=== PATIENT | female | born 1990 | race Caucasian/White ===

== ENCOUNTER 2020-03-03 14:21 | Outpatient (REF) | payer MEDICAID, SELFPAY ==
--- NOTE | 2020-03-03 | US_ITS ---
EXAMINATION: US SACROCOCCYGEAL REGION, LIMITED CLINICAL INFORMATION: Sacrococcygeal pain. COMPARISON: Lumbosacral spine radiographs dated 02/04/2017. TECHNIQUE: Using a linear array transducer, real-time ultrasound examination performed of the sacrococcygeal region. FINDINGS: The cutaneous, subcutaneous, muscular and fascial planes are unremarkable. No mass or fluid collection is seen. US/US pelvic limited IMPRESSION: Unremarkable examination.
== END 2020-03-03 14:22 | disposition home or self-care (01) ==
LOC: HO.US 14:21
PROVIDERS: PCP Internal Medicine; Visit Provider Emergency Medicine
DX: M53.3 Sacrococcygeal disorders, not elsewhere classified (principal)
CPT/HCPCS: 76857

== ENCOUNTER 2020-09-05 10:05 | Outpatient (REF) | payer MEDICAID, SELFPAY ==
--- NOTE | ~2020-09-05 | US_ITS ---
EXAMINATION: US THYROID CLINICAL INFORMATION: Goiter COMPARISON: None TECHNIQUE: Linear transducer hu-scale and color Doppler examination with attention to the region of the thyroid. FINDINGS: SIZE: Measurements of the thyroid lobes and nodules are given in sagittal, anteroposterior and transverse dimensions respectively. Right Thyroid Lobe: 4.89 x 1.66 x 1.78 cm, volume 7.57 mL. Parenchyma: The gland echotexture is heterogeneous. Thyroid vascularity is normal. Left Thyroid Lobe: 4.36 x 1.60 x 2.11 cm, volume 7.72 mL. Parenchyma: The gland echotexture is heterogeneous. Thyroid vascularity is normal. Isthmus: 0.61 cm in maximum AP dimension. There is a 0.8 x 0.8 x 0.8 cm solid lesion exophytic to the lateral lower pole of the left lobe. This is slightly hypoechoic with respect to the thyroid gland and demonstrates mild central vascularity. It is uncertain whether this represents a exophytic nodule or parathyroid adenoma or possibly an abnormal appearing lymph node. NODES: There is bilateral cervical lymphadenopathy with 2 right cervical lymph nodes and for left cervical lymph nodes seen... Largest lymph nodes are level 3 lymph nodes on the right measuring 1.8 x 0.8 x 1 cm and 2 x 0.7 x 0.8 cm. Lymph nodes demonstrate normal ultrasound morphology and flow. US/US thyroid IMPRESSION: Heterogeneous thyroid gland. The thyroid gland is normal in size. There is question of an 8 mm exophytic nodule adjacent to the lateral inferior left lobe, parathyroid adenoma or abnormal-appearing lymph node. There is bilateral cervical lymphadenopathy, left greater than right. Correlation with clinical findings and ultrasound follow-up recommended. ACR TI-RADS RECOMMENDATION REFERENCE: Ultrasound-guided fine-needle aspiration, followup ultrasound, no further follow up. * TR1 (0 point) and TR 2 (2 points): No FNA or follow up * TR3 (3 points): FNA if more than or equal to 2.5 cm in maximum dimension, followup ultrasound in 1, 3 and 5 years if 1.5 to 2.4 cm in maximum dimension. * TR4 (4-6 points): FNA if more than or equal to 1.5 cm in maximum dimension, followup ultrasound in 1, 2, 3 and 5 years if 1 to 1.4 cm in maximum dimension. * TR5 (more than or equal to 7 points): FNA if more than or equal to 1 cm in maximum dimension, followup ultrasound every year for 5 years if 0.5 to 0.9 cm in maximum dimension. * TR3, TR4 or TR5 nodules that are below the size threshold for follow up receive no follow up.
== END 2020-09-05 10:06 | disposition home or self-care (01) ==
LOC: HO.HMGCX 10:05
PROVIDERS: PCP Internal Medicine; Visit Provider Internal Medicine
DX: E01.0 Iodine-deficiency related diffuse (endemic) goiter (principal)
CPT/HCPCS: 76536

== ENCOUNTER → 2022-09-18 10:24 | Outpatient (BNVA) | payer MEDICAID, SELFPAY | PROVIDERS: PCP Internal Medicine; Visit Provider Surgery Vascular Surgery | DX: I83.11 Varicose veins of right lower extremity with inflammation (principal) | CPT/HCPCS: 99202 ==

== ENCOUNTER 2022-10-03 10:22 | Outpatient (REF) | payer MEDICAID, SELFPAY ==
--- NOTE | ~2022-10-03 | US_ITS ---
EXAMINATION: US LOWER EXTREMITY VENOUS (REFLUX EXAM), BILATERAL CLINICAL INDICATION: Varicose veins COMPARISON: None. TECHNIQUE: Color flow triplex imaging and compression Doppler was performed to evaluate both the deep and the superficial systems bilaterally. To evaluate the superficial system, the examination was performed in the upright position. Color-flow Doppler ultrasound and compression ultrasound were utilized. In addition, maneuvers were utilized to demonstrate reflux. FINDINGS: 1. DEEP VENOUS ULTRASOUND OF THE RIGHT LOWER EXTREMITY: Common Femoral Vein: Compressible, normal respiratory variation and augmented flow. Femoral Vein: Compressible, normal color flow and augmentation. Popliteal Vein: Compressible, normal augmentation. Deep Reflux: There is a 932ms venous reflux in the mid femoral vein. There is no evidence of a Corey's cyst. 2. SUPERFICIAL ULTRASOUND WITH DOPPLER OF RIGHT LOWER EXTREMITY: GREAT SAPHENOUS VEIN: Saphenofemoral Junction: 0.7 cm; Reflux: 0 ms Proximal Thigh: 0.5 cm; Reflux: 0 ms Mid Thigh: 0.4 cm; Reflux: 0 ms Above Knee: 0.5 cm; Reflux: 0 ms At Knee: 0.5 cm; Reflux: 0 ms Below Knee: 0.4 cm; Reflux: 0 ms Mid Calf: 0.4 cm; Reflux: 0 ms Ankle: 0.4 cm; Reflux: 0 ms DUPLICATED MEDIAL GREAT SAPHENOUS VEIN: Diameter: None imaged DUPLICATED LATERAL GREAT SAPHENOUS VEIN: Proximal: 0.2 cm; Reflux: 0 ms Distal: 0.2 cm; Reflux: 0 ms SMALL SAPHENOUS VEIN: Proximal: 0.2 cm; Reflux: 0 ms Distal: 0.2 cm; Reflux: 0 ms VEIN OF GIACOMINI: Size: NA Reflux: NA PERFORATORS: Location: GSV calf mid Size: 0.2cm Reflux: NA VARICOSITIES: Location: Mid calf Size: 0.2 Reflux: 3548ms 3. DEEP VENOUS ULTRASOUND OF THE LEFT LOWER EXTREMITY: Common Femoral Vein: Compressible, normal respiratory variation and augmented flow. Femoral Vein: Compressible, normal color flow and augmentation. Popliteal Vein: Compressible, normal augmentation. Deep Reflux: There is no evidence of reflux in the deep system in either the common femoral vein or the popliteal vein. There is no evidence of a Corey's cyst. 4. SUPERFICIAL ULTRASOUND WITH DOPPLER OF LEFT LOWER EXTREMITY: GREAT SAPHENOUS VEIN: Saphenofemoral Junction: 0.8 cm; Reflux: 0 ms Proximal Thigh: 0.6 cm; Reflux: 0 ms Mid Thigh: 0.4 cm; Reflux: 1880 ms Above Knee: 0.5 cm; Reflux: 0 ms At Knee: 0.3 cm; Reflux: 0 ms Below Knee: 0.3 cm; Reflux: 0 ms Mid Calf: 0.3 cm; Reflux: 0 ms Ankle: 0.3 cm; Reflux: 0 ms DUPLICATED MEDIAL GREAT SAPHENOUS VEIN: Diameter: None imaged Reflux: NA DUPLICATED LATERAL GREAT SAPHENOUS VEIN: Proximal: 0.4 cm; Reflux: 0 ms SMALL SAPHENOUS VEIN: Proximal: 0.3 cm; Reflux: 0 ms Distal: 0.2 cm; Reflux: 0 ms VEIN OF GIACOMINI: Size: NA Reflux: NA PERFORATORS: Location: Distal calf Size: 0.2cm Reflux: NA VARICOSITIES: Location: Thigh distal Size: 0.3 Reflux: 3364ms Location: Knee Size: 0.3 Reflux: 2744ms US/US venous duplex LE BI IMPRESSION: 1. Right: No evidence of deep venous thrombosis. 2. No reflux in the bilateral great saphenous veins or small saphenous veins. 3. Reflux in the right mid femoral vein. 4. Multiple refluxing varicosities in the left lower extremity.
== END 2022-10-03 10:23 | disposition home or self-care (01) ==
LOC: HO.US 10:22
PROVIDERS: PCP Internal Medicine; Visit Provider Surgery Vascular Surgery
DX: I83.11 Varicose veins of right lower extremity with inflammation (principal)
CPT/HCPCS: 93970

== ENCOUNTER 2022-11-08 10:04 | Outpatient (REF) | payer MEDICAID, SELFPAY ==
--- NOTE | ~2022-11-08 | XR_ITS ---
EXAMINATION: XR KNEE, RIGHT CLINICAL INFORMATION: Pain. COMPARISON: None available. TECHNIQUE: Two views of the right knee. FINDINGS: Somewhat limited by overpenetration. No fracture or joint effusion appreciated. Alignment is anatomic. Joint spaces are maintained. No abnormal soft tissue calcification. XR/XR knee RT 2V IMPRESSION: Essentially unremarkable plain film examination of the right knee.
== END 2022-11-08 10:05 | disposition home or self-care (01) ==
LOC: HO.HHCX 10:04
PROVIDERS: Visit Provider Internal Medicine
DX: M25.561 Pain in right knee (principal)
CPT/HCPCS: 73560

== ENCOUNTER 2022-11-15 13:58 | Outpatient (AMB) | payer MEDICAID, SELFPAY ==
[2022-11-15 13:59] VITALS: BMI 30.7
--- NOTE | 2022-11-15 13:59 | MHC.OFFVIS ---
Intake Vital Signs 11/15/22 13:59 Height 5 ft 4 in Weight 179 lb BMI 30.7 Intake Visit Reasons: f/u s/p 10/03/22 Intake Note: follow up 10/03/22 for bilateral swelling and cramping, pt states Right LE is worse than the Left LE Accompanied by: Self / Same As Patient Allergies No Known Allergies Allergy (Verified 11/15/22 14:02) HPI f/u s/p 10/03/22 HPI Details Very pleasant 32-year-old female presents for follow-up regarding venous disease. Her biggest complaint is her right knee. She notes some discomfort in particular the posterior aspect of her knee. Coincidentally she does have some spider telangiectasias in that area. In general no specific changes since her last visit. She now presents for follow-up with venous insufficiency testing. FOR[facility]LY [facility] Surgical History H/O tubal ligation (~2019) Review of Systems Const All systems reviewed & are unremarkable except as noted in HPI and below Reports no additional complaints ENT Reports Normal hearing present Card Denies chest pain, Denies chest pain at rest, Denies chest pain with activity and Denies pedal edema Resp Denies cough GI Denies abdominal pain Musc Denies abnormal gait, Denies muscle cramps and Denies radiating pain into limb Skin/Breast Denies skin ulcer and Denies wounds Neuro Reports Normal hearing present and Denies abnormal gait Psych Reports no additional complaints Physical Exam Vital Signs: BMI result Body Mass Index 30.7 Const General: cooperative, healthy appearing and comfortable Orientation/consciousness: oriented to person, oriented to place and oriented to time HEENT Head: Yes normal to inspection Neck Neck: Yes normal visual inspection Carotids: no bruits Chest Chest palpation & inspection: normal inspection of the chest Resp Effort & Inspection: normal respiratory effort and able to speak in complete sentences Auscultation: clear to auscultation bilaterally, no crackles, no rales, no rhonchi and no wheezes Cardio Rate: regular rate Rhythm: regular rhythm Heart sounds: S1 normal heart sound present and S2 normal heart sound present Bruits: no carotid bruits Peripheral pulses: Peripheral pulses 2+ throughout GI Inspection: Yes normal to inspection Skin Other: Right knee spider telangiectasias Wounds: no wounds Hair: normal Neuro General: oriented to person, oriented to place and oriented to time Cranial nerves: Yes CN's II-XII intact bilaterally and Yes Normal hearing present Cognition (Neuro): normal cognition Motor exam (neuro): 5/5 motor strength present throughout Extrem Other: venous exam: +1 edema General: No clubbing, No cyanosis and Yes edema Psych Appearance: grossly normal Mental Status: mental status grossly normal Speech and movement: Normal speech and movement present Results Reviewed Results Reviewed: Brief summary of venous insufficiency testing is as follows: right great saphenous vein: negative right small saphenous vein: negative right accessory vein: none present left great saphenous vein: negative left small saphenous vein: negative left accessory vein: none present Please note there is no evidence of any venous aneurysms or significant tortuosity Assessment & Plan Assessment & Plan (1) Varicose veins of right lower extremity with inflammation: Code(s): I83.11 - Varicose veins of right lower extremity with inflammation Plan: In short patient is negative for any significant venous insufficiency. She does have some spider telangiectasias. I do believe it is more musculoskeletal in nature as her knees the source of discomfort. We did discuss routine conservative measures including compression elevation and exercise. The patient will follow up with us on an as-needed basis. Thank you for allowing us to assist in her care. If there are any questions or concerns please do not hesitate to contact us. Coding Level of Care Code Est Pt Level 4 (29892) Diagnoses Varicose veins of right lower extremity with inflammation I83.11
== END 2022-11-15 15:07 | disposition home or self-care (01) ==
PROVIDERS: PCP Internal Medicine; Visit Provider Surgery Vascular Surgery
DX: I83.11 Varicose veins of right lower extremity with inflammation (principal)
CPT/HCPCS: 99213

== ENCOUNTER → 2022-11-15 13:58 | Outpatient (BNVA) | payer MEDICAID, SELFPAY | PROVIDERS: PCP Internal Medicine; Visit Provider Surgery Vascular Surgery ==

== ENCOUNTER 2024-01-22 09:12 | Outpatient (REF) | payer MEDICAID, SELFPAY ==
[2024-01-22 14:57] LABS: Basophils Percent Auto 0.7 % (0-2); Eosinophils Absolute Auto 0.1 X10*3/uL (0.0-0.4); Eosinophils Percent Auto 1.5 % (0-4); Hematocrit 43.1 % (37.0-47.0); Hemoglobin 13.7 g/dl (12.0-16.0); Lymphocytes Absolute Auto 1.9 X10*3/uL (1.2-4.9); MANUAL DIFF FLAG SCAN; Mean Corpuscular HGB Conc 31.8 g/dl (31.0-35.0); Mean Corpuscular Hemoglobin 28.2 pg (27.0-33.0); Mean Corpuscular Volume 88.7 fL (80.0-98.0); Monocytes Absolute Auto 0.3 X10*3/uL (0.1-1.2); Monocytes Percent Auto 6.8 % (2-11); Neutrophils Absolute Auto 1.8 x10*3/uL (2.0-8.3); PLT CLUMP 1; Red Blood Count 4.86 X10*6/uL (4.20-5.50); Red Cell Distribution Width 15.1 % (11.0-16.0); SCAN SMEAR FLAG 1; White Blood Count 4.1 X10*3/uL (4.8-10.8)
[2024-01-22 15:19] LABS: Alanine Aminotransferase 14 U/L (0-31); Albumin Level 4.1 g/dL (3.5-5.0); Alkaline Phosphatase 77 U/L (39-117); Anion Gap 11 (12-20); Aspartate Amino Transferase 16 U/L (5-31); Bilirubin Total 1.8 mg/dL (0.0-1.0); Blood Urea Nitrogen 8 mg/dL (9-16); Calcium 9.2 mg/dL (8.4-10.2); Carbon Dioxide 25 mmol/L (22-29); Chloride 108 mmol/L (96-108); Cholesterol 132 mg/dL (<200); Estimated Glomerular Filt Rate > 60; Glucose Random 91 mg/dL (60-115); HDL Cholesterol 36 mg/dL (>40); LDL Cholesterol Calculated 79 mg/dL (<100); Sodium 140 mmol/L (135-145); Total Protein 7.4 g/dL (6.5-8.0); Triglycerides 89 mg/dL (<150)
[2024-01-22 15:27] LABS: TSH reflex Free T4 1.26 uIU/mL (0.32-4.0)
[2024-01-22 18:27] LABS: Mean Platelet Volume 13.9 fL (9.4-12.3); Platelet Count 165 X10*3/uL (160-400)
[2024-01-22 18:28] LABS: SLIDE REVIEW VERIFIED
[2024-01-23 08:46] LABS: HIV AB/AG Nonreactive (Nonreactive); HIV Num 1 0.06 S/CO (0.00-0.99); ~HepC Num1 0.15 S/CO (0.00-0.79); ~Hepatitis C Antibody Nonreactive (Nonreactive)
== END 2024-01-22 09:13 | disposition home or self-care (01) ==
LOC: HO.CHCLDS 09:12
PROVIDERS: Visit Provider Internal Medicine
DX: E03.8 Other specified hypothyroidism (principal)
CPT/HCPCS: 36415; 80053; 80061; 84443; 85025; 86803; 87389

== ENCOUNTER 2024-04-06 18:22 | Emergency (ER) | payer MEDICAID, SELFPAY ==
--- NOTE | ~2024-04-06 | US_ITS ---
EXAMINATION: US ABDOMEN LIMITED CLINICAL INFORMATION: Right upper quadrant pain. COMPARISON: None available. TECHNIQUE: Real-time imaging of the right upper quadrant abdominal viscera. FINDINGS: PANCREAS: Visualized portions are unremarkable. LIVER: The liver is normal in size. The liver contour is normal. Parenchymal echogenicity is normal. No focal hepatic lesion. There is no intrahepatic biliary duct dilatation seen. GALLBLADDER: Multiple gallstones, which are impacted.. Marked posterior acoustic shadowing.. This limits evaluation of the gallbladder wall and pericholecystic soft tissue.. Manager News reports tenderness in the area of the gallbladder. COMMON BILE DUCT: Normal in caliber measuring 0.2 cm in diameter. RIGHT KIDNEY: No hydronephrosis. No renal calculi or focal parenchymal lesions. The kidney measures 10.4 cm in maximum dimension. FREE FLUID: None. US/US abdomen limited IMPRESSION: Multiple impacted gallstones. Marked posterior acoustic shadowing, limits evaluation of the gallbladder in the surrounding structures.. Manager News reports tenderness in the area of the gallbladder. Findings raise concern for acute cholecystitis. Recommend clinical correlation and management. HIDA scan or short-term follow-up ultrasound for further evaluation as clinically indicated. If clinically warranted, CT scan could be obtained for further evaluation as well. Electronically signed by: Shaquille Majano MD 04/06/2024 10:03 PM [facility]UNN
[2024-04-06 18:25] VITALS: BP 122/86; PULSE 68; RESP 16; TEMP 37; O2SAT 100; BMI 24.0
--- NOTE | 2024-04-06 18:29 | ED_ITS ---
HPI - General Adult General Chief complaint: Abdominal Pain Stated complaint: abdominal pain Time Seen by Provider: 04/06/24 20:53 History of Present Illness ED Provider: Arabella AGUILLON narrative: The patient is a 33-year-old female who says that she has been having problems with the right upper quadrant abdominal pain for a few months. It has been much worse over the last 2 days. Today she had worsening pain after eating lunch and ultimately came to the emergency room this evening. She says that she was told that she had gallstones 11 years ago when she was . The patient says that she feels the pain in her right upper quadrant. She also says that she feels it in her shoulder area. She has had no fever. She has had nausea but no vomiting. No diarrhea. No urinary symptoms. The patient has a history of a tubal ligation and a ?tummy tuck.? Related Data Home Medications ?Medication ?Instructions ?Recorded ?Confirmed levothyroxine 13 mcg capsule 13 mcg PO DAILY 11/15/22 Allergies Allergy/AdvReac Type Severity Reaction Status Date / Time Penicillins AdvReac Swelling Verified 04/06/24 18:27 Review of Systems 2 Review of Systems: Yes all other systems are reviewed and are negative PMFSH Past Medical History Surgical History H/O tubal ligation (~2019) Social History Social History Smoked in Last 30 Days: No Use of substances other than those prescribed or required for medical reasons: No Advance Directives: No Advance Directives Information Provided: No Do you have a plan to hurt others: No Plan Physical Exam ED Vital Signs: Vital Signs - 24 hr 04/06/24 18:25 04/06/24 20:47 04/06/24 23:10 Temperature 98.6 F 97.7 F 98.0 F Pulse Rate 68 58 67 Respiratory Rate 16 16 16 Blood Pressure 122/86 116/78 120/83 Pulse Oximetry 100 97 99 Oxygen Delivery Method Room Air Room Air Room Air 04/06/24 23:13 Temperature 98.0 F Pulse Rate 67 Respiratory Rate 16 Blood Pressure 120/83 Pulse Oximetry 99 Oxygen Delivery Method Room Air BMI result Body Mass Index 24.0 Const Other: The patient is a 33-year-old woman who looks as if she is ordinarily in good health. She is awake and alert. She does not appear obviously acutely ill, however she occasionally seemed in discomfort. HENMT Head: Yes normal to inspection Face and sinus: Yes normal facial exam Mouth: Normal oral and palatal mucosa present and moist mucous membranes Eyes General: appearance normal, both eyes and all related structures Neck Neck: Yes full ROM Resp Effort & Inspection: normal respiratory effort Auscultation: clear to auscultation bilaterally Cardio Rate: regular rate Rhythm: regular rhythm Heart sounds: S1 normal heart sound present and S2 normal heart sound present GI Other: The abdomen is flat and soft. She is quite tender in the right upper quadrant. Skin Other: Skin is dry and unremarkable Neuro Other: The patient is awake and alert with a normal mental status. Cranial nerves are intact. She moves her extremities normally and appropriately. Extrem Other: No calf swelling or tenderness. No peripheral edema. No asymmetry. Course Course Course Narrative: This is an RME done by [facility] Ascencio: Additional HPI, ROS, PE not included below will be deferred to primary provider. 33-year-old female presents with right upper quadrant abdominal pain for a few weeks worsening acutely. Reports pain is worse with movement, breathing, she reports it is severe. Stabbing pain. Associated nausea no vomiting. No chances of . On exam discomfort to right upper quadrant. Plan labs, urine, imaging Medications Administered Discontinued Medications Generic Name Dose Route Start Last Admin Trade Name Freq PRN Reason Stop Dose Admin Sodium Chloride 1,000 mls @ 999 mls/hr 04/06/24 21:15 04/06/24 23:07 Ns IV 04/06/24 22:15 Infused .Q1H1M WILLOW Infusion Ketorolac Tromethamine 10 mg 04/06/24 21:15 04/06/24 21:28 Ketorolac Tromethamine 15 Mg/Ml Vial IVPUSH 04/06/24 21:16 10 mg ONCE ONE Administration Medical Decision Making Medical Decision Making [facility] Narrative: The patient is a 33-year-old woman who presents with 2 days of right upper quadrant pain. She says she has had mild pains for several months but they are much worse over the last 2 days. Pains are worse after eating greasy foods. She says that she was told 11 years ago when she was that she had gallstones. The patient's workup today shows a gallbladder ultrasound that shows multiple gallstones impacted in the gallbladder. The shadowing artifact created by these gallstones limits the description of the gallbladder wall. There was a reported sonographic Espinoza's sign. The patient's labs are unremarkable. She has a white count of 5.5 with a normal differential. LFTs and lipase are unremarkable. C-reactive protein minimally elevated at 0.98. My overall impression is that the patient is having symptomatic cholelithiasis. I doubt that she has cholecystitis. The patient was treated with ketorolac for her pain. I contacted the on-call surgeon, Dr. Rose, and explained that the patient was having a great deal of symptoms related to gallstones last 2 days. His recommendation is for discharge with prompt outpatient follow up. The patient will be instructed to avoid fatty or greasy foods. She should contact the General surgery office in the morning for a prompt follow up appointment. The patient seems comfortable with this plan. She knows that if she develops a fever or vomiting she should return immediately to the emergency room. Lab Data 04/06/24 18:45 04/06/24 18:45 Labs: Lab Results 04/06/24 Range/Units 18:45 WBC 5.5 (4.8-10.8) X10*3/uL RBC 4.49 (4.20-5.50) X10*6/uL Hgb 13.1 (12.0-16.0) g/dl Hct 38.9 (37.0-47.0) % MCV 86.6 (80.0-98.0) fL MCH 29.2 (27.0-33.0) pg MCHC 33.7 (31.0-35.0) g/dl RDW 14.7 (11.0-16.0) % Plt Count 175 (160-400) X10*3/uL MPV 12.7 H (9.4-12.3) fL Immature Gran % (Auto) 0.2 (0.0-0.4) % Neut % (Auto) 48.1 (45-73) % Lymph % (Auto) 42.7 H (20-40) % Steele % (Auto) 7.0 (2-11) % Eos % (Auto) 1.5 (0-4) % Baso % (Auto) 0.5 (0-2) % Lymph # (Auto) 2.3 (1.2-4.9) X10*3/uL Steele # (Auto) 0.4 (0.1-1.2) X10*3/uL Eos # (Auto) 0.1 (0.0-0.4) X10*3/uL Baso # (Auto) 0.0 (0.0-0.2) X10*3/uL Abs Immat Gran (auto) 0.01 (0.00-0.03) X10*3/uL Absolute Neuts (auto) 2.6 (2.0-8.3) x10*3/uL Absolute Nucleated RBC 0.000 (0.0-0.012) X10*3/uL Nucleated RBC % (auto) 0.0 (0.0-0.2) /100WBC Sodium 140 (135-145) mmol/L Potassium 3.8 (3.3-5.1) mmol/L Chloride 108 (96-108) mmol/L Carbon Dioxide 25 (22-29) mmol/L Anion Gap 11 L (12-20) BUN 12 (9-16) mg/dL Creatinine 0.93 (0.5-1.4) mg/dL Estim Creat Clear Calc 75.0 Estimated GFR > 60 Random Glucose 117 H (60-115) mg/dL Calcium 8.9 (8.4-10.2) mg/dL Magnesium 2.2 (1.6-2.6) mg/dL Total Bilirubin 1.7 H (0.0-1.0) mg/dL Direct Bilirubin 0.4 (0.0-0.5) mg/dL AST 23 (5-31) U/L ALT 22 (0-31) U/L Alkaline Phosphatase 73 (39-117) U/L C-Reactive Protein 0.98 H (< or = 0.50) mg/dL Total Protein 7.3 (6.5-8.0) g/dL Albumin 4.0 (3.5-5.0) g/dL Lipase 27 (8-78) U/L Beta HCG, Quant < 2 mIU/mL Discharge Plan Discharge Clinical Impression: Symptomatic cholelithiasis Patient Disposition: Home, Self-Care Instructions: Biliary Colic (ED), Gallstones (ED) Additional Instructions: Please plan on calling the General surgery office 1st thing in the morning. Call [phone]. Explained that you were in the emergency room and that the emergency room doctor communicated with Dr. Rose about your gallbladder and your gallstones and that you were to be seen soon. Between now and the time you see Dr. Rose I would recommend eating very little. What you do each should be planned and should also be very low in fat. No greasy food, no butter, no spicy food. If at any point you develop a fever or vomiting or feel significantly worse return to the emergency department. Prescriptions: No Action levothyroxine 13 mcg capsule 13 mcg PO DAILY Referrals: Vitor Rose MD [Physician] - (Symptomatic cholelithiasis, impacted gallstones) Interventions: ED Discharge Assessment Last Done: 04/06/24 23:13 Discharge Date/Time: 04/06/24 23:13 Print Language: Citizen Of [place]
[2024-04-06 18:50] LABS: MANUAL DIFF FLAG NO
[2024-04-06 18:52] LABS: Basophils Percent Auto 0.5 % (0-2); Eosinophils Absolute Auto 0.1 X10*3/uL (0.0-0.4); Eosinophils Percent Auto 1.5 % (0-4); Hematocrit 38.9 % (37.0-47.0); Hemoglobin 13.1 g/dl (12.0-16.0); Imm Gran Abs Auto 0.01 X10*3/uL (0.00-0.03); Imm Gran Pct Auto 0.2 % (0.0-0.4); Lymphocytes Absolute Auto 2.3 X10*3/uL (1.2-4.9); Lymphocytes Percent Auto 42.7 % (20-40); Mean Corpuscular HGB Conc 33.7 g/dl (31.0-35.0); Mean Corpuscular Hemoglobin 29.2 pg (27.0-33.0); Mean Corpuscular Volume 86.6 fL (80.0-98.0); Mean Platelet Volume 12.7 fL (9.4-12.3); Monocytes Absolute Auto 0.4 X10*3/uL (0.1-1.2); Neutrophils Absolute Auto 2.6 x10*3/uL (2.0-8.3); Neutrophils Percent Auto 48.1 % (45-73); Platelet Count 175 X10*3/uL (160-400); Red Blood Count 4.49 X10*6/uL (4.20-5.50); Red Cell Distribution Width 14.7 % (11.0-16.0); White Blood Count 5.5 X10*3/uL (4.8-10.8)
[2024-04-06 19:26] LABS: Alanine Aminotransferase 22 U/L (0-31); Alkaline Phosphatase 73 U/L (39-117); Anion Gap 11 (12-20); Aspartate Amino Transferase 23 U/L (5-31); Bilirubin Total 1.7 mg/dL (0.0-1.0); Blood Urea Nitrogen 12 mg/dL (9-16); Calcium 8.9 mg/dL (8.4-10.2); Carbon Dioxide 25 mmol/L (22-29); Chloride 108 mmol/L (96-108); Estimated Glomerular Filt Rate > 60; Glucose Random 117 mg/dL (60-115); Lipase 27 U/L (8-78); Magnesium 2.2 mg/dL (1.6-2.6); Potassium 3.8 mmol/L (3.3-5.1); Sodium 140 mmol/L (135-145); Total Protein 7.3 g/dL (6.5-8.0)
[2024-04-06 19:28] LABS: HCG Quantitative < 2 mIU/mL
[2024-04-06 20:47] VITALS: BP 116/78; PULSE 58; RESP 16; TEMP 36.5; O2SAT 97
[2024-04-06 21:24] LABS: C Reactive Protein 0.98 mg/dL (< or = 0.50)
[2024-04-06] MEDS: 0.9 % Sodium Chloride 1,000 ML 999 ML IV (21:27)
[2024-04-06] MEDS: Ketorolac Tromethamine 15 MG/ML VIAL 10 MG IVPUSH (21:28)
[2024-04-06 22:05] LABS: Bilirubin Direct 0.4 mg/dL (0.0-0.5)
[2024-04-06 23:10] VITALS: BP 120/83; PULSE 67; RESP 16; TEMP 36.7; O2SAT 99
[2024-04-06 23:13] VITALS: BP 120/83; PULSE 67; RESP 16; TEMP 36.7; O2SAT 99
== END 2024-04-06 23:13 | disposition home or self-care (01) ==
PROVIDERS: Physician Assistant; Emergency Provider Emergency Medicine
DX: K80.20 Calculus of gallbladder without cholecystitis without obstruction (principal); R10.11 Right upper quadrant pain; Z98.51 Tubal ligation status
CPT/HCPCS: 36415; 76705; 80053; 82248; 83690; 83735; 84702; 85025; 86140; 96361; 96374; 99284; J1885

== ENCOUNTER 2024-04-13 13:31 | Outpatient (AMB) | payer MEDICAID, SELFPAY ==
[2024-04-13 13:52] VITALS: BP 121/84; PULSE 69; BMI 26.1
--- NOTE | 2024-04-13 13:52 | MHC.OFFVIS ---
Vital Signs 04/13/24 13:52 Height 5 ft 4 in Weight 152 lb BMI 26.1 BP 121/84 Blood Pressure Location Lt brachial Position Sitting Pulse 69 Intake Visit Reasons: ER Gallstones [id number] Intake Note: Patient referred after ER visit. Patient c/o: abdominal pain due her gall bladder Abd US: 04-06-2024 Public Health Policy Analyst Required: Yes Public Health Policy Analyst Name: alen [id number] Accompanied by: Self / Same As Patient Allergies Penicillins Adverse Reaction (Verified 04/13/24 13:52) Swelling HPI Comments Details: Patient presents status post recent ER visit for symptomatic gallstones/recurrent biliary colic. Workup which included sonogram demonstrated significant cholelithiasis. Patient presents here for follow-up. She is otherwise tolerating a diet. Having regular bowel habits. Her symptoms have included postprandial pain rated upper quadrant/epigastrium radiating around to her back. She has never been jaundiced before. Chart was reviewed and patient evaluated. Patient was status post abdominal plasty. FORMERLY [facility] Surgical History H/O tubal ligation (~2019) Physical Exam Vital Signs: Last Vital Signs Pulse 69 04/13/24 13:52 BP 121/84 04/13/24 13:52 BMI result Body Mass Index 26.1 Eyes Other: Anicteric Chest Other: Chest breath sounds bilaterally, HS 1 in 2 GI Other: Abdomen is soft, benign. Assessment & Plan Assessment & Plan (1) Recurrent biliary colic: Code(s): K80.50 - Calculus of bile duct without cholangitis or cholecystitis without obstruction Category: Surgical Plan Risks, benefits, and alternatives laparoscopic possible open cholecystectomy reviewed with the patient and included but not limited to bleeding, infection, recurrence of symptoms, numbness, pain, scarring, bowel or bile duct injury or leak and the patient wished to proceed. All questions answered. Arrangements were made for a date that is convenient for her Coding Level of Care Code New Pt Level 5 (65299) Diagnoses Recurrent biliary colic K80.50
== END 2024-04-13 14:18 | disposition home or self-care (01) ==
PROVIDERS: Visit Provider Surgery
DX: K80.50 Calculus of bile duct without cholangitis or cholecystitis without obstruction (principal)
CPT/HCPCS: 99205

== ENCOUNTER → 2024-04-13 13:31 | Outpatient (BNVA) | payer MEDICAID, SELFPAY | PROVIDERS: Visit Provider Surgery | DX: K80.50 Calculus of bile duct without cholangitis or cholecystitis without obstruction (principal) | CPT/HCPCS: 99202 ==

== ENCOUNTER 2024-05-28 08:12 | Day surgery (SDC) | payer MEDICAID, SELFPAY ==
[2024-05-26 14:49] VITALS: BMI 26.1
--- NOTE | 2024-05-27 09:28 | MHC.SHP ---
Pre-Procedural Eval Section A - 24 Hr Update-Section A only Date of Service: 05/28/24 The patient is an INPATIENT: No Changes since office visit: No Cold of Flu in the past 2 weeks, No New Medical Problems, No Changes in Medication and No Patient answered all questions Section B - Complete if H&P > 30 days Chief Complaint: Calculus of bile duct without cholangitis or zay Allergies: Allergies Allergy/AdvReac Type Severity Reaction Status Date / Time Penicillins AdvReac Swelling Verified 04/13/24 13:52 Review of Systems Sugical H&P ROS: Negative: Constitution, Cardiovascular, Respiratory, Neurological, Psychiatric, Hem-Onc, Allergic/Immunologic, Gastrointestinal, Genitourinary, Musculoskeletal, Integumentary, Endocrine and Eyes/Ears/Nose/Throat Exam Surgical H&P Exam: Normal: HEENT, Normal: Heart, Normal: Lungs, Normal: Extremities, Normal: Abdomen, Normal: Skin and Normal: Neurological Plan I have reviewed the history and physical and performed a pertinent physical examination on my patient. No changes have occurred unless specified. Time Spent With Patient Time: Total time managing care of this patient today ____ minutes.
[2024-05-28] VITALS (12 sets, daily range): BP systolic 114–152; BP diastolic 77–103; PULSE 59–90; RESP 14–16; TEMP 35.9–37.1; O2SAT 94–100; BMI 27.1
--- OUTSIDE RECORDS SUMMARY | 2024-05-28 08:15 | XMS_ITS | Encounter Summary ---
Author Organization [employer] Address [address] [facility] 7 [place] [address] Care Team Providers Care Station Engineer Main Line Name Role Phone Trina Fang MD Primary Care Provider [phone] Reason for Visit * Reason Onset Date Comments FYI 01/22/2024 Encounter Details Date Type Department Care Team (Late st Contact Info) Description 01/22/2024 Telephone [facility] [address] [place] [address] Trina Fang MD [address] [place] [place], [place] [id number] FYI Social History Tobacco Use Types Packs/Day Years Used Date Smoking Tobacco: Never Passive Smoke Exposure: Never Smokeless Tobacco: Never Alcohol Use Standard Drinks/Week Comments Yes 0 (1 standard drink = 0.6 oz pur e alcohol) Depression Answer Date Recorded Patient Health Questionnaire-9 Score 4 01/21/2024 Patient Health Questionnaire-9 Score 4 01/21/2024 Last PHQ-9: Questionnaire Data Not on file 1 Housing Stability Answer Date Recorded What is your housing situation today? I have kimberly lopez 01/14/[address] you li ve. Do you have problems with any of the following? None of the above 01/14/2024 Food Insecurity Answer Date Recorded Within the past 12 months, y ou worried that your food would run out before you got money to buy more: Never True 01/14/2024 Within the past 12 months,th e food you bought just didn't last and you didn't have enough money to get more: Never True Transportation Answer Date Recorded In the past 12 months, has l ack of transportation kept you from medical appts, meetings, work or from getting things needed for daily living? No 01/14/2024 Utilities Answer Date Recorded In the past 12 months, has t he electric, gas, oil or water company threatened to shut off services in your home? No 01/14/2024 Depression Answer Date Recorded Patient Health Questionnaire-2 Score 0 01/21/2024 Internet Access Answer Date Recorded Internet Access Q1 Yes 01/14/2024 Internet Access Q2 Not on file 01/14/2024 Comments No Sex and Gender Information Value Date Recorded Sex Assigned at Female 02/19/2022 10:28 AM EDT Legal Sex Female 10:28 AM EDT Gender Identity Female 02/19/2022 10:28 AM EDT Sexual Orientation Straight 02/19/2022 10 :28 AM EDT documented as of this encounter Miscellaneous Notes * Telephone Encounter - Ni Interiano - 01/22/2024 9:48 AM EDT Tc from pt calling in regards to address change pt correct address is updated on file - [address] [place] [address], pt stated address [facility] [address] [facility] was incorrect and is unsure who added address on file. Advised will leave message as FYI. documented in this encounter Plan of Treatment Not on file documented as of this encounter Visit Diagnoses Not on filedocumented in this encounter Additional Health Concerns Assessment Noted Time PHQ-9 Depression Total Score: 4 01/21/20 24 1:31 PM EDT documented as of this encounter Care Teams Station Engineer Main Line Relationship Specialty Start Date End Date Trina Fang MD [address] [facility] [place] [address] PCP - General Internal Medicine 04/18/17 documented as of this encounter
--- OUTSIDE RECORDS SUMMARY | 2024-05-28 08:15 | XMS_ITS | Clinical Summary ---
Author Organization [address] Address [address] [place] [address], [place] [address] Care Team Providers Care Mosaic Tile Maker Name Role Phone Ruddy Logan MD Primary Care Prov ider Allergies Active Allergy Reactions Criticality Noted Date Comments Aspirin Swelling,Other (See Comments) High 10/06/2013 Gastric bleeding Latex, Natural Rubber 01/26/2014 Penicillins Hives High 10/06/2013 Shellfish Containing Products Swelling Medium 08/31/2014 Medications dextromethorphan -guaifenesin 15-400 mg Tab Take 1 tablet by mouth 2 (two) times daily as needed. 15 each 0 04/26/2014 Active norelgestromin-e thinyl estradiol (ORTHO EVRA) 150-35 mcg/[address] 1 patch onto the skin once a week. Apply to clean, dry intact skin on the buttock, abdomen, upper outer arm or upper torso 4 patch 6 09/09/2014 Active Active Problems Patient Care Coordination No te Formatting of this note migh t be different from the original. Health Literacy Screening= 3 Problem Noted Date Diagnosed Date Need for Tdap vaccination 12/13/2014 Overview (12/13/2014): No record of recent tetanus or Tdap in outside records received from [employer] [facility] Thyromegaly 08/19/2014 Overview (09/16/2014): Normal TSH and thyroid ultrasound in August 2014. Back pain, chronic 08/19/2014 Resolved Problems Problem Noted Date Diagnosed Date Resolved Date Backache 08/19/2014 Overview (10/02/2016): Updated during IMO/Dx update September 2016 Immunizations Name Administration Dates Next Due HPV, quadrivalent 11/12/2013,10/09/2013,03/04/20 13 Family History Medical History Relation Name Comments Thyroid disease Brother Diabetes Father Hypertension Father Osteoporosis Maternal Grandmother Arthritis Mother Breast cancer Neg Hx Cancer Neg Hx Colon cancer Neg Hx Heart attack Neg Hx High cholesterol Neg Hx Stroke Neg Hx Relation Name Status Comments Brother Alive Father Alive Maternal Grandmother Alive Mother Alive Sister Alive Social History Tobacco Use Types Packs/Day Years Used Date Smoking Tobacco: Never Alcohol Use Standard Drinks/Week Comments No 0 (1 standard drink = 0.6 oz pur e alcohol) Comments No Sex and Gender Information Value Date Recorded Sex Assigned at Not on file Legal Sex Female 9:45 AM EST Gender Identity Not on file Sexual Orientation Not on file Last Filed Vital Signs Vital Sign Reading Time Taken Comments Blood Pressure 108/62 09/14/2014 10:55 AM EDT Pulse 82 09/14/2014 10:55 AM EDT Temperature 36.8 ??C (98.3 ??F) 09/14/2014 10:55 AM E DT Respiratory Rate 17 09/14/2014 10:55 AM EDT Oxygen Saturation 98% 09/14/2014 10:55 AM EDT Inhaled Oxygen Concentration - - Weight 70.4 kg (155 lb 3.2 oz) 09/14/2014 10:55 AM EDT Height 164.5 cm (5' 4.76 ) 09/14/2014 10:55 AM E DT Body Mass Index 26.02 09/14/2014 10:55 AM EDT Plan of Treatment Health Maintenance Due Date Last Done Comments Tetanus adult (Td q 10,TDAP once) 2011 Cervical cancer screening 09/10/2019 09/09/2014 Influenza vaccine 11/21/2023 Covid-19 vaccine series (2023- season) 2023 RSV Discussion (1 - 1-dose 7 5+ series) 07/22/2066 HIV screening Completed 09/14/2014, 08/19/2014 Hepatitis C screening Completed 09/14/2014 Meningococcal Vaccine Aged Out No bambi michelle eligible based on patient's age to complete this topic Pneumococcal Vaccine Aged Out No long er eligible based on patient's age to complete this topic Procedures Procedure Name Priority Date/Time Associated Diagnosis Comments HIV 1/2 ANTIGEN/ANTIBODY, 4TH GENERATION W/REFL (Q) Routine 09/14/2014 11:34 AM EDT HEPATITIS C AB WITH REFLEX TO HCV PCR Routine 09/14/2014 11:34 AM EDT Routine screening for STI (sexually transmitted infection) THINPREP TIS PAP (Q) Routine 09/09/2014 4:23 PM EDT Pap smear for cervical cancer screening from Last 3 Months or Most Recently Relevant to Health Maintenance Results * HIV 1/2 antigen/antibody, 4th generation w/refl (Q) (09/14/2014 11:34 AM EDT) HIV Ag/Ab, 4th Generation NON-REACT SOREN NON-REACT SOREN [facility] Comment: A Nonreactive HIV Ag/Ab result does not exclude HIV infection since the time frame for seroconversion is variable. If acute HIV infection is suspected, a HIV-1 RNA Qualitative TMA test is recommended. PLEASE NOTE: This information has been disclosed to you from records whose confidentiality may be protected by state law. ??If your state requires such protection, then the state law prohibits you from making any further disclosure of the information without the specific written consent of the person to whom it pertains, or as otherwise permitted by law. ??A general authorization for the release of medical or other information is NOT sufficient for this purpose. The performance of this assay has not been clinically validated in patients less than 2 years old. For additional information please refer to http://education.needmade.Contently/faq/GSG780 (This link is being provided for informational/ educational purposes only.) 09/14/2014 11:3 4 AM EDT 09/14/2014 11:34 AM EDT Narrative Resulting Agency Comment Performing Organization Information: ?Site ID: [id number] ?Name: [employer] ?Address: [address] [place] [address], [facility] [place] [address] ?Director: Laura Puga MD Edel Gooden [facility] LAB BLOOD ORDERABLES Final Re sult Performing Organization Address [facility] Co de Phone Number [facility] [address] [place], [place] [id number] [place] [address] * Hepatitis C antibody (09/14/2014 11:34 AM EDT) Hepatitis C Ab NON-REACTI VE NON-REACTI VE [facility] Signal To Cut-Off 0.02 <1.00 [facility] Blood specimen (specimen) 09/14/2014 11:34 AM EDT 09/14/2014 11:34 AM EDT Narrative Resulting Agency Comment Performing Organization Information: ?Site ID: [id number] ?Name: [facility] ?Address: [address] [place] [address], [facility] [place] [address] ?Director: Laura Puga MD Edel Hymanel [facility] LAB BLOOD ORDERABLES Final Re sult Performing Organization Address [facility] de Phone Number [facility] [address] [place] [id number] [place] [address] * Thinprep TIS PAP (Q) (09/09/2014 4:23 PM EDT) Pathologist [facility] Clinical Information NONE GIVEN [facility] Lmp: 08/24/2014 [facility] Prev. Pap: NONE GIVEN [facility] Prev. Bx: NONE GIVEN [facility] Source: Cervix [facility] Statement Of Adequacy: [facility] Comment: Satisfactory for evaluation. Endocervical/transformation zone component present. Interpretation/Resu lt: [facility] Comment:Negative for intraep ithelial lesion or malignancy. Comment: [facility] Comment: This Pap test has been evaluated with computer assisted technology. Assembler Type Bar And Segment: [facility] Comment:MXD, CT (ASCP) Specimen of unknown material (specimen) 09/09/2014 4:23 PM EDT 09/10/2014 8:59 AM EDT Narrative Resulting Agency Comment Performing Organization Information: ?Site ID: [id number] ?Name: [facility] ?Address: [address] [place] [address], [place] [address] ?Director: Laura Puga MD Edel Gooden [facility] BODY FLUIDS AND STOOLS ORDERA BLES Final Result [facility] [address] [place] [address] from Last 3 Months or Most Recently Relevant to Health Maintenance Insurance [place] Care Teams Mosaic Tile Maker Relationship Specialty Start Date End Date Ruddy Logan MD [address] [place] [address] PCP - General 03/03/20
--- OUTSIDE RECORDS SUMMARY | 2024-05-28 08:15 | XMS_ITS | Clinical Summary ---
Author Organization [facility] [employer] Address [address] [place] [address] Care Team Providers Care Seismograph Shooter Name Role Phone Trina Fang MD Primary Care Provider [phone] Allergies Active Allergy Reactions Criticality Noted Date Comments Aspirin Swelling 09/03/2022 Penicillins Swelling,Unknown 01/06/2016 Shellfish Allergy Hives 09/03/2022 Other reaction(s): dyspnea Medications * This document contains information received from the source organization and may not represent a complete record from that organization. Calcium Carb-Cholecalc iferol 500-10 MG-MCG tablet Take 1 tablet by mouth at bed time. 0 Active famotidine (Pepcid) 20 MG tablet Take 1 tablet by mouth. 2 Active FLUoxetine (PROzac) 10 MG tablet Take 1 tablet by mouth at bed time. 2 Active hydrOXYzine HCl (Atarax) 25 MG tablet take 1 tablet to 2 tab by oral route at bedtime 2 Active medroxyPROGEST ERone (Depo-Provera) 400 MG/ML suspension inject 1 milliliter by intramuscular route every month Active multivitamin (Theragran) tablet Take 1 tablet by mouth. 9 Active Neomycin-Polym yxin-HC 1 % solutionIndica tions:Ear ache Administer 4 drops into affected ear(s) 4 times daily. 10 mL 3 Active Diclofenac Sodium 1 % gelIndications :Acute pain of right knee APPLY 2 GRAM'S TO AFFECTED AREA(s) TWICE DAILY NEEDED FOR SEVERE PAIN 100 g 3 Active levothyroxine (Synthroid, Levoxyl) 50 MCG tablet Take 50 mcg by mouth. 3 Active acyclovir (Zovirax) 5 % cream TO THE AFFECTED AREA(s) FIVE TIMES DAILY DIRECTED 5 g 4 Active tacrolimus (Protopic) 0.1 % ointment Apply topically 2 times daily. 60 g 1 4 11/27/19 25 Active triamcinolone (Kenalog) 0.1 % creamIndicatio ns:Psoriasis APPLY TO THE AFFECTED AREA(S) TWICE DAILY IN THE MORNING AND AT BEDTIME FOR PAIN AND FOR SWELLING 30 g 2 4 Active betamethasone valerate (Valisone) 0.1 % ointmentIndica tions:Psoriasi s Apply topically if needed in the morning and at bedtime (dryness). 45 g 2 4 Active Active Problems Problem Noted Date Diagnosed Date Acute pain of right knee 11/08/2022 Assessment & Plan (11/08/2022 10:01 AM EDT): Apply ice elevate knee and rest Hypothyroid 08/07/2022 Encounters Date Type Department Care Team Description 05/26/2024 Refill [facility] [address] [place] [address] Jasper Alvarez MD 04/07/2024 10:30 AM EST Office Visit [facility] [address] [place] [address] Trina Fang MD Psoriasis (Primary Dx) 04/07/2024 Travel 03/26/2024 Refill [facility] [address] [place] [address] Trina Fang MD Psoriasis 03/06/2024 8:00 AM EST Office Visit [facility] [address] [place] [address] Julito Ortiz from Last 3 Months Social History Tobacco Use Types Packs/Day Years Used Date Smoking Tobacco: Never Passive Smoke Exposure: Never Smokeless Tobacco: Never Tobacco Cessation:Counseling Given: Not Answered Alcohol Use Standard Drinks/Week Comments Yes 0 [...] Orientation Straight 02/19/2022 10 :28 AM EDT Last Filed Vital Signs Vital Sign Reading Time Taken Comments Blood Pressure 122/77 04/07/2024 10:34 AM EST Pulse 61 04/07/2024 10:34 AM EST Temperature 36.7 ??C (98 ??F) 04/07/2024 10:34 AM EST Respiratory Rate 20 04/07/2024 10:34 AM EST Oxygen Saturation 99% 04/07/2024 10:34 AM EST Inhaled Oxygen Concentration - - Weight 72.6 kg (160 lb) 04/07/2024 10:34 AM EST Height 162.6 cm (5' 4 ) 04/07/2024 10:34 AM EST Body Mass Index 27.46 04/07/2024 10:34 AM EST Plan of Treatment Health Maintenance Due Date Last Done Comments Alcohol/Substance Use Screening 2003 Family Planning (PISQ) 07/22/2006 Hepatitis A Vaccines (1 of 2 - Risk 2-dose series) 07/22/2010 HPV Vaccines (3 - 3-dose series) 02/04/2014 11/12/2013, 10/09/2013, 03/04/2013 COVID-19 Vaccine (3 - 2023-2 5 season) 2023 11/08/2020, 10/18/2020 Influenza Vaccine (#1) 2023 02/10/2015 Dental Oral Exam 06/25/2024 12/26/2023, 05/21/2022 Dental Prophylaxis 06/25/2024 12/26/2023, 11/21/2022, 05/21/2022 Dental X-Ray: Bitewings 12/26/2024 12/26/19 24, 05/21/2022, 05/21/2022 SDOH Screening 01/13/2025 01/14/2024 Depression Screening 01/20/2025 01/21/2024, 01/21/2024 Tobacco Screening 04/07/2025 04/07/2024 Dental X-Ray: Full Mouth 05/22/2025 023, 05/21/2022 Cervical Cancer Screening 09/22/2027 HPV/Cotest 09/22/2027 09/21/2022 Pap Smear 09/22/2027 09/21/2022 DTaP/Tdap/Td Vaccines (4 - T d or Tdap) 06/10/2028 06/10/2018, 10/04/2015, 02/15/2015 Zoster Vaccines (1 of 2) 07/22/2041 RSV Patients and Patients Aged 60 years or older (1 - 1-dose 75+ series) 07/22/2066 Hepatitis B Vaccines Completed 10/18/2016, 03/24/2015, 02/15/2015 HIV Screening Completed 01/22/2024 Hepatitis C Screening Completed 01/22/2024 , 08/09/2022 HIB Vaccines Aged Out No longer eligi ble based on patient's age to complete this topic IPV Vaccines Aged Out No longer eligi ble based on patient's age to complete this topic Meningococcal Vaccine Aged Out No bambi michelle eligible based on patient's age to complete this topic Pneumococcal Vaccine: Pediatrics (0 to 5 Years) and At-Risk Patients (6 to 49) Years) Aged Out No longer eligible b ased on patient's age to complete this topic RSV under 20 months Aged Out No longe r eligible based on patient's age to complete this topic Rotavirus Vaccines Aged Out No longer eligible based on patient's age to complete this topic Procedures Procedure Name Priority Date/Time Associated Diagnosis Comments 18 MO RESTORATIVE - RESIN-BASED COMPOSITE RESTORATIONS - DIRECT - RESIN-BASED COMPOSITE - TWO SURFACES, POSTERIOR Routine 03/06/2024 8:00 AM EST HEPATITIS C AB W/REFL TO HCV RNA, QN, PCR Routine 01/22/2024 9:13 AM EDT Other specified hypothyroidism HIV 1/2 ANTIGEN/ANTIBODY, FOURTH GENERATION W/RFL Routine 01/22/2024 9:13 AM EDT Other specified hypothyroidism Full PROPHYLAXIS - ADULT Routine 12/26/2023 10:00 AM EDT BITEWINGS - 4 RADIOGRAPHIC IMAGES Routine 12/26/2023 10:00 AM EDT PERIODIC ORAL EVALUATION - ESTABLISHED PATIENT Routine 12/26/2023 10:00 AM EDT HM PAP/HPV Routine 09/21/2022 DIAGNOSTIC - DIAGNOSTIC IMAGING - INTRAORAL - COMPREHENSIVE SERIES OF RADIOGRAPHIC IMAGES Routine 05/21/2022 10:00 AM EST from Last 3 Months or Most Recently Relevant to Health Maintenance Results * Hepatitis C Antibody with Reflex to HCV, RNA, Quantitative, Real-Time PCR (01/22/2024 9:13 AM EDT) Hepatitis C Antibody Nonreactive Nonreactive [facility] Comment:Antibodies to HCV no t detected; does not exclude early acuteHCV infection. Blood Venous blood specimen / Unknown 01/22/2024 9:13 AM EDT 01/22/2024 2:37 PM EDT us Trina Fang MD LAB BLOOD ORDERABLES Final Result [facility] [address] [place] [address] [phone] * HIV-1/2 Antigen and Antibodies, Fourth Generation, with Reflexes (01/22/2024 9:13 AM EDT) HIV AB/AG Nonreactive Nonreactive [facility] Comment:HIV-1 p24 Ag and/or HIV-1/HIV-2 Ab not detected.A test result that is nonreactive does not exclude thepossibility of exposure to or infection with HIV-1 and/orHIV-2. Nonreactive results in this assay for individualswith prior exposure to HIV-1 and/or HIV-2 may be due toantigen and antibody levels that are below the limit ofdetection of this assay.The [employer] HIV Ag/Ab Combo assay result andsupplemental assay results should be interpreted inconjunction with the patient's clinical presentation,history and other laboratory results. If the results areinconsistent with clinical evidence, additional testing issuggested to confirm the result. Blood Venous blood specimen / Unknown 01/22/2024 9:13 AM EDT 01/22/2024 2:37 PM EDT Trina Fang MD LAB BLOOD ORDERABLES Final Result [facility] [address] [place] [address] [phone] * Hm Pap Smear (09/21/2022) Pap Negative for intraephithelial lesion or malignancy Negative for intraephithelial lesion or malignancy, Other HPV Undetected Undetected, Indeterminate, Quantitative, Not Detected Rosalia Provider HEALTH MAINTENANCE Final Result from Last 3 Months or Most Recently Relevant to Health Maintenance Insurance [facility] C3 Care Teams Seismograph Shooter Relationship Specialty Start Date End Date Trina Fang MD [address] [place] [address] FE [id number] PCP - General Internal Medicine 04/18/17
--- OUTSIDE RECORDS SUMMARY | 2024-05-28 08:16 | XMS_ITS | Encounter Summary ---
Author Organization [employer] Address [address] [place] [address] 7 [place] [address] Care Team Providers Care Metalworker Name Role Phone Trina Fang MD Primary Care Provider [phone] Reason for Visit * Reason Onset Date Comments reschedule appt 01/30/2024 Encounter Details Date Type Department Care Team ([facility] st Contact Info) Description 01/30/2024 Telephone [facility] [address] [place] [address] Julito Ortiz [address] [place] [address] reschedule appt Social History Tobacco Use Types Packs/Day Years [...] encounter Miscellaneous Notes * Telephone Encounter - Yenni Oscar - 01/30/2024 8:03 AM EDT Patient called in stating that daughter has a fever and is on the way to the clinic to have billy seen. She would like to reschedule appt. Please reach out to patient for rescheduling DR documented in this encounter Plan of Treatment Not on file documented as of this encounter Visit Diagnoses Not on filedocumented in this encounter Additional Health Concerns Assessment Noted Time PHQ-9 Depression Total Score: 4 01/21/20 24 1:31 PM EDT documented as of this encounter Care Teams Metalworker Relationship Specialty Start Date End Date Trina Fang MD [address] [place] [id number] PCP - General Internal Medicine 04/18/17 documented as of this encounter
--- OUTSIDE RECORDS SUMMARY | 2024-05-28 08:16 | XMS_ITS | Encounter Summary ---
Author Organization [employer] Address [address] [facility] 7 [place] [address] Care Team Providers Care Analytical Lead Name Role Phone Trina Fang MD Primary Care Provider [phone] Reason for Visit * Reason Onset Date Comments Results 01/29/2024 Encounter Details Date Type Department Care Team (Late st Contact Info) Description 01/29/2024 Telephone [facility] [address] [place] [address] Trina Fang MD [address] [place], [place] [phone] Results Social History Tobacco Use Types Packs/Day Years [...] * Telephone Encounter - Ni Interiano - 01/29/2024 8:27 AM EDT Tc from pt requesting lab results. Please contact at [phone] Azeri documented in this encounter Plan of Treatment Not on file documented as of this encounter Visit Diagnoses Not on filedocumented in this encounter Additional Health Concerns Assessment Noted Time PHQ-9 Depression Total Score: 4 01/21/20 24 1:31 PM EDT documented as of this encounter Care Teams Analytical Lead Relationship Specialty Start Date End Date Trina Fang MD [address] [place] [id number] PCP - General Internal Medicine 04/18/17 documented as of this encounter
--- OUTSIDE RECORDS SUMMARY | 2024-05-28 08:17 | XMS_ITS | Encounter Summary ---
Author Organization [employer] Address [address] [facility] [address] [place] [address] Care Team Providers Care Supplier Manager Name Role Phone Trina Fang MD Primary Care Provider [phone] Reason for Visit * Reason Comments Med Refill Encounter Details Date Type Department Care Team ([facility] Contact Info) Description 05/26/2024 Refill [facility] [address] [place] [address] BarneyJasper Condon MD [address] [place] [address] Social History Tobacco Use Types Packs/Day Years [...] AM EDT documented as of this encounter Plan of Treatment Not on file documented as of this encounter Visit Diagnoses Not on filedocumented in this encounter Additional Health Concerns Assessment Noted Time PHQ-9 Depression Total Score: 4 01/21/20 24 1:31 PM EDT documented as of this encounter Care Teams Supplier Manager Relationship Specialty Start Date End Date Trina Fang MD [address] [place] [id number] PCP - General Internal Medicine 04/18/17 documented as of this encounter
--- OUTSIDE RECORDS SUMMARY | 2024-05-28 08:17 | XMS_ITS | Encounter Summary ---
Author Organization [facility] and [facility] Address [address] [place] [address] Care Team Providers Care Cloud Administrator Name Role Phone Ruddy Logan MD Primary Care Prov ider Reason for Referral * Physical Medicine (Routine) - Closed Specialty Diagnoses / Procedures Referred By Contac t Referred To Contact Rehabilitation Diagnoses Backache, unspecified Jade Aguillon MD Phone: tel: - [phone] fax: [facility] [address] Phone: tel: fax: Referral ID Status Reason Start Date Expiration Date V isits Requested Visits Authorized [id number] Closed Specialty Services Required 01/05/2014 01/05/2015 1 1 Encounter Details Date Type Department Care Team (Latest Contact Info) Description 01/05/2014 Transcribed Orders [address] [address] Jade Aguillon MD [address] [place] [phone] (Work) Backache, unspecified (Primary Dx) Social History Tobacco Use Types Packs/Day Years Used Date Smoking Tobacco: Never Alcohol Use Standard Drinks/Week Comments No 0 (1 standard drink = 0.6 oz pur e alcohol) Comments Unknown Sex and Gender Information Value Date Recorded Sex Assigned at Not on file Legal Sex Female 9:45 AM EST Gender Identity Not on file Sexual Orientation Not on file documented as of this encounter Plan of Treatment Scheduled Referrals Name Type Priority Associated Diagnoses Orde r Schedule Ambulatory referral to Rehab Services (PT/OT) Outpatient Referral Routine Backache, unspecified Ordered: 01/05/2014 documented as of this encounter Visit Diagnoses Diagnosis Backache, unspecified- Primary documented in this encounter Care Teams Cloud Administrator Relationship Specialty Start Date End Date Ruddy Logan MD [address] [place] [address] PCP - General 03/03/20 documented as of this encounter
--- OUTSIDE RECORDS SUMMARY | 2024-05-28 08:17 | XMS_ITS | Encounter Summary ---
Author Organization [employer] Address [address] [place] [address] [address] [place] [address] Care Team Providers Care Roll Icer Machine Name Role Phone Trina Fagn MD Primary Care Provider [phone] Encounter Details Date Type Department Care Team (Latest Contact Info) Description 09/08/2018 Abstract [facility] CONVERSIONS Dental, Provider, DDS Social History Tobacco Use Types Packs/Day Years Used Date Smoking Tobacco: Never Assessed Comments Unknown Sex and Gender Information Value Date Recorded Sex Assigned at Female 02/19/2022 10:28 AM EDT Legal Sex Female 10:28 AM EDT Gender Identity Female 02/19/2022 10:28 AM EDT Sexual Orientation Straight 02/19/2022 10 :28 AM EDT documented as of this encounter Plan of Treatment Not on file documented as of this encounter Visit Diagnoses Not on filedocumented in this encounter Care Teams Roll Icer Machine Relationship Specialty Start Date End Date Trina Fang MD [address] [place] [address] PCP - General Internal Medicine 04/18/17 documented as of this encounter
[2024-05-28] MEDS: Lactated Ringers 1,000 ML 100 ML IVCONT (09:23)
--- NOTE | 2024-05-28 09:40 | HO.ANESPROP2 ---
Documented by User: Rhoda Miranda NP 05/27/24 09:20 HPI - Anesthesia Eval Consult details Narrative: 33yo F for Cholecystectomy Laparoscopic, possible open PMFSH Active Problems Active Problems: All Active Problems Recurrent biliary colic (Acute) Varicose veins of right lower extremity with inflammation (Acute) Past Medical History Medical History (Updated 05/28/24 @ 08:59 by Airam Langley RN) Psoriasis Hypothyroid Surgical History Surgical History (Updated 05/28/24 @ 08:58 by Airam Langley RN) H/O abdominoplasty H/O tubal ligation (~2019) Social History Social History Patient Tobacco Use Status: Never used Tobacco Use of substances other than those prescribed or required for medical reasons: No Are you DNR?: No Advance Directives: No Advance Directives Information Provided: Yes Recently lost weight without trying: No Nutrition Risks: No Nutritional Risk Patient : No Meds Allergies Allergy/AdvReac Type Severity Reaction Status Date / Time Penicillins AdvReac Swelling Verified 04/13/24 13:52 Home Medications ?Medication ?Instructions ?Recorded ?Confirmed ?Last Taken ?Type levothyroxine 13 mcg capsule 13 mcg PO DAILY 11/15/22 04/13/24 Unknown History Exam Height,Weight and Vital Signs: Height 5 ft 4 in Weight 68.946 kg Pertinent Lab Results Pertinent Lab Results: Laboratory Tests 04/06/24 18:45 WBC 5.5 Hgb 13.1 Hct 38.9 Plt Count 175 Sodium 140 Potassium 3.8 Chloride 108 Carbon Dioxide 25 BUN 12 Creatinine 0.93 Assessment and Plan Assessment Anesthesia Assessment: Chart Reviewed Documented by User: Ciera Salguero DO 05/28/24 09:45 PMFSH Past Medical History Medical History (Updated 05/28/24 @ 08:59 by Airam Langley RN) Psoriasis Hypothyroid Family History Family history of problems with anesthesia: No Surgical History Surgical History (Updated 05/28/24 @ 08:58 by Airam Langley RN) H/O abdominoplasty H/O tubal ligation (~2019) History of Problems with Anesthesia: No Social History Social History Patient Tobacco Use Status: Never used Tobacco Use of substances other than those prescribed or required for medical reasons: No Are you DNR?: No Advance Directives: No Advance Directives Information Provided: Yes Recently lost weight without trying: No Nutrition Risks: No Nutritional Risk Patient : No Meds Allergies Allergy/AdvReac Type Severity Reaction Status Date / Time Penicillins AdvReac Swelling Verified 04/13/24 13:52 Home Medications ?Medication ?Instructions ?Recorded ?Confirmed ?Last Taken ?Type levothyroxine 13 mcg capsule 13 mcg PO DAILY 11/15/22 04/13/24 Unknown History Exam Exam Date and Time: 05/28/24 0940 Height,Weight and Vital Signs: Height 5 ft 4 in Weight 68.946 kg Vital Signs Temperature 97.8 F 05/28/24 09:10 Pulse Rate 62 05/28/24 09:10 Respiratory Rate 16 05/28/24 09:10 Blood Pressure 117/85 05/28/24 09:10 Pulse Oximetry 99 05/28/24 09:10 Oxygen Delivery Method Room Air 05/28/24 09:10 Temperature 97.8 F 05/28/24 09:10 Pulse Rate 62 05/28/24 09:10 Respiratory Rate 16 05/28/24 09:10 Blood Pressure 117/85 05/28/24 09:10 Pulse Oximetry 99 05/28/24 09:10 Oxygen Delivery Method Room Air 05/28/24 09:10 Airway Mallampati Class: I TM Dist: >3cm Neck ROM: Full Loose/Missing/Broken Teeth: No (patient denies any loose or broken teeth) Heart: S1S2 Lungs: CTAB Assessment and Plan Assessment Anesthesia Assessment: Anesthesia Plan Discussed and Chart Reviewed Final Anesthetic Review Family History of Problems with Anesthesia: No History of Problems with Anesthesia: No NPO: Yes ASA Class: II Final Preanesthetic Review: No Changes in Pt Med Stat, Meds/Allgs Chart Reviewed, Consent Obtained/Reviewed and Anes Risks/Benef Reviewed Patient Risk: Low Procedure Risk: Intermediate Anesthetic Plan Anesthetic Plan: GA and Agree w/ Assess. and Plan Disposition: Standard PACU
[2024-05-28] MEDS: Clindamycin Phosphate/D5W 900 MG/50 ML PIGGYBACK 50 MG IV (11:05)
--- NOTE | 2024-05-28 12:49 | W.PM.OPN ---
Operative Note Operative Note Date of Service: 05/28/24 Narrative: Preoperative diagnosis: [] Symptomatic gallbladder Postop diagnosis: [] The same Procedure [] laparoscopic cholecystectomy Surgeon: [] Milton Job Putter Up And Ticket Preparer: [] Nisha Type of Anesthesia: [] General Indication for surgery: [] Patient was status post prior abdomino plasty. Very large Gallbladder with dense omental adhesions to it. Moderately intrahepatic gallbladder. Gallbladder with multiple multiple gallstones . Findings: [] Patient brought to the operating room, placed on operative table supine position, after an adequate level of general anesthesia was induced, the patient's abdomen was prepped and draped in usual sterile fashion. Using a supraumbilical curvilinear incision, along the prior abdominal plasty umbilical scar, Moreno technique was used to insufflate abdominal cavity to 15 mm of CO2. Upper midline and right subcostal ports were placed under direct laparoscopic view, and the patient placed in reverse Trendelenburg position, and tilted to the left. Findings were as noted above. Gallbladder was grasped using laparoscopic graspers and retracted superiorly and laterally. Dense omental adhesions were swept off the gallbladder and the hilum was approached. Common bile duct was identified and preserved throughout the procedure. Cystic artery and cystic duct were each identified, circumferentially skeletonized, traced directly into the gallbladder, and critical view obtained. Each was clipped proximally x2, distally x1, and transected . The gallbladder which was moderately intrahepatic was then cauterized from the gallbladder fossa using Bovie. Specimen was placed in an Endo-Catch bag, and retrieved through the umbilical port. Abdominal cavity was copiously irrigated and secured hemostasis. All ports removed under direct laparoscopic view. Wounds were closed in the following manner; umbilical wound is fascia reapproximated using interrupted 0 Vicryl sutures. Skin wounds were closed using subcuticular 4-0 Vicryl sutures followed by Steri-Strips and sterile dressings. Wounds were infiltrated 0.5% Marcaine at completion. Sponge, needle, and instrument counts reported correct. Patient tolerated the procedure well and emerged from anesthesia stable condition. EBL minimal
[2024-05-28] MEDS: fentaNYL citrate/PF 100 MCG/2 ML VIAL 50 MCG IVPUSH (13:39)
== END 2024-05-28 14:55 | disposition home or self-care (01) ==
PROVIDERS: PCP Internal Medicine; Visit Provider Surgery
PROC: 0FT44ZZ Resection of Gallbladder, Percutaneous Endoscopic Approach (ICD-10-PCS; CPT 47562; principal; 2024-05-28 11:00)
DX: K80.10 Calculus of gallbladder with chronic cholecystitis without obstruction (principal); K82.8 Other specified diseases of gallbladder; Q44.1 Other congenital malformations of gallbladder; E03.9 Hypothyroidism, unspecified; Z79.899 Other long term (current) drug therapy; Z88.0 Allergy status to penicillin; Z98.51 Tubal ligation status
CPT/HCPCS: 47562; 88304; J0736; J1100; J2003; J2250; J2405; J2704; J2795; J3010

== ENCOUNTER → 2024-05-28 08:12 | Outpatient (BNV) | payer MEDICAID, SELFPAY | PROVIDERS: PCP Internal Medicine; Visit Provider Surgery | DX: K80.50 Calculus of bile duct without cholangitis or cholecystitis without obstruction (principal) | CPT/HCPCS: 47562 ==

== ENCOUNTER 2024-06-09 09:58 | Outpatient (AMB) | payer MEDICAID, SELFPAY ==
--- NOTE | 2024-06-09 10:04 | MHC.OFFVIS ---
Intake Visit Reasons: S/P lap zay Intake Note: Patient here s/plaparoscopic cholecystectomy. Reports incision healing well. Patient c/o: no longer taking rx pain meds. Surgery: 05-28-2024 Information Systems Supervisor Required: No Accompanied by: Self / Same As Patient Allergies Penicillins Adverse Reaction (Verified 06/09/24 10:04) Swelling HPI Comments Details: Patient presents for follow-up. Status post laparoscopic cholecystectomy. She presents here with her significant other. She is doing well. She is tolerating a diet. Having regular bowel habits. He has increased her activity level. She has minimal incisional discomfort. She is occasionally constipated but is managing this. PFSH Medical History (Updated 05/28/24 @ 08:59 by Airam Langley RN) Psoriasis Hypothyroid Surgical History (Updated 06/09/24 @ 10:37 by Vitor Rose MD) Hx laparoscopic cholecystectomy (05/28/24) H/O abdominoplasty H/O tubal ligation (~2019) Social History Patient Tobacco Use Status: Never used Tobacco Physical Exam Eyes Other: Anicteric GI Other: Abdomen is soft. All wounds clean dry and intact healing well Assessment & Plan Assessment & Plan (1) Status post laparoscopic cholecystectomy: Code(s): Z90.49 - Acquired absence of other specified parts of digestive tract Category: Medical Plan Patient was been given local instructions and will otherwise follow-up p.r.n.. All questions answered. Coding Level of Care Code Global (99235) Diagnoses Status post laparoscopic cholecystectomy Z90.49
--- OUTSIDE RECORDS SUMMARY | 2024-06-09 10:47 | XMS_ITS | Encounter Summary ---
Author Organization [employer] Address [address] [place] [address] [address] [place] [address] Care Team Providers Care Real Estate Firm Manager Name Role Phone Trina Fang MD Primary Care Provider [phone] Encounter Details Date Type Department Care Team (Latest Contact Info) Description 09/08/2018 Abstract [facility] CONVERSIONS Dental, Provider, DDS Social History Tobacco [...] on filedocumented in this encounter Care Teams Real Estate Firm Manager Relationship Specialty Start Date End Date Trina Fang MD [address] [place] [address] PCP - General Internal Medicine 04/18/17 documented as of this encounter
--- OUTSIDE RECORDS SUMMARY | 2024-06-09 10:47 | XMS_ITS | Encounter Summary ---
Author Organization [facility] and [facility] Address [address] [place] [address] Care Team Providers Care Business Continuity Manager Name Role Phone Ruddy Logan MD Primary Care Prov ider Reason for Referral * Physical Medicine (Routine) - Closed Specialty Diagnoses / Procedures Referred By Contac t Referred To Contact Rehabilitation Diagnoses Backache, unspecified Jade Aguillon MD Phone: tel: [phone] fax: [facility] [address] Phone: tel: fax: Referral ID Status Reason Start Date Expiration Date V isits Requested Visits Authorized [id number] Closed Specialty Services Required 01/05/2014 01/05/2015 1 1 Encounter Details Date Type Department Care Team (Latest Contact Info) Description 01/05/2014 Transcribed Orders [address] [address] Jade Aguillon MD [address] [place] [phone] (Work) Backache, unspecified (Primary [...] Primary documented in this encounter Care Teams Business Continuity Manager Relationship Specialty Start Date End Date Ruddy Logan MD [address] [place] [address] PCP - General 03/03/20 documented as of this encounter
--- OUTSIDE RECORDS SUMMARY | 2024-06-09 10:47 | XMS_ITS | Clinical Summary ---
Author Organization [employer] Address [address] [place] [address] Care Team Providers Care Video Systems Engineer Name Role Phone Trina Fang MD Primary Care Provider [phone] Allergies Active Allergy Reactions Criticality Noted Date [...] 2 times daily. 60 g 1 4 025 Active triamcinolone (Kenalog) 0.1 % creamIndicatio ns:Psoriasis APPLY TO THE AFFECTED AREA(S) TWICE DAILY IN THE MORNING AND AT BEDTIME FOR PAIN AND FOR SWELLING 30 g 2 4 Active betamethasone valerate (Valisone) 0.1 % ointmentIndica tions:Psoriasi s Apply topically if needed in the morning and at bedtime (dryness). 45 g 2 4 Active HYDROcodone-ac etaminophen ([place]) 5-325 MG tablet Take 1 tablet by mouth Every 4-6 hours as needed for severe pain. 5 025 Active Problems Problem Noted Date Diagnosed Date Acute pain of right knee 11/08/2022 Assessment & Plan (11/08/2022 10:01 AM EDT): Apply ice elevate knee and rest Hypothyroid 08/07/2022 Encounters Date Type Department Care Team Description 06/04/2024 Telephone [facility] MEDICINE [address] [place] [address] Trina Fang MD Follow-up 05/26/2024 Refill [facility]EDS [address] [place] [address] Jasper Alvarez MD 04/07/2024 10:30 AM EST Office Visit [facility] MED & PEDS [address] [place] [address] Trina Fang MD Psoriasis (Primary Dx) 04/07/2024 Travel 03/26/2024 Refill [facility] [address] [place] [address] Trina Fang MD Psoriasis from Last 3 Months Immunizations Name Administration Dates Next Due HPV, Quadrivalent 11/12/2013,10/09/2013,03/04/20 13 Hep B, adult 10/18/2016,03/24/2015,02/15/2015 Influenza injectable quadriv alent preservative free 02/10/2015 Tdap 06/10/2018,10/04/2015,02/15/2015 Varicella 03/24/2015,02/15/2015 Social History Tobacco Use Types Packs/Day Years [...] is your housing situation today? I have kimberlygloria lopez 01/14/[address] you [...] Procedure Name Priority Date/Time Associated Diagnosis Comments GROSS AND MICROSCOPIC LEVEL 3 Routine 05/28/2024 12:02 PM EST HEPATITIS C AB W/REFL TO HCV [...] 10:00 AM EDT HM PAP/HPV Routine 09/21/2022 INTRAORAL - COMPLETE SERIES OF RADIOGRAPHIC IMAGES Routine 05/21/2022 10:00 AM EST from Last 3 Months or Most Recently Relevant to Health Maintenance Results * Gross and Microscopic Level 3 (05/28/2024 12:02 PM EST) 05/28/2024 12:0 2 PM EST 05/28/2024 1:01 PM EST [facility] - 05/29/2024 12:17 PM EST ----- ------- Name: Dominique Burger ? Age/Sex: 33/F ? : 1990 Unit#: [id number] ?? Attend Dr: Vitor Rose MD ?Re05/28/24 ?Status: DEP SDC ? Location: HO.SSS ?Disch: ? ----- ------- SPEC : [id number] ?RECD: 05/28/24-1 ? STATUS: ??SOUT ? REQ NUM: [id number] ? DONNELL: 05/28/24-1202 ? SUBM DR: Vitor Rose MD ? ENTERED: ??05/28/24-1188 ?SP TYPE: Surgical ? OTHR DR: Trina Fang MD ? ORDERED: ??Gross Micro L3 ? Diagnosis ?? Gallbladder, cholecystectomy: ??Chronic cholecystitis; cholelithiasis; one reactive lymph ?? node. ?Clinical History Calculus of bile duct ?Microscopic Description Microscopic sections reviewed. ? Material Received ?? Gallbladder ? Gross Description Received in formalin labeled ?gallbladder? is a 10.0 x 3.0 x 3.0 cm intact, smooth and shaggy, montanez-pink and purple-maroon gallbladder resected in continuity with 0.4 cm of cauterized montanez-brown cystic duct. ??Upon opening the gallbladder contains copious green-brown bile and multiple multifaceted hard black choleliths ranging from 0.4-1.0 cm in greatest dimension which extend into the neck of the gallbladder and cystic duct. ??The mucosa is finely reticulated, velvety, edematous, congested and hemorrhagic montanez-pink and red-maroon. On sectioning the wall is edematous, focally congested and hemorrhagic, montanez-pink and red- maroon measuring 0.2 cm in thickness. ??A 0.8 cm pink-red cystic duct lymph node is identified. ??Press Offbearer sections are submitted in cassettes A1 and A2 to include the margin of resection submitted in cassette A1 and the lymph node bisected and entirely submitted in cassette A2. CEDS Copies To: ?? Trina Fang MD ?? [facility] ?? [address] ?? [place] [address] ?? [phone] ?? Vitor Rose MD ?? [facility] ?? [address] ?? [place] [address] ? CONTINUED ON NEXT PAGE ----- ------- Name: Dominique Burger ? Age/Sex: 33/F ? : 1990 Unit#: [id number] ?? Attend Dr: Vitor Rose MD ?Re05/28/24 ?Status: DEP SDC ? Location: HO.SSS ?Disch: ? ----- ------- SPEC : [id number] ?RECD: 05/28/24-1 ? STATUS: ??SOUT ? REQ NUM: [id number] ? DONNELL: 05/28/24-1202 ? SUBM DR: Vitor Rose MD ? ENTERED: ??05/28/24-0801 ?SP TYPE: Surgical ? OTHR : Trina Fang MD ? ORDERED: ??Gross Micro L3 ? Copies To: ??(Continued) ?? [phone] ?? [email or web address] ----- ------- Signed (signature on file) Abel Ruiz MD 05/29/241216 ? ----- ------- ? END OF REPORT ? us Generic External Data Provider LAB CYTOLOGY ORDE RABLES Final Result [facility] [address] [place] [address] [phone] * Hepatitis C Antibody with Reflex to HCV, RNA, Quantitative, Real-Time PCR (01/22/2024 9:13 AM EDT) Hepatitis C Antibody Nonreactive Nonreactive [facility] Comment:Antibodies to HCV no t detected; does not exclude early acuteHCV infection. Blood Venous blood specimen / Unknown 01/22/2024 9:13 AM EDT 01/22/2024 2:37 PM EDT us Trina Fang MD LAB BLOOD ORDERABLES Final Result Performing Organization Address [facility]/ZIP Co de Phone Number [facility] [address] [place] [address] [phone] * HIV-1/2 Antigen and Antibodies, Fourth Generation, with Reflexes (01/22/2024 9:13 AM EDT) HIV AB/AG Nonreactive Nonreactive [facility] Comment:HIV-1 p24 Ag and/or HIV-1/HIV-2 Ab not detected.A test result that is nonreactive does not exclude thepossibility of exposure to or infection with HIV-1 and/orHIV-2. Nonreactive results in this assay for individualswith prior exposure to HIV-1 and/or HIV-2 may be due toantigen and antibody levels that are below the limit ofdetection of this assay.The [employer] HIV Ag/Ab Combo assay result andsupplemental assay results should be interpreted inconjunction with the patient's clinical presentation,history and other laboratory results. If the results areinconsistent with clinical evidence, additional testing issuggested to confirm the result. Blood Venous blood specimen / Unknown 01/22/2024 9:13 AM EDT 01/22/2024 2:37 PM EDT us Trina Fang MD LAB BLOOD ORDERABLES Final Result Performing Organization Address [facility]/ZIP Co de Phone Number [facility] [address] [place] [address] [phone] * Hm Pap Smear (09/21/2022) Pap Negative for intraephithelial lesion or malignancy Negative for intraephithelial lesion or malignancy, Other HPV Undetected Undetected, Indeterminate, Quantitative, Not Detected us Historical Provider HEALTH MAINTENANCE Final Result from Last 3 Months or Most Recently Relevant to Health Maintenance Insurance [employer] Care Teams Video Systems Engineer Relationship Specialty Start Date End Date Trina Fang MD [address] [place] [address] PCP - General Internal Medicine 04/18/17
--- OUTSIDE RECORDS SUMMARY | 2024-06-09 10:47 | XMS_ITS | Encounter Summary ---
Author Organization [employer] Address [address] [facility] 7 [place] [address] Care Team Providers Care Entry Clerk Name Role Phone Trina Fang MD Primary Care Provider [phone] Reason for Visit * Reason Comments Med Refill Encounter Details Date Type Department Care Team ([facility] Contact Info) Description 05/26/2024 Refill [facility] [address] [place] [address] BarneyJasper Condon MD [address] [place] [address] Social History Tobacco Use Types Packs/Day Years [...] documented as of this encounter Care Teams Entry Clerk Relationship Specialty Start Date End Date Trina Fang MD [address] [place] [address] PCP - General Internal Medicine 04/18/17 documented as of this encounter
--- OUTSIDE RECORDS SUMMARY | 2024-06-09 10:47 | XMS_ITS | Clinical Summary ---
Author Organization [address] Address [address] [place] [address], [place] [address] Care Team Providers Care Real Estate Services Coordinator Name Role Phone Ruddy Logan MD Primary [...] or Tdap in outside records received from [employer] Thyromegaly 08/19/2014 Overview (09/16/2014): Normal TSH and [...] age to complete this topic Pneumococcal Vaccine (2 - 49 years) Aged Out No longer eligible b ased [...] old. For additional information please refer to http://education.[employer]/faq/JUU622 (This link is being provided for informational/ educational purposes only.) 09/14/2014 11:3 4 AM EDT 09/14/2014 11:34 AM EDT Narrative Resulting Agency Comment Performing Organization Information: ?Site ID: [id number] ?Name: [facility] ?Address: [address] [place] [address], [facility] [place] [address] ?Director: Laura Puga MD Edel Hymanel [facility] LAB BLOOD ORDERABLES Final Re sult Performing Organization Address [facility] Co de Phone Number [facility] [address] [place] [address] * Hepatitis C antibody (09/14/2014 11:34 AM EDT) Hepatitis C Ab NON-REACTI VE NON-REACTI VE [facility] Signal To Cut-Off 0.02 <1.00 [facility] Blood specimen (specimen) 09/14/2014 11:34 AM EDT 09/14/2014 11:34 AM EDT Narrative Resulting Agency Comment Performing Organization Information: ?Site ID: [id number] ?Name: [facility] ?Address: [address] [place] [address], [place] [address] ?Director: Laura Puga MD Edel Hymanel [facility] LAB BLOOD ORDERABLES Final Re sult Performing Organization Address [facility] de Phone Number [facility] [address] [place] [address] * Thinprep TIS PAP (Q) (09/09/2014 4:23 PM EDT) Pathologist [facility] Clinical Information NONE GIVEN [facility] Lmp: [...] has been evaluated with computer assisted technology. Spud Sorter: [facility] Comment:MXD, CT (ASCP) Specimen of unknown material (specimen) 09/09/2014 4:23 PM EDT 09/10/2014 8:59 AM EDT Narrative Resulting Agency Comment Performing Organization Information: ?Site ID: [id number] ?Name: [employer] ?Address: [address] [place] [address], [place] [address] ?Director: Laura Puga MD Edel Gooden CNM BODY FLUIDS AND STOOLS ORDERA BLES Final Result Performing Organization Address City/State/[facility] Co de Phone Number [facility] [address] [place] [address] from Last 3 Months or Most Recently Relevant to Health Maintenance Insurance [place] Care Teams Real Estate Services Coordinator Relationship Specialty Start Date End Date Ruddy Logan MD [address] [place] [address] PCP - General 03/03/20
--- OUTSIDE RECORDS SUMMARY | 2024-06-09 10:47 | XMS_ITS | Encounter Summary ---
Author Organization [employer] Address [address] [facility] 7 [place] [address] Care Team Providers Care Public Speaking Teacher Name Role Phone Trina Fang MD Primary Care Provider [phone] Reason for Visit * Reason Onset Date Comments Follow-up 06/04/2024 Encounter Details Date Type Department Care Team ([facility] st Contact Info) Description 06/04/2024 Telephone [facility] [address] [place] [address] Trina Fang MD [address] [place], [place] [id number] Follow-up Social History Tobacco Use Types Packs/Day Years [...] encounter Miscellaneous Notes * Telephone Encounter - Brenda Last RN - 06/04/2024 10:48 AM EST TC to pt to status check after pt no show to [facility] appt for status post choly. No answer, LVM to return call to office and ask for [facility] nurses. * Telephone Encounter - Brenda Last RN - 06/04/2024 10:48 AM EST ----- Message from Trina Fang MD sent at 06/03/2024 8:54 PM EST ----- ----- Message ----- From: Roselyn Griffin PharmD Sent: 06/01/2024 11:33 AM EST To: Trina Fang MD Please see Pharmacy Pre-Visit [facility] for provider appointment on 06/02/24 documented in this encounter Plan of Treatment Not on file documented as of this encounter Visit Diagnoses Not on filedocumented in this encounter Additional Health Concerns Assessment Noted Time PHQ-9 Depression Total Score: 4 01/21/20 24 1:31 PM EDT documented as of this encounter Care Teams Public Speaking Teacher Relationship Specialty Start Date End Date Trina Fang MD [address] [place] [id number] PCP - General Internal Medicine 04/18/17 documented as of this encounter
--- OUTSIDE RECORDS SUMMARY | 2024-06-09 10:47 | XMS_ITS | Encounter Summary ---
Author Organization [employer] Address [address] [place] [address] 7 [place] [address] Care Team Providers Care Ward Aide Name Role Phone Trina Fang MD Primary Care Provider [phone] Reason for Visit * Reason Onset Date Comments reschedule appt 01/30/2024 Encounter Details Date Type Department Care Team ([facility] st Contact Info) Description 01/30/2024 Telephone [facility] [address] [place] [address] Julito Ortiz [address] [place] [address] reschedule appt Social History Tobacco Use Types [...] documented as of this encounter Care Teams Ward Aide Relationship Specialty Start Date End Date Trina Fang MD [address] [place] [id number] PCP - General Internal Medicine 04/18/17 documented as of this encounter
== END 2024-06-09 10:38 | disposition home or self-care (01) ==
PROVIDERS: PCP Internal Medicine; Visit Provider Surgery
DX: Z90.49 Acquired absence of other specified parts of digestive tract (principal)
CPT/HCPCS: 99024

== ENCOUNTER → 2024-06-09 09:58 | Outpatient (BNVA) | payer MEDICAID, SELFPAY | PROVIDERS: PCP Internal Medicine; Visit Provider Surgery | DX: Z09 Encounter for follow-up examination after completed treatment for conditions other than malignant neoplasm (principal); Z90.49 Acquired absence of other specified parts of digestive tract | CPT/HCPCS: 99212 ==

== ENCOUNTER 2024-09-24 10:52 | Outpatient (AMB) | payer MEDICAID, SELFPAY ==
--- NOTE | 2024-09-24 11:00 | A.OFFVIS_ITS ---
Vital Signs 09/24/24 11:19 Height 5 ft 3 in Weight 156 lb 8 oz BMI 27.7 BP 121/79 Blood Pressure Location Lt brachial Position Sitting Pulse 65 Intake Visit Reasons: pain in surgery site/zay Intake Note: Patient is seen in office for pain in surgical site, post lap zay by Dr Rose on 05/28/24. Pt c/o: admits to RUQ pain for the past month, constipation Underwriting Manager Required: Yes Underwriting Manager Language: Switchboard Operator Supervisor Services: Underwriting Manager Present Underwriting Manager Name: Alexandra RANDALL Information Interpreted: non-clinical & clinical Mail Agent: Mail Agent Present Accompanied by: Self / Same As Patient Allergies Penicillins Adverse Reaction (Verified 06/09/24 10:04) Swelling HPI HPI pain in surgery site/zay: Details: Mental Health Aide used for evaluation. Patient reports that for the last month she has been experiencing intermittent stabbing right upper quadrant pain that comes on suddenly and lasts for a few hours. She also complains of constipation stating that she often goes a few days without a bowel movement, for which she uses a proven supplement to help facilitate bowel movements along with about 2 L of water per day. She denies any fever or chills, nausea vomiting, changes to color of skin. She is also concern for the incision sites which have raised red skin on it. PFSH Medical History Psoriasis Hypothyroid Surgical History Hx laparoscopic cholecystectomy (05/28/24) H/O abdominoplasty H/O tubal ligation (~2019) Social History Patient Tobacco Use Status: Never used Tobacco Review of Systems Const All systems reviewed & are unremarkable except as noted in HPI and below Physical Exam Const General: healthy appearing, comfortable and no acute distress Orientation/consciousness: patient oriented x3 Resp Effort & Inspection: normal respiratory effort and able to speak in complete sentences GI Other: Incision sites are intact, healing well right upper quadrant port sites have small keloid formation. No surrounding erythema. No palpable fluid collection Inspection: No distended Palpation (GI): Soft to palpation, not firm, Tenderness to palpation present (GI) in the RUQ (Mild tenderness to deep palpation), no guarding and not rigid Skin General skin exam: no jaundice Neuro General: patient oriented x3 Assessment & Plan Assessment & Plan (1) Status post laparoscopic cholecystectomy: Code(s): Z90.49 - Acquired absence of other specified parts of digestive tract Category: Surgical (2) Abdominal pain: Code(s): R10.9 - Unspecified abdominal pain Category: Medical Qualifiers: Abdominal location: right upper quadrant Qualified Code(s): R10.11 - Right upper quadrant pain (3) Constipation: Code(s): K59.00 - Constipation, unspecified Category: Medical Qualifiers: Constipation type: unspecified constipation type Qualified Code(s): K59.00 - Constipation, unspecified Plan 34-year-old female status post cholecystectomy on 05/28/2024 returning to the office for recurrent pain in the right upper quadrant for the past month. Patient describes the pain as intermittent, sharp stabbing pain that happens nearly every day. She is also experiencing constipation, reports infrequent bowel movements with dietary changes and adequate hydration. On exam her abdomen is soft and benign, there is tenderness to deep palpation in the right upper quadrant. I reassured her that this is a common postoperative symptom that will likely resolve on its own. We discussed a plan for returning in 1 month for follow-up, if pain is not improving will likely order imaging for other possible etiologies. I will send a prescription for MiraLax for the patient's constipation. Recommended that the patient use this daily until she is having regular bowel movements, then switching to every other day for maintenance. Recommended increasing dietary fiber and hydration as well. Incision sites appear to be healing well, with small keloid formation, reassured that this is normal and may resolve on its own, however there was no indication for intervention at this time. The patient will be scheduled for 1 month to follow up in the office. We discussed return precautions were would like to see her sooner including, fever, chills, nausea, vomiting, more frequent or increasing pain. Patient agreeable to plan Medications: New polyethylene glycol 3350 (Miralax) 17 grams PO DAILY 510 grams 0RF Coding Level of Care Code Est Pt Level 3 (99806) Diagnoses Status post laparoscopic cholecystectomy Z90.49 Right upper quadrant abdominal pain R10.11 Abdominal location: right upper quadrant Constipation, unspecified constipation type K59.00 Constipation type: unspecified constipation type
[2024-09-24 11:19] VITALS: BP 121/79; PULSE 65; BMI 27.7
--- OUTSIDE RECORDS SUMMARY | 2024-09-24 12:48 | XMS_ITS | Encounter Summary ---
Author Organization [employer] Address [address] [place] [address] 7 [place] [address] Care Team Providers Care Cash Management Clerk Name Role Phone Trina Fang MD Primary Care Provider [phone] Reason for Visit * Reason Comments Med Refill Encounter Details Date Type Department Care Team ([facility] st Contact Info) Description 07/28/2024 Refill [facility] MED [facility] PEDS [address] [place] [address] Trina Fang MD [address] [place] [address] Social History Tobacco Use Types Packs/Day Years [...] as of this encounter Plan of Treatment Upcoming Encounters Date Type Department Care Team ([facility] st Contact Info) Description 01/25/2025 11:00 AM EDT Office Visit [facility]ULT [facility] [address] [place] [address] Thi Cosby documented as of this encounter Visit Diagnoses Not on filedocumented in this encounter Additional Health Concerns Assessment Noted Time PHQ-9 Depression Total Score: 4 01/21/20 24 1:31 PM EDT documented as of this encounter Care Teams Cash Management Clerk Relationship Specialty Start Date End Date Trina Fang MD [address] [place] [address] PCP - General Internal Medicine 04/18/17 documented as of this encounter
== END 2024-09-24 11:22 | disposition home or self-care (01) ==
LOC: HO.HGS 10:53
PROVIDERS: PCP Internal Medicine
DX: Z90.49 Acquired absence of other specified parts of digestive tract (principal); R10.11 Right upper quadrant pain; K59.00 Constipation, unspecified
CPT/HCPCS: 99213

== ENCOUNTER → 2024-09-24 10:52 | Outpatient (BNVA) | payer MEDICAID, SELFPAY | PROVIDERS: PCP Internal Medicine | DX: R10.11 Right upper quadrant pain (principal); K59.00 Constipation, unspecified; Z90.49 Acquired absence of other specified parts of digestive tract | CPT/HCPCS: 99212 ==

== ENCOUNTER 2024-10-28 09:52 | Outpatient (AMB) | payer MEDICAID, SELFPAY ==
--- NOTE | 2024-10-28 09:55 | MHC.OFFVIS ---
Vital Signs 10/28/24 10:01 Height 5 ft 3 in Weight 157 lb BMI 27.8 BP 133/81 Blood Pressure Location Rt brachial Position Sitting Pulse 77 Intake Visit Reasons: one month f/up pain in surgery site/zay Intake Note: Patient is seen in office for one month follow up visit, post lap zay/pain in surgery site. Pt c/o: pain right under rib on Rt side. Scars feel lumpy that are tender at times. ([place]) Electric Furnace Operator Required: Yes Accompanied by: Self / Same As Patient Allergies Penicillins Adverse Reaction (Verified 10/28/24 10:01) Swelling HPI HPI one month f/up pain in surgery site/zay: Details: spanish medical interpreter used for this evaluation. Patient states she has overall doing well, continues to have intermittent right upper quadrant abdominal pain most days. She states she did use a laxative that we prescribe last month which helped to produce bowel movements but did give her headaches. She denies fever or chills, nausea, vomiting. Patient complaining of her incision site scars, they are raised and firm, she is wondering about options for getting rid of them for cosmetic reasons. PFSH Medical History Psoriasis Hypothyroid Surgical History Hx laparoscopic cholecystectomy (05/28/24) H/O abdominoplasty H/O tubal ligation (~2019) Social History Patient Tobacco Use Status: Never used Tobacco Review of Systems Const All systems reviewed & are unremarkable except as noted in HPI and below Physical Exam Vital Signs: Last Vital Signs Pulse 77 10/28/24 10:01 BP 133/81 10/28/24 10:01 BMI result Body Mass Index 27.8 Const General: healthy appearing, comfortable and no acute distress Orientation/consciousness: patient oriented x3 Resp Effort & Inspection: normal respiratory effort and able to speak in complete sentences GI Other: Small 1 cm keloid on the right upper quadrant and epigastric incision sites no palpable fluid collection, no surrounding erythema Inspection: No distended Palpation (GI): Soft to palpation, not firm, Tenderness to palpation present (GI) (mild RUQ), no guarding and not rigid Neuro General: patient oriented x3 Assessment & Plan Assessment & Plan (1) Abdominal pain: Comment: RUQ Code(s): R10.9 - Unspecified abdominal pain Category: Medical Qualifiers: Abdominal location: right upper quadrant Qualified Code(s): R10.11 - Right upper quadrant pain (2) Status post laparoscopic cholecystectomy: Code(s): Z90.49 - Acquired absence of other specified parts of digestive tract Category: Medical (3) Constipation: Code(s): K59.00 - Constipation, unspecified Category: Medical Qualifiers: Constipation type: unspecified constipation type Qualified Code(s): K59.00 - Constipation, unspecified Plan 34-year-old female status post laparoscopic cholecystectomy on 05/28/2024 returning to the office for continued right upper quadrant pain. Patient is still experiencing pain most days it is not related to anything that she can determine. Her appetite and bowel function are at baseline, use MiraLax which helped produce bowel movements, she has been more regular since. The MiraLax gave her headaches, I recommended increasing water intake when she requires taking laxative to produce a bowel movement. Patient understands. On exam the abdomen is relatively benign, it is soft there was mild tenderness in the right upper quadrant. And there is evidence of keloid formation at the epigastric and lateral a right upper quadrant port sites. Otherwise the incision sites appear to be healing well, no signs of infection. I recommended that she use warm compress and gentle massage of the area which may help soften the keloid and help it resolve. I will order a repeat CT with IV contrast of the patient's abdomen and pelvis to rule out a possible etiology for this continued pain patient will follow up in the office to review the results after the scan has been completed. Orders: Orders CT abdomen pelvis w IV con Today R10.11 - Right upper quadrant pain, Z90.49 - Acquired absence of other specified parts of digestive tract Coding Level of Care Code Est Pt Level 4 (57247) Diagnoses Right upper quadrant abdominal pain R10.11 Abdominal location: right upper quadrant Status post laparoscopic cholecystectomy Z90.49 Constipation, unspecified constipation type K59.00 Constipation type: unspecified constipation type Time Spent (min) 33
[2024-10-28 10:01] VITALS: BP 133/81; PULSE 77; BMI 27.8
--- OUTSIDE RECORDS SUMMARY | 2024-10-28 10:27 | XMS_ITS | Encounter Summary ---
Author Organization [employer] Address [address] [place] [address] 7 [place] [address] Care Team Providers Care Meat Team Member Name Role Phone Trina Fang MD Primary Care Provider [phone] Reason for Visit * Reason Comments Med Refill Encounter Details Date Type Department Care Team ([facility] st Contact Info) Description 07/28/2024 Refill [facility] CHC MED & PEDS [address] [place] [address] Trina Fang MD [address] [place] [address] Social History Tobacco Use Types Packs/Day Years [...] Upcoming Encounters Date Type Department Care Team ([facility] st Contact Info) Description 01/25/2025 11:00 AM EDT Office Visit [facility] ADULT D[facility] [address] [place] [address] Thi Cosby documented as of this encounter Visit Diagnoses Not on filedocumented in this encounter Additional Health Concerns Assessment Noted Time PHQ-9 Depression Total Score: 4 01/21/20 24 1:31 PM EDT documented as of this encounter Care Teams Meat Team Member Relationship Specialty Start Date End Date Trina Fang MD [address] [place] [address] PCP - General Internal Medicine 04/18/17 documented as of this encounter
== END 2024-10-28 10:16 | disposition home or self-care (01) ==
LOC: HO.HGS 09:53
PROVIDERS: PCP Internal Medicine
DX: R10.11 Right upper quadrant pain (principal); Z90.49 Acquired absence of other specified parts of digestive tract; K59.00 Constipation, unspecified
CPT/HCPCS: 99214

== ENCOUNTER → 2024-10-28 09:52 | Outpatient (BNVA) | payer MEDICAID, SELFPAY | PROVIDERS: PCP Internal Medicine | DX: R10.11 Right upper quadrant pain (principal); K59.00 Constipation, unspecified; Z90.49 Acquired absence of other specified parts of digestive tract; R51.9 Headache, unspecified | CPT/HCPCS: 99212 ==

== ENCOUNTER 2024-12-31 10:39 | Outpatient (REF) | payer MEDICAID, SELFPAY ==
--- NOTE | ~2024-12-31 | CT_ITS ---
EXAMINATION: CT ABDOMEN AND PELVIS WITH CONTRAST CLINICAL INFORMATION: Right upper quadrant pain COMPARISON: 04/06/2024 abdomen ultrasound TECHNIQUE: Multidetector volumetric images were obtained from the superior aspect of the liver through the pubic symphysis following administration 85 mL of Omnipaque 350 intravenous contrast. Sagittal and coronal reformatted images were obtained on the technologist's workstation. Oral contrast: Yes This CT examination was performed using dose optimization techniques as appropriate, variously including the following: *Automated exposure control *Adjustment of mA and/or kV according to patient size (this includes techniques or standardized protocols for targeted exams where dose is matched to indication/reason for exam; i.e. extremities or head) *Use of iterative reconstruction technique FINDINGS: LUNG BASES: The visualized lung bases are unremarkable. LIVER, GALLBLADDER, AND BILIARY TREE: The liver is normal in size, shape, and attenuation. No focal hepatic lesion or biliary ductal dilatation is present. The gallbladder is surgically absent. There are clips in the gallbladder fossa. There is no biliary duct dilation. PANCREAS: Unremarkable. SPLEEN: Unremarkable. ADRENAL GLANDS: Unremarkable. KIDNEYS AND URETERS: The kidneys are normal in size, shape, and attenuation. No hydronephrosis, hydroureter, or calculi seen. No perinephric stranding. BLADDER: Unremarkable. GASTROINTESTINAL TRACT: Moderate stool is present throughout the colon. Appendix. ABDOMINAL WALL: No significant hernia is appreciated. LYMPH NODES: Normal. VASCULAR: Unremarkable. PELVIC VISCERA: Uterus and ovaries are unremarkable. There is a hyperenhancing crenulated right ovarian cyst/follicle. OSSEOUS STRUCTURES: Degenerative endplate changes are noted in the inferior L4 and superior S1 There are also mild degenerative changes in the SI joints with subchondral cysts and sclerosis. CT/CT abdomen pelvis w IV con IMPRESSION: Unremarkable examination. Rupturing mature right ovarian follicle. Cholecystectomy. Mild degenerative changes involving bilateral SI joints and lower lumbar spine. Fleischner guidelines were followed. Electronically signed by: Tyrone Vargas MD 12/31/2024 01:43 PM EDT
[2024-12-31] MEDS: iohexoL 350 MG/ML 100 ML INFUS..BTL IV (13:31)
[2024-12-31] MEDS: Barium Sulfate Oral (Berry) 450 ML ORAL.SUSP 900 ML PO (13:32)
== END 2024-12-31 10:40 | disposition home or self-care (01) ==
LOC: HO.CT 10:39
PROVIDERS: PCP Internal Medicine
DX: R10.11 Right upper quadrant pain (principal); Z90.49 Acquired absence of other specified parts of digestive tract
CPT/HCPCS: 74177; Q9967

== ENCOUNTER → 2024-12-31 10:41 | Outpatient (BNV) | payer MEDICAID, SELFPAY | PROVIDERS: PCP Internal Medicine; Visit Provider Radiology Diagnostic Radiology | DX: R10.11 Right upper quadrant pain (principal) | CPT/HCPCS: 74177 ==

== ENCOUNTER 2025-01-12 10:50 | Outpatient (AMB) | payer MEDICAID, SELFPAY ==
--- NOTE | 2025-01-12 10:51 | MHC.OFFVIS ---
Vital Signs 01/12/25 10:55 Height 5 ft 3 in Weight 160 lb BMI 28.3 BP 119/58 L Blood Pressure Location Lt brachial Position Sitting Pulse 67 Intake Visit Reasons: s/p ct from 12/31/24 Intake Note: Patient here to discuss abdomen pelvis CT from 12-31-2024. Patient c/o:on and off abdominal pain. Hx: Lap zay w/Dr. Rose 05-28-2024 Cyber Security Instructor Required: Yes Information Interpreted: clinical only (Marielle RANDALL) Accompanied by: Self / Same As Patient Allergies Penicillins Adverse Reaction (Verified 01/12/25 10:55) Swelling HPI HPI s/p ct from 12/31/24: Details: In-house stationary engineer refrigeration [employer] used for this evaluation. Patient states that she does occasionally get some right upper quadrant pain but over the past few weeks has been noticing this less than less. She states her constipation has improved however she is not taking the medications that we prescribed because it gave her nausea. She has been making changes to her diet including the addition of papaya which has been helping her to have more regular bowel movements. She does not have any concerns, she is just here for her results of the CAT scan. PFSH Medical History Psoriasis Hypothyroid Surgical History Hx laparoscopic cholecystectomy (05/28/24) H/O abdominoplasty H/O tubal ligation (~2019) Social History Patient Tobacco Use Status: Never used Tobacco Review of Systems Const All systems reviewed & are unremarkable except as noted in HPI and below Physical Exam Vital Signs: Last Vital Signs Pulse 67 01/12/25 10:55 BP 119/58 L 01/12/25 10:55 BMI result Body Mass Index 28.3 Const General: comfortable and no acute distress Orientation/consciousness: patient oriented x3 Resp Effort & Inspection: normal respiratory effort and able to speak in complete sentences GI Inspection: Yes normal to inspection and Yes scar (Lap zay) Neuro General: patient oriented x3 Assessment & Plan Assessment & Plan (1) Status post laparoscopic cholecystectomy: Code(s): Z90.49 - Acquired absence of other specified parts of digestive tract Category: Surgical (2) Constipation: Code(s): K59.00 - Constipation, unspecified Category: Medical Qualifiers: Constipation type: unspecified constipation type Qualified Code(s): K59.00 - Constipation, unspecified (3) Abdominal pain: Comment: RUQ Code(s): R10.9 - Unspecified abdominal pain Category: Medical Qualifiers: Abdominal location: right upper quadrant Qualified Code(s): R10.11 - Right upper quadrant pain Plan 34-year-old female s/p laparoscopic cholecystectomy drain in the office for results a CAT scan due to recurrent right upper quadrant pain after cholecystectomy. Patient actually improving now still experiences occasional pain in the area but lays less than severity and now less frequent. Over the last few weeks she states it has gotten a lot better. I reviewed the results of the CAT scan in the images themselves which revealed no obvious etiology for her right upper quadrant pain, and given that this is improving now I do not think there was any further intervention that we need to do. In regards to her constipation it seems like her dietary changes have been helping her, I recommended she continue with this, recommendations include increasing hydration increasing fiber. We discussed her incision sites, had previously been concern for some raised areas, likely a keloid formation. At this point I recommended that she can do warm compresses and vitamin-E cream if these are cosmetically bothersome. She does not need any follow up at this point, she can return as needed with any questions or concerns Coding Level of Care Code Est Pt Level 3 (78455) Diagnoses Status post laparoscopic cholecystectomy Z90.49 Constipation, unspecified constipation type K59.00 Constipation type: unspecified constipation type Right upper quadrant abdominal pain R10.11 Abdominal location: right upper quadrant
[2025-01-12 10:55] VITALS: BP 119/58; PULSE 67; BMI 28.3
--- OUTSIDE RECORDS SUMMARY | 2025-01-12 13:20 | XMS_ITS | Clinical Summary ---
Author Organization [employer] Address [address] [facility] 7t [place] [address] Care Team Providers Care Cake Icer Name Role Phone Trina Fang MD Primary Care Provider [phone] Allergies Active Allergy Reactions Criticality Noted Date [...] by mouth at bed time. 2 Active medroxyPROGEST ERone (Depo-Provera) 400 MG/ML [...] Take 50 mcg by mouth. 3 Active triamcinolone (Kenalog) 0.1 % creamIndicatio ns:Psoriasis APPLY TO THE AFFECTED AREA(S) TWICE DAILY IN THE MORNING AND AT BEDTIME FOR PAIN AND FOR SWELLING 30 g 2 5 Active Sodium Fluoride 1.1 % cream [place] teeth for 2 minutes, morning and night. Spit, do not rinse. Do not eat or drink anything for 30 minutes following use. 112 g 3 5 Active acyclovir (Zovirax) 5 % creamIndicatio ns:Viral syndrome TO THE AFFECTED AREA(s) FIVE TIMES DAILY DIRECTED 5 g 3 5 Active betamethasone valerate (Valisone) 0.1 % ointmentIndica tions:Psoriasi s APPLY TO THE AFFECTED AREA(S) TWICE DAILY IN THE MORNING AND AT BEDTIME NEEDED 45 g 2 5 Active tacrolimus (Protopic) 0.1 % ointment APPLY TOPICALLY TO AFFECTED AREA(s) TWICE DAILY 60 g 1 5 Active Active Problems Problem Noted Date Diagnosed Date Acute pain of right knee 11/08/2022 Assessment & Plan (11/08/2022 10:01 AM EDT): Apply ice elevate knee and rest Hypothyroid 08/07/2022 Encounters Date Type Department Care Team Description 12/31/2024 Orders Only [facility] External Provider, [facility] 12/04/2024 Refill [facility] [address] [place] [address] Trina Fang MD Psoriasis from Last 3 Months Immunizations Immunization Administration Dates Next Due HPV, Quadrivalent 11/12/2013,10/09/2013,03/04/20 [...] Sign Reading Time Taken Comments Blood Pressure 128/88 09/08/2024 10:09 AM EDT Pulse 69 09/08/2024 10:09 AM EDT Temperature 36.5 C (97.7 F) 09/08/2024 10:09 AM EDT Respiratory Rate 18 09/08/2024 10:09 AM EDT Oxygen Saturation 99% 09/08/2024 10:09 AM EDT Inhaled Oxygen Concentration - - Weight 69.9 kg (154 lb) 09/08/2024 10:09 AM EDT Height 162.6 cm (5' 4 ) 09/08/2024 10:09 AM EDT Body Mass Index 26.43 09/08/2024 10:09 AM EDT Plan of Treatment Upcoming Encounters Date Type Department Care Team (Late st Contact Info) Description 02/03/2025 10:00 AM EDT Office Visit [facility] [address] [place] [address] Trina Fang MD [address] [place] [address] 02/05/2025 11:00 AM EDT Office Visit [facility] [address] [place] [address] [place] Fang Health Maintenance Due Date Last Done Comments Disability Screening 1991 Alcohol/Substance Use Screening 2003 Family Planning (PISQ) 07/22/2006 Hepatitis A Vaccines (1 of 2 - Risk 2-dose series) 07/22/2010 HPV Vaccines (3 - 3-dose series) 02/04/2014 11/12/2013, 10/09/2013, 03/04/2013 COVID-19 Vaccine ( season) 2024 11/08/2020, 10/18/2020 Influenza Vaccine (#1) 2024 02/10/2015 Dental X-Ray: Bitewings 12/26/2024 12/26/19, 05/21/2022, 05/21/2022 SDOH Screening 01/13/2025 01/14/2024 Depression Screening 01/20/2025 01/21/2024, 01/21/20 Dental Oral Exam 01/24/2025 07/24/2024, 08/2023, 05/21/2022 Dental Prophylaxis 01/24/2025 07/24/2024, 0 12/26/2023, 11/21/2022, Additional history exists Dental X-Ray: Full Mouth 05/22/2025 05/21/2022, 04/24 Tobacco Screening 09/08/2025 09/08/2024 Cervical Cancer Screening 09/22/2027 HPV/Cotest 09/22/2027 09/21/2022 Pap Smear 09/22/2027 09/21/2022 DTaP/Tdap/Td Vaccines (4 - Td or Tdap) 06/10/2028 06/10/2018, 10/04/2015, 02/15/2015 Zoster Vaccines (1 of 2) 07/22/2041 RSV Patients and Patients Aged 60 years or older (1 - 1-dose 75+ series) 07/22/2066 Hepatitis B Vaccines Completed 10/18/2016, 03/24/2015, 02/15/2015 HIV Screening Completed 01/22/2024 Hepatitis C Screening Completed 01/22/2024, 023 HIB Vaccines Aged Out No longer eligi ble based on patient's age to complete this topic IPV Vaccines Aged Out No longer eligi ble based on patient's age to complete this topic Meningococcal B Vaccine Aged Out No l onger eligible based on patient's age to complete this topic Meningococcal Vaccine Aged Out No bambi michelle eligible based on patient's age to complete this topic Pneumococcal Vaccine: Pediatrics (0 to 5 Years) and At-Risk Patients (6 to 49) Years Aged Out No longer eligible based on patient's age to complete this topic RSV under 20 months Aged Out No longe r eligible based on patient's age to complete this topic Rotavirus Vaccines Aged Out No longer eligible based on patient's age to complete this topic Procedures Procedure Name Priority Date/Time Associated Diagnosis Comments CT ABDOMEN PELVIS W CONTRAST Routine 12/31/2024 1:11 PM EDT Full PROPHYLAXIS - ADULT Routine 07/24/2024 10:00 AM EDT PERIODIC ORAL EVALUATION - ESTABLISHED PATIENT Routine 07/24/2024 10:00 AM EDT HEPATITIS C AB W/REFL TO HCV RNA, QN, PCR Routine 01/22/2024 9:13 AM EDT Other specified hypothyroidism HIV 1/2 ANTIGEN/ANTIBODY, FOURTH GENERATION W/RFL Routine 01/22/2024 9:13 AM EDT Other specified hypothyroidism BITEWINGS - 4 RADIOGRAPHIC IMAGES Routine 12/26/2023 10:00 AM EDT HM PAP/HPV Routine 09/21/2022 INTRAORAL - COMPLETE SERIES OF RADIOGRAPHIC IMAGES Routine 05/21/2022 10:00 AM EST from Last 3 Months or Most Recently Relevant to Health Maintenance Results * CT Abdomen Pelvis w/ Contrast (12/31/2024 1:11 PM EDT) Anatomical Region Laterality Modality Body, Pelvis, Abdomen Computed T omography 12/31/2024 1:11 PM EDT Narrative 12/31/2024 1:46 PM EDT [place] [address] [address] Scan Report Signed Patient: Dominique Burger MR#: [id number] [birth year] : 1990 Acct:[id number] Age/Sex: 34 / F ADM Date: 12/31/24 Loc: HO.CT Attending Dr: Minor Florentino PA-C Ordering Physician: Minor Florentino PA-C Date of Service: 12/31/24 Procedure(s): CT abdomen pelvis w IV con Accession Number(s): [id number] cc: Trina Fang MD; Minor Florentino PA-C Report Number: [id number]: Total DLP = 503.00 mGy-cm Reason for Exam: R10.11 - Right upper quadrant pain EXAMINATION: CT ABDOMEN AND PELVIS WITH CONTRAST CLINICAL INFORMATION: Right upper quadrant pain COMPARISON: 04/06/2024 abdomen ultrasound TECHNIQUE: Multidetector volumetric images were obtained from the superior aspect of the liver through the pubic symphysis following administration 85 mL of Omnipaque 350 intravenous contrast. Sagittal and coronal reformatted images were obtained on the technologist's workstation. Oral contrast: Yes This CT examination was performed using dose optimization techniques as appropriate, variously including the following: *Automated exposure control *Adjustment of mA and/or kV according to patient size (this includes techniques or standardized protocols for targeted exams where dose is matched to indication/reason for exam; i.e. extremities or head) *Use of iterative reconstruction technique FINDINGS: LUNG BASES: The visualized lung bases are unremarkable. LIVER, GALLBLADDER, AND BILIARY TREE: The liver is normal in size, shape, and attenuation. No focal hepatic lesion or biliary ductal dilatation is present. The gallbladder is surgically absent. There are clips in the gallbladder fossa. There is no biliary duct dilation. PANCREAS: Unremarkable. SPLEEN: Unremarkable. ADRENAL GLANDS: Unremarkable. KIDNEYS AND URETERS: The kidneys are normal in size, shape, and attenuation. No hydronephrosis, hydroureter, or calculi seen. No perinephric stranding. BLADDER: Unremarkable. GASTROINTESTINAL TRACT: Moderate stool is present throughout the colon. Appendix. ABDOMINAL WALL: No significant hernia is appreciated. LYMPH NODES: Normal. VASCULAR: Unremarkable. PELVIC VISCERA: Uterus and ovaries are unremarkable. There is a hyperenhancing crenulated right ovarian cyst/follicle. OSSEOUS STRUCTURES: Degenerative endplate changes are noted in the inferior L4 and superior S1 There are also mild degenerative changes in the SI joints with subchondral cysts and sclerosis. CT/CT abdomen pelvis w IV con IMPRESSION: Unremarkable examination. Rupturing mature right ovarian follicle. Cholecystectomy. Mild degenerative changes involving bilateral SI joints and lower lumbar spine. Fleischner guidelines were followed. Electronically signed by: Tyrone Vargas MD 12/31/2024 01:43 PM EDT RP Dictated By: Tyrone Vargas MD Signed By: <Electronically signed by Tyrone Vargas MD in OV> 12/31/24 1343 DD/ 1311 TD/TT: 12/31/24 1330 Harness Worker: Procedure Note Donotuseinterpreter, Image - 12/31/[address] [place] [address] [address] Scan Report Signed Patient: Dominique Burger#: [id number] 88 : 1990Acct:[id number] Age/Sex: 34 / FADM Date: 12/31/24 Loc: HO.CT Attending Dr: Minor Florentino PA-C Ordering Physician: Minor Florentino PA-C Date of Service: 12/31/24 Procedure(s): CT abdomen pelvis w IV con Accession Number(s): [id number] cc: rTina Fang MD; Minor Florentino PA-C Report Number: [id number]: Total DLP = 503.00 mGy-cm Reason for Exam: R10.11 - Right upper quadrant pain EXAMINATION: CT ABDOMEN AND PELVIS WITH CONTRAST CLINICAL INFORMATION: Right upper quadrant pain COMPARISON: 04/06/2024 abdomen ultrasound TECHNIQUE: Multidetector volumetric images were obtained from the superior aspect of the liver through the pubic symphysis following administration 85 mL of Omnipaque 350 intravenous contrast. Sagittal and coronal reformatted images were obtained on the technologist's workstation. Oral contrast: Yes This CT examination was performed using dose optimization techniques as appropriate, variously including the following: *Automated exposure control *Adjustment of mA and/or kV according to patient size (this includes techniques or standardized protocols for targeted exams where dose is matched to indication/reason for exam; i.e. extremities or head) *Use of iterative reconstruction technique FINDINGS: LUNG BASES: The visualized lung bases are unremarkable. LIVER, GALLBLADDER, AND BILIARY TREE: The liver is normal in size, shape, and attenuation. No focal hepatic lesion or biliary ductal dilatation is present. The gallbladder is surgically absent. There are clips in the gallbladder fossa. There is no biliary duct dilation. PANCREAS: Unremarkable. SPLEEN: Unremarkable. ADRENAL GLANDS: Unremarkable. KIDNEYS AND URETERS: The kidneys are normal in size, shape, and attenuation. No hydronephrosis, hydroureter, or calculi seen. No perinephric stranding. BLADDER: Unremarkable. GASTROINTESTINAL TRACT: Moderate stool is present throughout the colon. Appendix. ABDOMINAL WALL: No significant hernia is appreciated. LYMPH NODES: Normal. VASCULAR: Unremarkable. PELVIC VISCERA: Uterus and ovaries are unremarkable. There is a hyperenhancing crenulated right ovarian cyst/follicle. OSSEOUS STRUCTURES: Degenerative endplate changes are noted in the inferior L4 and superior S1 There are also mild degenerative changes in the SI joints with subchondral cysts and sclerosis. CT/CT abdomen pelvis w IV con IMPRESSION: Unremarkable examination. Rupturing mature right ovarian follicle. Cholecystectomy. Mild degenerative changes involving bilateral SI joints and lower lumbar spine. Fleischner guidelines were followed. Electronically signed by: Tyrone Vargas MD 12/31/2024 01:43 PM EDT Dictated By: Tyrone Vargas MD Signed By: <Electronically signed by Tyrone Vargas MD in OV> 12/31/24 1343 DD/ 1311 TD/TT: 12/31/24 1330 Harness Worker: [facility] External Provider IMG CT PROCEDURES Final Result * Hepatitis C Antibody with Reflex to HCV, RNA, Quantitative, Real-Time PCR (01/22/2024 9:13 AM EDT) [facility] Hepatitis C Antibody Nonreactive Nonreactive [facility] Comment:Antibodies to HCV no t detected; does not exclude early acuteHCV infection. Blood Venous blood specimen / Unknown 01/22/2024 9:13 AM EDT 01/22/2024 2:37 PM EDT Trina Fang MD LAB BLOOD ORDERABLES Final Result Performing Organization Address [facility] Co de Phone Number [facility] [address] [place] [phone] * HIV-1/2 Antigen and Antibodies, Fourth Generation, with Reflexes (01/22/2024 9:13 AM EDT) [facility] HIV AB/AG Nonreactive Nonreactive [facility] Comment:HIV-1 p24 Ag and/or HIV-1/HIV-2 Ab not detected.A test result that is nonreactive does not exclude thepossibility of exposure to or infection with HIV-1 and/orHIV-2. Nonreactive results in this assay for individualswith prior exposure to HIV-1 and/or HIV-2 may be due toantigen and antibody levels that are below the limit ofdetection of this assay.The [email or web address] HIV Ag/Ab Combo assay result andsupplemental assay results should be interpreted inconjunction with the patient's clinical presentation,history and other laboratory results. If the results areinconsistent with clinical evidence, additional testing issuggested to confirm the result. Blood Venous blood specimen / Unknown 01/22/2024 9:13 AM EDT 01/22/2024 2:37 PM EDT Trina Fang MD LAB BLOOD ORDERABLES Final Result Performing Organization Address City/[facility]/ZIP Co de Phone Number [facility] [address] [place] [phone] * Pap Smear (09/21/2022) Pap Negative for intraephithelial lesion or malignancy Negative for intraephithelial lesion or malignancy, Other HPV Undetected Undetected, Indeterminate, Quantitative, Not Detected us Historical Provider HEALTH MAINTENANCE Final Result from Last 3 Months or Most Recently Relevant to Health Maintenance Insurance [facility] C3 DENTAL-[facility] MEDICAID STAND ADULT DENTAL-[facility] MEDICAID STAND ADULT Care Teams Cake Icer Relationship Specialty Start Date End Date Trina Fang MD [address] [place] [address] [place] [address] PCP - General Internal Medicine 04/18/17
--- OUTSIDE RECORDS SUMMARY | 2025-01-12 13:20 | XMS_ITS | Encounter Summary ---
Author Organization [employer] Address [address] [facility] 7t [place] [address] Care Team Providers Care Honey Blender Name Role Phone Trina Fang MD Primary Care Provider [phone] Encounter Details Date Type Department Care Team ([facility] st Contact Info) Description 09/09/2024 Orders Only [facility] [address] [place] [address] Trina Fang MD [address] [place] [address] Social History Tobacco Use Types Packs/Day Years [...] Description 02/03/2025 10:00 AM EDT Office Visit [facility] [address] [place] [address] Trina Fang MD [address] [place] [address] 02/05/2025 11:00 AM EDT Office Visit [facility] [address] [place] [address] [place] Fang documented as of this encounter Visit Diagnoses Not on filedocumented in this encounter Additional Health Concerns Assessment Noted Time PHQ-9 Depression Total Score: 4 01/21/20 24 1:31 PM EDT documented as of this encounter Care Teams Honey Blender Relationship Specialty Start Date End Date Trina Fang MD [address] [place] [address] PCP - General Internal Medicine 04/18/17 documented as of this encounter
--- OUTSIDE RECORDS SUMMARY | 2025-01-12 13:20 | XMS_ITS | Encounter Summary ---
Author Organization [email or web address] Address [address] [place] [address] 7 [place] [address] Care Team Providers Care Executive Admin Name Role Phone Trina Fang MD Primary Care Provider [phone] Reason for Visit * Reason Comments Med Refill Encounter Details Date Type Department Care Team ([facility] st Contact Info) Description 07/28/2024 Refill [facility] [address] [place] [address] Trina Fang MD [address] [place] [address] Social History Tobacco Use Types Packs/Day Years [...] Description 02/03/2025 10:00 AM EDT Office Visit [facility] [address] [place] [address] Trina Fang MD [address] [place] [address] 02/05/2025 11:00 AM EDT Office Visit [facility] [address] [place] [address] [place] Fang documented as of this encounter Visit Diagnoses Not on filedocumented in this encounter Additional Health Concerns Assessment Noted Time PHQ-9 Depression Total Score: 4 01/21/20 24 1:31 PM EDT documented as of this encounter Care Teams Executive Admin Relationship Specialty Start Date End Date Trina aFng MD [address] [place] [address] PCP - General Internal Medicine 04/18/17 documented as of this encounter
--- OUTSIDE RECORDS SUMMARY | 2025-01-12 13:21 | XMS_ITS | Encounter Summary ---
Author Organization [facility] Address [address] [place] [address] Care Team Providers Care Calciner Operator Helper Name Role Phone Ruddy Logan MD Primary Care Prov ider Reason for Referral * Physical Medicine (Routine) - Closed Specialty Diagnoses / Procedures Referred By Contac t Referred To Contact Rehabilitation Diagnoses Backache, unspecified Jade Aguillon MD Phone: tel: [phone] fax: [facility] [place] [address] [address] Phone: tel: fax: Referral ID Status Reason Start Date Expiration Date V isits Requested Visits Authorized [id number] Closed Specialty Services Required 01/05/2014 01/05/2015 1 1 Encounter Details Date Type Department Care Team (Latest Contact Info) Description 01/05/2014 Transcribed Orders [address] [address] Jade Aguillon MD [address] [place] [phone] (Work) Backache, unspecified (Primary [...] Primary documented in this encounter Care Teams Calciner Operator Helper Relationship Specialty Start Date End Date Ruddy Logan MD [address] [place] [phone] PCP - General 03/03/20 documented as of this encounter
--- OUTSIDE RECORDS SUMMARY | 2025-01-12 13:21 | XMS_ITS | Clinical Summary ---
Author Organization [address] Address [address] [place] [address], [place] [address] Care Team Providers Care Whipped Topping Finisher Name Role Phone Ruddy Logan MD Primary [...] or Tdap in outside records received from [facility] Thyromegaly 08/19/2014 Overview (09/16/2014): Normal TSH and thyroid ultrasound in August 2014. Back pain, chronic 08/19/2014 Resolved Problems Problem Noted Date Diagnosed Date Resolved Date Backache 08/19/2014 Overview (10/02/2016): Updated during IMO/Dx update September 2016 Immunizations Immunization Administration Dates Next Due HPV, quadrivalent 11/12/2013,10/09/2013,03/04/20 [...] 82 09/14/2014 10:55 AM EDT Temperature 36.8 C (98.3 F) 09/14/2014 10:55 AM EDT Respiratory Rate 17 09/14/2014 10:55 AM EDT [...] Cervical cancer screening 09/10/2019 09/09/2014 Influenza vaccine 11/20/2024 Covid-19 vaccine series ( season) 2024 RSV Immunization (1 - 1-dose 75+ series) 07/22/2066 HIV screening Completed 09/14/2014, 08/19/2014 Hepatitis C screening Completed 09/14/2014 Meningococcal B Vaccine Aged Out No l [...] confidentiality may be protected by state law. If your state requires such protection, then the state law prohibits you from making any further disclosure of the information without the specific written consent of the person to whom it pertains, or as otherwise permitted by law. A general authorization for the release of medical or other information is NOT sufficient for this purpose. The performance of this assay has not been clinically validated in patients less than 2 years old. For additional information please refer to http://education.[employer]/faq/PYJ207 (This link is being provided for informational/ educational purposes only.) 09/14/2014 11:3 4 AM EDT 09/14/2014 11:34 AM EDT Narrative Resulting Agency Comment Performing Organization Information: Site ID: [id number] Name: [facility] Address: [address] [place] [address], [place] [address] Director: Laura Puga MD Edel Berkley [facility] BLOOD ORDERABLES Final Re sult Performing Organization Address [facility] Co de Phone Number [facility] [address] [place] [address] * Hepatitis C antibody (09/14/2014 11:34 AM EDT) Hepatitis C Ab NON-REACTI VE NON-REACTI VE [facility] Signal To Cut-Off 0.02 <1.00 [facility] Blood specimen (specimen) 09/14/2014 11:34 AM EDT 09/14/2014 11:34 AM EDT Narrative Resulting Agency Comment Performing Organization Information: Site ID: [id number] Name: [employer] Address: [address] [place] [address], [place] [address] Director: Laura Puga MD Edel Berkley [facility] BLOOD ORDERABLES Final Re sult Performing Organization Address [facility] de Phone Number [facility] [address] [place] [address] * Thinprep TIS PAP (Q) (09/09/2014 4:23 PM EDT) Pathologist [facility] Clinical Information NONE GIVEN [facility] Lmp: [...] has been evaluated with computer assisted technology. Freelance Recruiter: [facility] Comment:MXD, CT (ASCP) Specimen of unknown material (specimen) 09/09/2014 4:23 PM EDT 09/10/2014 8:59 AM EDT Narrative Resulting Agency Comment Performing Organization Information: Site ID: [id number] Name: [employer] Address: [address] [place] [address], [facility] [place] [address] Director: Laura Puga MD Edel Berkley [facility] ORDERA BLES Final Result [address] from Last 3 Months or Most Recently Relevant to Health Maintenance Insurance [place] Care Teams Whipped Topping Finisher Relationship Specialty Start Date End Date Ruddy Logan MD [address] [place] [address] PCP - General 03/03/20
--- OUTSIDE RECORDS SUMMARY | 2025-01-12 13:21 | XMS_ITS | Encounter Summary ---
Author Organization [employer] Address [address] [place] [address] Care Team Providers Care Furniture Rental Consultant Name Role Phone Trina Fang MD Primary Care Provider [phone] Encounter Details Date Type Department Care Team (Latest Contact Info) Description 09/08/2018 Abstract [facility] CONVERSIONS Dental, Provider, DDS Social History [...] Upcoming Encounters Date Type Department Care Team ( st Contact Info) Description 02/03/2025 10:00 AM EDT Office Visit [facility] P[facility] [address] [place] [address] Trina Fang MD [address] [place] [address] 02/05/2025 11:00 AM EDT Office Visit [facility] ADULT D[facility] [address] [place] [address] [place] Fang documented as of this encounter Visit Diagnoses Not on filedocumented in this encounter Care Teams Furniture Rental Consultant Relationship Specialty Start Date End Date Trina Fang MD [address] [place] [address] PCP - General Internal Medicine 04/18/17 documented as of this encounter
--- OUTSIDE RECORDS SUMMARY | 2025-01-12 13:21 | XMS_ITS | Encounter Summary ---
Author Organization [employer] Address [address] [place] [address] 7 [place] [address] Care Team Providers Care Project Management Instructor Name Role Phone Trina Fang MD Primary Care Provider [phone] Reason for Visit * Reason Onset Date Comments reschedule appt 01/30/2024 Encounter Details Date Type Department Care Team ([facility] Contact Info) Description 01/30/2024 Telephone [facility] [address] [place] [address] Julito Ortiz [address] [place] [address] reschedule appt Social History Tobacco Use Types [...] documented in this encounter Plan of Treatment Upcoming Encounters Date Type Department Care Team (Late st Contact Info) Description 02/03/2025 10:00 AM EDT Office Visit [facility] MED & PEDS [address] [place] [address] Trina Fang MD [address] [place] [address] 02/05/2025 11:00 AM EDT Office Visit [facility] [address] [place] [address] [place] documented as of this encounter Visit Diagnoses Not on filedocumented in this encounter Additional Health Concerns Assessment Noted Time PHQ-9 Depression Total Score: 4 01/21/20 24 1:31 PM EDT documented as of this encounter Care Teams Project Management Instructor Relationship Specialty Start Date End Date Trina Fang MD [address] [place] [address] PCP - General Internal Medicine 04/18/17 documented as of this encounter
--- OUTSIDE RECORDS SUMMARY | 2025-01-12 13:21 | XMS_ITS | Encounter Summary ---
Author Organization [email or web address] Address [address] [place] [address] 7 [place] [address] Care Team Providers Care Braider Setter Name Role Phone Trina Fang MD Primary Care Provider [phone] Reason for Visit * Reason Comments Med Refill Encounter Details Date Type Department Care Team ([facility] st Contact Info) Description 05/26/2024 Refill [facility] MED & PEDS [address] [place], [place] [phone] BarneyJasper Condon MD [address] [place] [address] Social History Tobacco Use Types Packs/Day Years [...] Description 02/03/2025 10:00 AM EDT Office Visit [facility] MED & PEDS [address] [place] [address] Trina Fang MD [address] [place] [address] 02/05/2025 11:00 AM EDT Office Visit [facility] ADULT DENTAL [address] [place] [address] [place] documented as of this encounter Visit Diagnoses Not on filedocumented in this encounter Additional Health Concerns Assessment Noted Time PHQ-9 Depression Total Score: 4 01/21/20 24 1:31 PM EDT documented as of this encounter Care Teams Braider Setter Relationship Specialty Start Date End Date Trina Fang MD [address] [place] [address] PCP - General Internal Medicine 04/18/17 documented as of this encounter
== END 2025-01-12 11:06 | disposition home or self-care (01) ==
LOC: HO.HGS 10:50
PROVIDERS: PCP Internal Medicine
DX: Z90.49 Acquired absence of other specified parts of digestive tract (principal); K59.00 Constipation, unspecified; R10.11 Right upper quadrant pain
CPT/HCPCS: 99213

== ENCOUNTER → 2025-01-12 10:50 | Outpatient (BNVA) | payer MEDICAID, SELFPAY | PROVIDERS: PCP Internal Medicine | DX: K59.00 Constipation, unspecified (principal); R10.11 Right upper quadrant pain; Z90.49 Acquired absence of other specified parts of digestive tract | CPT/HCPCS: 99212 ==

== ENCOUNTER 2025-02-05 10:46 | Outpatient (REF) | payer MEDICAID, SELFPAY ==
--- OUTSIDE RECORDS SUMMARY | 2025-02-03 10:00 | XMS_ITS | Encounter Summary ---
Author Organization [employer] Address [address] [place] [address] [place] [address] Care Team Providers Care Solid Center Winder Name Role Phone Trina Fang MD Primary Care Provider [phone] Reason for Visit * Reason Comments Annual Exam Encounter Details Date Type Department Care Team ([facility] Contact Info) Description 02/03/2025 10:00 AM EDT Office Visit [facility] [address] [place], [place] [phone] Trina Fang MD [address] [place] [address] Annual physical exam (Primary Dx); Other specified hypothyroidism; Psoriasis; Status post laparoscopic cholecystectomy; Other constipation Social History Tobacco Use Types Packs/Day Years Used Date Smoking Tobacco: Never Passive Smoke Exposure: Never Smokeless Tobacco: Never Alcohol Use Standard Drinks/Week Comments Yes 0 (1 standard drink = 0.6 oz pur e alcohol) Depression Answer Date Recorded Patient Health Questionnaire-9 Score 1 02/03/2025 Patient Health Questionnaire-9 Score 1 02/03/2025 Last PHQ-9: Questionnaire Data Not on file 1 Housing Stability Answer Date Recorded What is your housing situation today? I have kimberly lopez 02/03/[address] you li ve. Do you have problems with any of the following? None of the above 02/03/2025 Food Insecurity Answer Date Recorded Within the past 12 months, y ou worried that your food would run out before you got money to buy more: Never True 02/03/2025 Within the past 12 months,th e food you bought just didn't last and you didn't have enough money to get more: Never True Transportation Answer Date Recorded In the past 12 months, has l ack of transportation kept you from medical appts, meetings, work or from getting things needed for daily living? No 02/03/2025 Utilities Answer Date Recorded In the past 12 months, has t he electric, gas, oil or water company threatened to shut off services in your home? No 02/03/2025 Depression Answer Date Recorded Patient Health Questionnaire-2 Score 0 02/03/2025 Internet Access Answer Date Recorded Internet Access Q1 Yes 02/03/2025 Internet Access Q2 Not on file 02/03/2025 Comments No Sex and Gender Information Value Date Recorded Sex Assigned at Female 02/19/2022 10:28 AM EDT Legal Sex Female 10:28 AM EDT Gender Identity Female 02/19/2022 10:28 AM EDT Sexual Orientation Straight 02/19/2022 10 :28 AM EDT documented as of this encounter Last Filed Vital Signs Vital Sign Reading Time Taken Comments Blood Pressure 131/79 02/03/2025 10:07 AM EDT Pulse 76 02/03/2025 10:07 AM EDT Temperature - - Respiratory Rate 21 02/03/2025 10:07 AM EDT Oxygen Saturation 97% 02/03/2025 10:07 AM EDT Inhaled Oxygen Concentration - - Weight 73.5 kg (162 lb) 02/03/2025 10:07 AM EDT Height 162.6 cm (5' 4 ) 02/03/2025 10:07 AM EDT Body Mass Index 27.81 02/03/2025 10:07 AM EDT documented in this encounter Functional Status * Over the past 2 weeks, how often have you been bothered by any of the following problems? Question Answer Date of Assessment Author Patient Health Questionnaire-2 Score 0 01/20 10:32 AM EDT Carlotta Juan MA * Little interest or pleasure in doing things Answer Date of Assessment Author Not at all 02/03/2025 10:32 AM EDT Anali Juan MA * Feeling down, depressed, or hopeless Answer Date of Assessment Author Not at all 02/03/2025 10:32 AM EDT Anali Juan MA * Trouble falling or staying asleep, or sleeping too much Answer Date of Assessment Author Not at all 02/03/2025 10:32 AM Anali Nava MA * Feeling tired or having little energy Answer Date of Assessment Author Several days 02/03/2025 10:32 AM Anali Nava [place] * Poor appetite or overeating Answer Date of Assessment Author Not at all 02/03/2025 10:32 AM Anali Nava MA * Feeling bad about yourself - or that you are a failure or have let yourself or your family down Answer Date of Assessment Author Not at all 02/03/2025 10:32 AM Anali Nava MA * Trouble concentrating on things, such as reading the newspaper or watching television Answer Date of Assessment Author Not at all 02/03/2025 10:32 AM Anali Nava MA * Moving or speaking so slowly that other people could have noticed? Or the opposite - being so fidgety or restless that you have been moving around a lot more than usual. Answer Date of Assessment Author Not at all 02/03/2025 10:32 AM Anali Nava MA * Thoughts that you would be better off or hurting yourself in some way Answer Date of Assessment Author Not at all 02/03/2025 10:32 AM Anali Nava MA * Patient Health Questionnaire-9 Score Answer Date of Assessment Author 1 02/03/2025 10:32 AM Anali Nava MA * How difficult have these problems made it for you to do your work, take care of things at home, or get along with other people? Answer Date of Assessment Author Not difficult at all 02/03/2025 10:32 AM Carlotta Azevedo MA documented as of this encounter Progress Notes * Trina Fang MD - 02/03/2025 10:00 AM EDT KALLI Burger is a 34 y.o. female who presents for Annual Exam. HPI Miss Dominique Burger is here for her annual physical exam. Doing well today. Asymptomatic. History of laparoscopic cholecystectomy in May 2024. Doing well. History of constipation that is also resolved. History of right upper quadrant abdominal pain which is resolved. Problem List[1] Allergies[2] Medications Ordered Prior to Encounter[3] Review of Systems Constitutional: Negative for activity change, appetite change, chills and diaphoresis. HENT: Negative for dental problem, drooling, ear discharge, ear pain and hearing loss. Eyes: Negative for pain, discharge and itching. Respiratory: Negative for cough, choking and chest tightness. Cardiovascular: Negative for chest pain and leg swelling. Gastrointestinal: Negative for blood in stool and diarrhea. Genitourinary: Negative for difficulty urinating, dyspareunia, dysuria, enuresis, flank pain, frequency and genital sores. Musculoskeletal: Negative for arthralgias, gait problem and joint swelling. Skin: Negative for pallor. Neurological: Negative for dizziness, seizures, speech difficulty, light- headedness and numbness. Psychiatric/Behavioral: Negative for behavioral problems, confusion and decreased concentration. OBJECTIVE Vitals: 02/03/25 1007 BP: 131/79 BP Location: Left arm Patient Position: Sitting BP Cuff Size: Adult Pulse: 76 Resp: 21 SpO2: 97% Weight: 162 lb (73.5 kg) Height: 5' 4 (1.626 m) Physical Exam Constitutional: General: She is not in acute distress. Appearance: Normal appearance. She is not ill-appearing, toxic-appearing or diaphoretic. HENT: Head: Normocephalic. Right Ear: Tympanic membrane normal. There is no impacted cerumen. Left Ear: Tympanic membrane normal. There is no impacted cerumen. Nose: Nose normal. No congestion or rhinorrhea. Mouth/Throat: Mouth: Mucous membranes are moist. Eyes: General: No scleral icterus. Right eye: No discharge. Left eye: No discharge. Pupils: Pupils are equal, round, and reactive to light. Cardiovascular: Rate and Rhythm: Normal rate and regular rhythm. Heart sounds: No murmur heard. No friction rub. No gallop. Pulmonary: Effort: Pulmonary effort is normal. No respiratory distress. Breath sounds: No stridor. No wheezing, rhonchi or rales. Chest: Chest wall: No tenderness. Abdominal: General: There is no distension. Palpations: Abdomen is soft. There is no mass. Tenderness: There is no abdominal tenderness. There is no right CVA tenderness or left CVA tenderness. Musculoskeletal: General: Normal range of motion. Cervical back: Normal range of motion. Neurological: General: No focal deficit present. Mental Status: She is alert and oriented to person, place, and time. Psychiatric: Mood and Affect: Mood normal. Assessment/Plan Assessment/Plan Diagnoses and all orders for this visit: Annual physical exam Comments: Normal cardiopulmonary exam Pt is to maintain a healthy and balanced diet Orders: - CBC auto differential; Future - Comprehensive Metabolic Panel; Future - Lipid Panel, Standard; Future - TSH with Reflex to Free T4; Future Other specified hypothyroidism Comments: Repeat TSH Adjustment of medication as needed Pt is asymptomatic. Orders: - TSH with Reflex to Free T4; Future Psoriasis Comments: Stable No new lesions No acute intervention today. Status post laparoscopic cholecystectomy Comments: Pt is doing well Last general surgery evaluation ( 01/12/2025) : pt was found to be stable Her CT from 12/31/24 was reviewedP unremarkable, Rupturing mature ovarian follicles, b/l SI joint degenerative chanages. Other constipation Comments: Resolved High fiber diet To remain well hydrated. Orders: - CBC auto differential; Future - TSH with Reflex to Free T4; Future [1] Patient Active Problem List Diagnosis Hypothyroid Acute pain of right knee [2] Allergies Allergen Reactions Aspirin Swelling Penicillins Swelling and Unknown Shellfish Allergy Hives Other reaction(s): dyspnea [3] Current Outpatient Medications on File Prior to Visit Medication Sig Dispense Refill acyclovir (Zovirax) 5 % cream TO THE AFFECTED AREA(s) FIVE TIMES DAILY DIRECTED 5 g 3 betamethasone valerate (Valisone) 0.1 % ointment APPLY TO THE AFFECTED AREA(S) TWICE DAILY IN THE MORNING AND AT BEDTIME NEEDED 45 g 2 Calcium Carb-Cholecalciferol 500-10 MG-MCG tablet Take 1 tablet by mouth at bed time. Diclofenac Sodium 1 % gel APPLY 2 GRAM'S TO AFFECTED AREA(s) TWICE DAILY NEEDED FOR SEVERE PAIN 100 g 0 famotidine (Pepcid) 20 MG tablet Take 1 tablet by mouth. FLUoxetine (PROzac) 10 MG tablet Take 1 tablet by mouth at bed time. levothyroxine (Synthroid, Levoxyl) 50 MCG tablet Take 50 mcg by mouth. medroxyPROGESTERone (Depo-Provera) 400 MG/ML suspension inject 1 milliliter by intramuscular route every month multivitamin (Theragran) tablet Take 1 tablet by mouth. Erkrqang-Gbalwzdbl-NI 1 % solution Administer 4 drops into affected ear(s) 4 times daily. 10 mL 0 Sodium Fluoride 1.1 % cream [place] teeth for 2 minutes, morning and night. Spit, do not rinse. Do not eat or drink anything for 30 minutes following use. 112 g 3 tacrolimus (Protopic) 0.1 % ointment APPLY TOPICALLY TO AFFECTED AREA(s) TWICE DAILY 60 g 1 triamcinolone (Kenalog) 0.1 % cream APPLY TO THE AFFECTED AREA(S) TWICE DAILY IN THE MORNING AND ATBEDTIME FOR PAIN AND FOR SWELLING 30 g 2 No current facility-administered medications on file prior to visit. documented in this encounter Plan of Treatment Upcoming Encounters Date Type Department Care Team (Late st Contact Info) Description 08/10/2025 9:30 AM EDT Office Visit [facility] [address] [place] [address] [place] Scheduled Orders Name Type Priority Associated Diagnoses Orde r Schedule CBC auto differential Lab Routine Annual physical exam Other constipation Expected: 02/03/2025 (Approximate), Expires: 02/03/2026 Comprehensive Metabolic Panel Lab Routine Annual physical exam Expected: 02/03/2025 (Approximate), Expires: 02/03/2026 Lipid Panel, Standard Lab Routine Annual physical exam Expected: 02/03/2025 (Approximate), Expires: 02/03/2026 TSH with Reflex to Free T4 Lab Routine Annual physical exam Other specified hypothyroidism Other constipation Expected: 02/03/2025 (Approximate), Expires: 02/03/2026 documented as of this encounter Visit Diagnoses Diagnosis Annual physical exam- Primary Routine general medical examination at a health care facility Other specified hypothyroidism Psoriasis Other psoriasis Status post laparoscopic cholecystectomy Other postprocedural status Other constipation documented in this encounter Additional Health Concerns Assessment Noted Time PHQ-9 Depression Total Score: 1 02/04/20 25 10:32 AM EDT documented as of this encounter Care Teams Solid Center Winder Relationship Specialty Start Date End Date Trina Fang MD [address] [place], [place] [phone] PCP - General Internal Medicine 04/18/17 documented as of this encounter
--- OUTSIDE RECORDS SUMMARY | 2025-02-05 11:00 | XMS_ITS | Encounter Summary ---
Author Organization [employer] Address [address] [facility] 7[address] [place] [address] Care Team Providers Care Kerrick Kleaner Operator Name Role Phone Trina Fang MD Primary Care Provider [phone] Reason for Visit * Reason Comments Routine Cleaning Dental Exam Encounter Details Date Type Department Care Team ([facility] st Contact Info) Description 02/05/2025 11:00 AM EDT Office Visit [facility] ADULT D[facility] [address] [place] [address] [place] Fang Social History Tobacco Use Types [...] y.o. female. Time Out: Date: 02/05/2025 Location: [facility] Tooth: Maxilla and Mandible Procedure: Exam Verified the above with patient, records assistant, and provider. Confirmed via patient's chart, intraorally and by radiographs. Cavalry Scout: Yes. Language: [place]an and [place]. Cavalry Scout's Name: 34 y.o. years old female presents for a periodic examination done by Dr. Buddy Rubio DDS CONSENT FORM INITIALED & SIGNED BY THE PATIENT AND COUNTER SIGNED BY Dr. Buddy Rubio DDS Chief Complaint: I have been Medical History: Patient does not report any changes in health issues that could alter the Treatment Plan. Medical consult / medical clearance needed: No RED CLIFF: Pain: Yes. Molar #19. Spontaneous and Non [...] wnl Oropharynx - wnl Gingiva Color - Callender Contour - Smooth Recession - Yes Consistency [...] 2 - Endo Consult Phase 3 - Nancy #19 or RCT Phase 4 - Recare Patient agrees with treatment plan. Patient satisfied, dismissed in stable condition. NV: Endo Consultation Provider: Dr. Buddy Rubio DDS Dental Brand Marketing Specialist: Sebastián Goldsmith [facility] Supervising Dentist: Dr. Diaz documented in this encounter Plan of Treatment Upcoming Encounters Date Type Department Care Team (Late st Contact Info) Description 08/10/2025 9:30 AM EDT Office Visit [facility] ADULT D[facility] [address] [place] [address] [place] Scheduled Orders Name Type Priority Associated Diagnoses Orde r Schedule 19 MOD 19 MOD RESIN-BASED COMPOSITE - 3 SURF, POSTERIOR Dental Routine [address] arting 02/05/2025 CONSULTATION - DIAGNOSTIC SERVICE PROVIDED BY DENTIST OR PHYSICIAN OTHER THAN REQUESTING DENTIST OR PHYSICIAN Dental Routine 1 Occurrenc es starting 02/05/2025 PROPHYLAXIS - ADULT Dental Routine 1 Occ urrences starting 02/05/2025 documented as of this encounter Procedures Procedure Name Priority Date/Time Associated Diagnosis Comments PERIODIC ORAL EVALUATION - ESTABLISHED PATIENT Routine 02/05/2025 11:00 AM EDT documented in this encounter Visit Diagnoses Not on filedocumented in this encounter Additional Health Concerns Assessment Noted Time PHQ-9 Depression Total Score: 1 02/04/20 25 10:32 AM EDT documented as of this encounter Care Teams Kerrick Kleaner Operator Relationship Specialty Start Date End Date Trina Fang MD [address] [place] [address] PCP - General Internal Medicine 04/18/17 documented as of this encounter
--- OUTSIDE RECORDS SUMMARY | 2025-02-05 13:20 | XMS_ITS | Encounter Summary ---
Author Organization [employer] Address [address] [place] [address] [place] [address] Care Team Providers Care Developmental Mathematics Instructor Name Role Phone Trina Fang MD Primary Care Provider [phone] Reason for Visit * Reason Onset Date Comments Chart Prep 02/02/2025 Encounter Details Date Type Department Care Team ([facility] Contact Info) Description 02/02/2025 Telephone [facility] CHC MED & PEDS [address] [place], [place] [phone] Trina Fang MD [address] [place] [address] Chart Prep Social History Tobacco Use Types Packs/Day Years [...] encounter Miscellaneous Notes * Telephone Encounter - Eden Arevalo [place] - 02/02/2025 3:55 PM EDT Chart Prep Labs: not applicable Images: done Referrals: complete Vaccines due: Covid, Flu, Hep A, and HPV Screenings: LMP Overdue care gaps: SBIRT, SDOH, PHQ-9, Disability screen, and Tobacco documented in this encounter Plan of Treatment Upcoming Encounters Date Type Department Care Team ([facility] st Contact Info) Description 08/10/2025 9:30 AM EDT Office Visit [facility] ADULT DENTAL [address] [place] [address] [place] Fang documented as of this encounter Visit Diagnoses Not on filedocumented in this encounter Additional Health Concerns Assessment Noted Time PHQ-9 Depression Total Score: 4 01/21/20 24 1:31 PM EDT documented as of this encounter Care Teams Developmental Mathematics Instructor Relationship Specialty Start Date End Date Trina Fang MD [address] [place] [address] PCP - General Internal Medicine 04/18/17 documented as of this encounter
--- OUTSIDE RECORDS SUMMARY | 2025-02-05 13:20 | XMS_ITS | Clinical Summary ---
Author Organization [address] Address [address] [place] [address], [place] [address] Care Team Providers Care Maintenance Supervisor Name Role Phone Ruddy Logan MD Primary [...] or Tdap in outside records received from [facility] Thyromegaly 08/19/2014 Overview (09/16/2014): Normal TSH and [...] Influenza vaccine 11/20/2024 Covid-19 vaccine series ( - 2024- season) 2024 RSV Immunization (1 - 1-dose [...] old. For additional information please refer to http://education.[employer].IPX/faq/NAQ683 (This link is being provided for informational/ educational purposes only.) 09/14/2014 11:3 4 AM EDT 09/14/2014 11:34 AM EDT Narrative Resulting Agency Comment Performing Organization Information: Site ID: [id number] Name: [facility] Address: [address] [place] [address], [place] [address] Director: Laura Puga MD Edel Berkley [facility] BLOOD ORDERABLES Final Re sult Performing Organization Address [facility] Co de Phone Number [facility] [address] [place] [address] * Hepatitis C antibody (09/14/2014 11:34 AM EDT) Hepatitis C Ab NON-REACTI VE NON-REACTI VE [facility] Signal To Cut-Off 0.02 <1.00 [facility] Blood specimen (specimen) 09/14/2014 11:34 AM EDT 09/14/2014 11:34 AM EDT Narrative Resulting Agency Comment Performing Organization Information: Site ID: [id number] Name: [employer] [facility] [employer] [facility] Address: [address] [place] [address], [place] [address] Director: Laura Puga MD Edel Berkley [facility] BLOOD ORDERABLES Final Re sult Performing Organization Address [facility] de Phone Number [facility] [address] [place] [address] * Thinprep TIS PAP (Q) (09/09/2014 4:23 PM EDT) Pathologist [facility] Clinical Information NONE GIVEN [facility] [...] has been evaluated with computer assisted technology. Project Officer: [facility] Comment:MXD, CT (ASCP) Specimen of unknown material (specimen) 09/09/2014 4:23 PM EDT 09/10/2014 8:59 AM EDT Narrative Resulting Agency Comment Performing Organization Information: Site ID: [id number] Name: [facility] Address: [address] [place] [address], [place] [address] Director: Laura Puga MD Edel Berkley [facility] ORDERA BLES Final Result [address] from Last 3 Months or Most Recently Relevant to Health Maintenance Insurance [place] Care Teams Maintenance Supervisor Relationship Specialty Start Date End Date Ruddy Logan MD [address] [place] [address] PCP - General 03/03/20
--- OUTSIDE RECORDS SUMMARY | 2025-02-05 13:20 | XMS_ITS | Encounter Summary ---
Author Organization [employer] Address [address] [facility] 7t [place] [address] Care Team Providers Care Size Maker Name Role Phone Trina Fang MD Primary Care Provider [phone] Encounter Details Date Type Department Care Team ([facility] st Contact Info) Description 09/09/2024 Orders Only [facility] CHC MED & PEDS [address] [place], [place] [phone] Trina Fang MD 505 [place] [address] Social History Tobacco Use Types Packs/Day Years [...] Upcoming Encounters Date Type Department Care Team ([facility] st Contact Info) Description 08/10/2025 9:30 AM EDT Office Visit [facility] ADULT D[facility]AL 505 [place] [address] [place] documented as of this encounter Visit Diagnoses Not on filedocumented in this encounter Additional Health Concerns Assessment Noted Time PHQ-9 Depression Total Score: 4 01/21/20 24 1:31 PM EDT documented as of this encounter Care Teams Size Maker Relationship Specialty Start Date End Date Trina Fang MD 505 [place] [address] PCP - General Internal Medicine 04/18/17 documented as of this encounter
--- OUTSIDE RECORDS SUMMARY | 2025-02-05 13:20 | XMS_ITS | Clinical Summary ---
Author Organization [employer] Address [address] [facility] 7t [place] [address] Care Team Providers Care Air Conditioning Installer Supervisor Name Role Phone Trina Fang MD Primary Care Provider [phone] Allergies Active Allergy Reactions Criticality Noted Date Comments Aspirin Swelling 09/03/2022 Penicillins Swelling,Unknown 01/06/2016 Shellfish Allergy Hives 09/03/2022 Other reaction(s): dyspnea Medications * This document contains information received from the source organization and may not represent a complete record from that organization. Calcium Carb-Cholecalc iferol 500-10 MG-MCG tablet Take 1 tablet by mouth at bed time. 07/31/19 20 Active famotidine (Pepcid) 20 MG tablet Take 1 tablet by mouth. 10/20/19 22 Active FLUoxetine (PROzac) 10 MG tablet Take 1 tablet by mouth at bed time. 10/20/19 22 Active medroxyPROGEST ERone (Depo-Provera) 400 MG/ML suspension inject 1 milliliter by intramuscular route every month Active Neomycin-Polym yxin-HC 1 % solutionIndica tions:Ear ache Administer 4 drops into affected ear(s) 4 times daily. 10 mL 09/04/19 23 Active Diclofenac Sodium 1 % gelIndications :Acute pain of right knee APPLY 2 GRAM'S TO AFFECTED AREA(s) TWICE DAILY NEEDED FOR SEVERE PAIN 100 g 11/21/19 23 Active levothyroxine (Synthroid, Levoxyl) 50 MCG tablet Take 50 mcg by mouth. 10/03/19 23 Active triamcinolone (Kenalog) 0.1 % creamIndicatio ns:Psoriasis APPLY TO THE AFFECTED AREA(S) TWICE DAILY IN THE MORNING AND AT BEDTIME FOR PAIN AND FOR SWELLING 30 g 2 07/25/19 25 Active Sodium Fluoride 1.1 % cream [place] teeth for 2 minutes, morning and night. Spit, do not rinse. Do not eat or drink anything for 30 minutes following use. 112 g 3 08/22/19 25 Active acyclovir (Zovirax) 5 % creamIndicatio ns:Viral syndrome TO THE AFFECTED AREA(s) FIVE TIMES DAILY DIRECTED 5 g 3 09/10/19 25 Active betamethasone valerate (Valisone) 0.1 % ointmentIndica tions:Psoriasi s APPLY TO THE AFFECTED AREA(S) TWICE DAILY IN THE MORNING AND AT BEDTIME NEEDED 45 g 2 12/05/19 25 Active tacrolimus (Protopic) 0.1 % ointment APPLY TOPICALLY TO AFFECTED AREA(s) TWICE DAILY 60 g 1 12/05/19 25 Active multivitamin (Theragran) tablet Take 1 tablet by mouth. 10/23/19 19 025 Discontin ued(Thera py completed ) Active Problems Problem Noted Date Diagnosed Date Acute pain of right knee 11/08/2022 Assessment & Plan (11/08/2022 10:01 AM EDT): Apply ice elevate knee and rest Hypothyroid 08/07/2022 Encounters Date Type Department Care Team Description 02/05/2025 11:00 AM EDT Office Visit [facility] ADULT DENTAL [address] [place] [address] [place] 02/03/2025 10:00 AM EDT Office Visit [facility] MED & PEDS [address] [place] [address] Trina Fang MD Annual physical exam (Primary Dx); Other specified hypothyroidism; Psoriasis; Status post laparoscopic cholecystectomy; Other constipation 02/03/2025 Travel 02/02/2025 Telephone [facility] MED & PEDS [address] [place] [address] Trina Fang MD Chart Prep 01/27/2025 Patient Outreach [facility] [address] [place], [place] [phone] Trina Fang MD Pre-visit Planning (Pre visit planning LVM ) 12/31/2024 Orders Only [facility] External Provider, [facility] 12/04/2024 Refill [facility] MED & PEDS [address] [place] [address] Trina Fang MD Psoriasis from Last 3 [...] Pulse 70 02/05/2025 11:00 AM EDT Temperature 36.5 C (97.7 F) 09/08/2024 10:09 AM EDT Respiratory Rate 21 02/03/2025 10:07 AM EDT Oxygen Saturation 97% 02/03/2025 10:07 AM EDT Inhaled Oxygen Concentration - - Weight 73.5 kg (162 lb) 02/03/2025 10:07 AM EDT Height 162.6 cm (5' 4 ) 02/03/2025 10:07 AM EDT Body Mass Index 27.81 02/03/2025 10:07 AM EDT Plan of Treatment Upcoming Encounters Date Type Department Care Team (Late st Contact Info) Description 08/10/2025 9:30 AM EDT Office Visit [facility] ADULT DENTAL [address] [place] [address] [place] Health Maintenance Due Date Last Done Comments Family Planning (PISQ) 07/22/2006 Hepatitis A Vaccines (1 of 2 - Risk 2-dose series) 07/22/2010 HPV Vaccines (3 - 3-dose series) 02/04/2014 11/12/2013, 10/09/2013, 03/04/2013 COVID-19 Vaccine ( season) 2024 11/08/2020, 10/18/2020 Influenza Vaccine (#1) 2024 02/10/2015 Dental X-Ray: Bitewings 12/26/2024 12/26/19, 05/21/2022, 05/21/2022 Dental Prophylaxis 01/24/2025 07/24/2024, 0 12/26/2023, 11/21/2022, Additional history exists Dental X-Ray: Full Mouth 05/22/2025 05/21/2022, 04/24 Dental Oral Exam 08/07/2025 02/05/2025, 07/2024, 12/26/2023, Additional history exists Alcohol/Substance Use Screening 02/03/2026 02/03/2025 Depression Screening 02/03/2026 02/03/2025, 02/04/20 Disability Screening 02/03/2026 02/03/2025 SDOH Screening 02/03/2026 02/03/2025 Tobacco Screening 02/05/2026 02/05/2025 Cervical Cancer Screening 09/22/2027 HPV/Cotest 09/22/2027 09/21/2022 [...] ESTABLISHED PATIENT Routine 02/05/2025 11:[address] ABDOMEN PELVIS W CONTRAST Routine 12/31/2024 1:11 PM EDT Full PROPHYLAXIS - ADULT Routine 07/24/2024 10:00 AM EDT HEPATITIS C [...] PM EDT Narrative 12/31/2024 1:46 PM EDT [place] [address] CT Scan Report Signed Patient: Dominique Burger MR#: [id number] : 1990 Acct:[id number] Age/Sex: 34 / F ADM Date: 12/31/24 Loc: HO.CT Attending Dr: Minor Florentino PA-C Ordering Physician: Minor Florentino PA-C Date of Service: 12/31/24 Procedure(s): CT abdomen pelvis w IV con Accession Number(s): [id number] cc: Trina Fang MD; Minor Florentino PA-C Report Number: [id number]: Total DLP = 503.00 mGy-cm Reason for [...] 12/31/24 1343 DD/ 1311 TD/TT: 12/31/24 1330 Hospital Orderly: Procedure Note Donotuseinterpreter, Image - 12/31/[address] [address] [address] Scan Report Signed Patient: Duke Burger#: [id number] [birth year] : 1990Acct:[id number] Age/Sex: 34 / FADM Date: 12/31/24 Loc: HO.CT Attending Dr: Minor Florentino PA-C Ordering Physician: Minor Florentino PA-C Date of Service: 12/31/24 Procedure(s): CT abdomen pelvis w IV con Accession Number(s): [id number] cc: Trina Fang MD; Minor Florentino PA-C Report Number: [id number]: Total DLP = 503.00 mGy-cm Reason for [...] 12/31/24 1343 DD/ 1311 TD/TT: 12/31/24 1330 Hospital Orderly: [facility] External Provider IMG CT PROCEDURES Final Result * Hepatitis C Antibody with Reflex to HCV, RNA, Quantitative, Real-Time PCR (01/22/2024 9:13 AM EDT) Hepatitis C Antibody Nonreactive Nonreactive [facility] Comment:Antibodies to HCV no t detected; does not exclude early acuteHCV infection. Blood Venous blood specimen / Unknown 01/22/2024 9:13 AM EDT 01/22/2024 2:37 PM EDT Trina Fang MD LAB BLOOD ORDERABLES Final Result [facility] [address] [place], [place] [phone] * HIV-1/2 Antigen and Antibodies, Fourth Generation, with Reflexes (01/22/2024 9:13 AM EDT) HIV AB/AG Nonreactive Nonreactive [facility] Comment:HIV-1 p24 Ag and/or HIV-1/HIV-2 Ab not detected.A test result that is nonreactive does not exclude thepossibility of exposure to or infection with HIV-1 and/orHIV-2. Nonreactive results in this assay for individualswith prior exposure to HIV-1 and/or HIV-2 may be due toantigen and antibody levels that are below the limit ofdetection of this assay.The [employer] HIV Ag/Ab Combo assay result andsupplemental assay results should be interpreted inconjunction with the patient's clinical presentation,history and other laboratory results. If the results areinconsistent with clinical evidence, additional testing issuggested to confirm the result. Blood Venous blood specimen / Unknown 01/22/2024 9:13 AM EDT 01/22/2024 2:37 PM EDT us Trina Fang MD LAB BLOOD ORDERABLES Final Result [facility] [address] [place] [phone] * Pap Smear (09/21/2022) Pap Negative for intraephithelial lesion or malignancy Negative for intraephithelial lesion or malignancy, Other HPV Undetected Undetected, Indeterminate, Quantitative, Not Detected Historical Provider HEALTH MAINTENANCE Final Result from Last 3 Months or Most Recently Relevant to Health Maintenance Insurance [facility] C[facility] [place] AD[place] Care Teams Air Conditioning Installer Supervisor Relationship Specialty Start Date End Date Trina Fang MD [address] [place] [address] [place] [address] PCP - General Internal Medicine 04/18/17
--- OUTSIDE RECORDS SUMMARY | 2025-02-05 13:20 | XMS_ITS | Encounter Summary ---
Author Organization [employer] Address [address] [facility] 7 [place] [address] Care Team Providers Care Electric Trucker Name Role Phone Trina Fang MD Primary Care Provider [phone] Reason for Visit * Reason Comments Med Refill Encounter Details Date Type Department Care Team ([facility] Contact Info) Description 05/26/2024 Refill [facility] CHC MED & PEDS [address] [place] [address] Jasper Alvarez MD [address] [place] [address] Social History Tobacco Use Types Packs/Day Years [...] Description 08/10/2025 9:30 AM EDT Office Visit [facility] ADULT DENTAL [address] [place] [address] [place] Fang documented as of this encounter Visit Diagnoses Not on filedocumented in this encounter Additional Health Concerns Assessment Noted Time PHQ-9 Depression Total Score: 4 01/21/20 24 1:31 PM EDT documented as of this encounter Care Teams Electric Trucker Relationship Specialty Start Date End Date Trina Fang MD [address] [place] [address] PCP - General Internal Medicine 04/18/17 documented as of this encounter
--- OUTSIDE RECORDS SUMMARY | 2025-02-05 13:20 | XMS_ITS | Encounter Summary ---
Author Organization [employer] Address [address] [facility] 7 [place] [address] Care Team Providers Care Splunk Dashboard Developer Name Role Phone Trina Fang MD Primary Care Provider [phone] Reason for Visit * Reason Comments Med Refill Encounter Details Date Type Department Care Team ([facility] Contact Info) Description 07/28/2024 Refill [facility] CHC MED & PEDS [address] [place] [address] Trina Fang MD [address] [place] [address] Social History Tobacco Use Types Packs/Day Years [...] Description 08/10/2025 9:30 AM EDT Office Visit [facility] ADULT DENTAL [address] [place] [address] [place] documented as of this encounter Visit Diagnoses Not on filedocumented in this encounter Additional Health Concerns Assessment Noted Time PHQ-9 Depression Total Score: 4 01/21/20 24 1:31 PM EDT documented as of this encounter Care Teams Splunk Dashboard Developer Relationship Specialty Start Date End Date Trina Fang MD [address] [place] [address] PCP - General Internal Medicine 04/18/17 documented as of this encounter
--- OUTSIDE RECORDS SUMMARY | 2025-02-05 13:20 | XMS_ITS | Encounter Summary ---
Author Organization [employer] [facility] Address [address] [place] [address] Care Team Providers Care Community Health Agent Name Role Phone Trina Fang MD Primary Care Provider [phone] Encounter Details Date Type Department Care Team (Latest Contact Info) Description 09/08/2018 Abstract [facility] CONVERSIONS Dental, Provider, DDS Social History [...] Description 08/10/2025 9:30 AM EDT Office Visit [facility] ADULT DENTAL [address] [place] [address] West Fang documented as of this encounter Visit Diagnoses Not on filedocumented in this encounter Care Teams Community Health Agent Relationship Specialty Start Date End Date Trina Fang MD [address] [place] [address] PCP - General Internal Medicine 04/18/17 documented as of this encounter
--- OUTSIDE RECORDS SUMMARY | 2025-02-05 13:20 | XMS_ITS | Encounter Summary ---
Author Organization [employer] Address [address] [facility] 7t [place] [address] Care Team Providers Care Livestock Farmer Name Role Phone Trina Fang MD Primary Care Provider [phone] Encounter Details Date Type Department Care Team (Latest Contact Info) Description 02/03/2025 Travel Social History Tobacco Use Types Packs/Day Years [...] housing situation today? I have kimberlygloria lopez 02/03/[address] you [...] AM EDT documented as of this encounter Functional Status * Over the [...] AM EDT Anali Juan MA * Feeling tired or having little energy Answer Date of Assessment Author Several days 02/03/2025 10:32 AM EDAnali Belle MA * Poor appetite or overeating Answer Date of Assessment Author Not at all 02/03/2025 10:32 AM CAROLINAT Anali Juan MA * Feeling bad about yourself - [...] 10:32 AM EDT Anali Juan MA * Thoughts that you would be better off or hurting yourself in some way Answer Date of Assessment Author Not at all 02/03/2025 10:32 AM Anali Nava MA * Patient Health Questionnaire-9 Score Answer Date of Assessment Author 1 02/03/2025 10:32 AM EDT Anali Juan MA * How difficult have these problems made it for you to do your work, take care of things at home, or get along with other people? Answer Date of Assessment Author Not difficult at all 02/03/2025 10:32 AM EDT Carlotta Velasquez MA documented as of this encounter Plan of Treatment Upcoming Encounters Date Type Department Care Team (Late st Contact Info) Description 08/10/2025 9:30 AM EDT Office Visit [facility] ADULT DENTAL [address] [place] [address] West Fang documented as of this encounter Visit Diagnoses Not on filedocumented in this encounter Additional Health Concerns Assessment Noted Time PHQ-9 Depression Total Score: 1 02/04/20 25 10:32 AM EDT documented as of this encounter Care Teams Livestock Farmer Relationship Specialty Start Date End Date Trina Fang MD [address] [place] [address] PCP - General Internal Medicine 04/18/17 documented as of this encounter
--- OUTSIDE RECORDS SUMMARY | 2025-02-05 13:20 | XMS_ITS | Encounter Summary ---
Author Organization [facility] Address [address] [place] [address] Care Team Providers Care Candle Molder Machine Name Role Phone Ruddy Logan MD Primary Care Prov ider Reason for Referral * Physical Medicine (Routine) - Closed Specialty Diagnoses / Procedures Referred By Contac t Referred To Contact Rehabilitation Diagnoses Backache, unspecified Jade Aguillon MD Phone: tel: [phone] fax: [facility] Services[address] [address] Phone: tel: fax: Referral ID Status Reason Start Date Expiration Date V isits Requested Visits Authorized [id number] Closed Specialty Services Required 01/05/2014 01/05/2015 1 1 Encounter Details Date Type Department Care Team (Latest Contact Info) Description 01/05/2014 Transcribed Orders [address] [address] Jade Aguillon MD [address] [place] [phone] (Work) Backache, unspecified (Primary [...] Primary documented in this encounter Care Teams Candle Molder Machine Relationship Specialty Start Date End Date Ruddy Logan MD [address] [place] [address] PCP - General 03/03/20 documented as of this encounter
--- OUTSIDE RECORDS SUMMARY | 2025-02-05 13:20 | XMS_ITS | Encounter Summary ---
Author Organization [employer] Address [address] [place] [address] [place] [address] Care Team Providers Care Safety Investigator/Cause Analyst Name Role Phone Trina Fang MD Primary Care Provider [phone] Reason for Visit * Reason Onset Date Comments reschedule appt 01/30/2024 Encounter Details Date Type Department Care Team ([facility] st Contact Info) Description 01/30/2024 Telephone [facility] ADULT DENTAL [address] [place] [address] Julito Ortiz [address] [place] [address] reschedule appt Social History Tobacco Use Types [...] your housing situation today? I have kimberly sing 01/14/[address] you li [...] Description 08/10/2025 9:30 AM EDT Office Visit [facility] ADULT DENTAL [address] [place] [address] West Fang documented as of this encounter Visit Diagnoses Not on filedocumented in this encounter Additional Health Concerns Assessment Noted Time PHQ-9 Depression Total Score: 4 01/21/20 24 1:31 PM EDT documented as of this encounter Care Teams Safety Investigator/Cause Analyst Relationship Specialty Start Date End Date Trina Fang MD [address] [place] [address] PCP - General Internal Medicine 04/18/17 documented as of this encounter
[2025-02-05 14:41] LABS: MANUAL DIFF FLAG NO
[2025-02-05 14:49] LABS: Hematocrit 41.6 % (37.0-47.0); Hemoglobin 13.2 g/dl (12.0-16.0); Imm Gran Abs Auto 0.02 X10*3/uL (0.00-0.03); Imm Gran Pct Auto 0.3 % (0.0-0.4); Lymphocytes Absolute Auto 1.8 X10*3/uL (1.2-4.9); Mean Corpuscular HGB Conc 31.7 g/dl (31.0-35.0); Mean Corpuscular Hemoglobin 28.0 pg (27.0-33.0); Mean Corpuscular Volume 88.3 fL (80.0-98.0); NRBC Abs Auto 0.000 X10*3/uL (0.0-0.012); NRBC Pct Auto 0.0 /100WBC (0.0-0.2); Platelet Count 180 X10*3/uL (160-400); Red Blood Count 4.71 X10*6/uL (4.20-5.50); White Blood Count 6.7 X10*3/uL (4.8-10.8)
[2025-02-05 15:56] LABS: Alanine Aminotransferase 35 U/L (0-31); Albumin Level 4.3 g/dL (3.5-5.0); Anion Gap 10 (12-20); Aspartate Amino Transferase 29 U/L (5-31); Blood Urea Nitrogen 14 mg/dL (9-16); Calcium 9.1 mg/dL (8.4-10.2); Carbon Dioxide 27 mmol/L (22-29); Chloride 107 mmol/L (96-108); Cholesterol 135 mg/dL (<200); Estimated Glomerular Filt Rate > 60; HDL Cholesterol 35 mg/dL (>40); Potassium 3.9 mmol/L (3.3-5.1); Sodium 140 mmol/L (135-145); Total Protein 7.4 g/dL (6.5-8.0); Triglycerides 108 mg/dL (<150)
[2025-02-05 18:06] LABS: Alkaline Phosphatase 96 U/L (39-117)
== END 2025-02-05 10:47 | disposition home or self-care (01) ==
LOC: HO.CHCLDS 10:46
PROVIDERS: Visit Provider Internal Medicine
DX: Z00.00 Encounter for general adult medical examination without abnormal findings (principal); E03.8 Other specified hypothyroidism; K59.09 Other constipation
CPT/HCPCS: 36415; 80053; 80061; 84443; 85025

== ENCOUNTER 2025-02-09 08:46 | Outpatient (REF) | payer MEDICAID, SELFPAY ==
--- OUTSIDE RECORDS SUMMARY | 2025-02-05 11:00 | XMS_ITS | Encounter Summary ---
Author Organization [employer] Address [address] [facility] 7t [place] [address] Care Team Providers Care Rn Pediatric Icu Name Role Phone Trina Fang MD Primary Care Provider [phone] Reason for Visit * Reason Comments Routine Cleaning Dental Exam Encounter Details Date Type Department Care Team ([facility] st Contact Info) Description 02/05/2025 11:00 AM EDT Office Visit [facility] ADULT D[facility] [address] [place] [address] West Fang Social History Tobacco Use Types Packs/Day Years [...] Sign Reading Time Taken Comments Blood Pressure 102/70 02/05/2025 11:00 AM EDT Pulse 70 02/05/2025 11:00 AM EDT Temperature - - Respiratory Rate - - Oxygen Saturation - - Inhaled Oxygen Concentration - - Weight - - Height - - Body Mass Index - - documented in this encounter Progress Notes * Buddy Rubio DDS - 02/05/2025 11:00 AM EDT Dental procedures in this visit [id number] - PERIODIC ORAL EVALUATION - ESTABLISHED PATIENT (Completed) Service provider: Buddy Rubio DDS Billing provider: Yasmine Diaz DDS Patient ID: Dominique Burger is a 34 y.o. female. Time Out: Date: 02/05/2025 Location: [facility] Tooth: Maxilla and Mandible Procedure: Exam Verified the above with patient, internet marketing assistant, and provider. Confirmed via patient's chart, intraorally and by radiographs. Edge Burnisher Uppers: Yes. Language: [place] and Citizen Of [place]. Edge Burnisher Uppers's Name: 34 y.o. years old female presents for a periodic examination done by Dr. Buddy Rubio DDS CONSENT FORM INITIALED & SIGNED BY THE PATIENT AND COUNTER SIGNED BY Dr. Buddy Rubio DDS Chief Complaint: I have been Medical History: Patient does not report any changes in health issues that could alter the Treatment Plan. Medical consult / medical clearance needed: No EKUK: Pain: Yes. Molar #19. Spontaneous and Non Spontaneous Duration: Variable Scale of pain from 1 - 10: 4 Aggravating factors: No. Pain radiating: No Postural variation: No Allergies: Reviewed in EHR Medications: Reviewed in EHR Vital signs: Blood pressure 102/70, pulse 70, last menstrual period 01/10/2025. Habits: Smoking: no Drinking: yes Brushinx day Flossin Cancer screening: Extra-oral: wnl Intraoral: wnl Extra-oral examination TMJ Deviation - no Clicking - bilateral Tenderness - no Facial symmetry - symmetrical Lymph nodes - wnl Cheeks - wnl Intraoral examination Soft tissues - wnl Palate - wnl Tongue - wnl Buccal mucosa - wnl Floor of mouth - wnl Vestibules - wnl Glands - wnl Duct area - wnl Oropharynx - wnl Gingiva Color - Storla Contour - Smooth Recession - Yes Consistency - Firm Texture - Thin Bleeding on probing - N/A Radiographs Full Mouth X-rays taken on: May 21, 2022 Quality are of diagnostic value and appropriate for radiographic analysis? : Yes Radiograph interpretation Thickened PDL : Yes Abnormal root resorption: No Horizontal Bone Resorption: No Abnormal root formation: No Vertical Bone Loss: No Periodontal diagnosis: Gingivitis Hard tissue exam Missing - as charted Plaque - Yes Calculus - No Abfraction - No Mobility - No Furcation - No Occlusion Overbite (mm): 3 mm Overjet (mm): 3 mm Diastema: no Right Molar Occlusion: class 3 Left Molar Occlusion: class 1 Right Canine Occlusion: class 1 Left Canine Occlusion: class 1 Midline: center Anterior/Posterior crossbite: no Arches: wide Wear Facets: yes DIAGNOSIS Findings, risks, benefits and alternatives discussed with pt. Reviewed radiographs with pt. Pointed out areas of radiographic calculus. Discussed sequelae of bacteria on gingiva and underlying bone. Recommended prophy, OHI. Advised increased frequency of brushing and flossing. TREATMENT PLAN Phase 1 - Prophy + OHI Phase 2 - Endo Consult Phase 3 - Restos. Take PA #19 to determine treatment course. Phase 4 - Recare Patient agrees with treatment plan. Patient satisfied, dismissed in stable condition. NV: Endo Consultation Provider: Dr. Buddy Rubio DDS Dental Clock And Watch Assembler: Sebastián Goldsmith RD Supervising Dentist: Dr. Diaz * Yasmine Diaz DDS - 02/05/2025 11:00 AM EDT I have reviewed the documentation and dental procedures completed by the rendering provider, LEIA Sam, and approve their chart entries for this visit. LEIA Fuentes DDS documented in this encounter Plan of Treatment Upcoming Encounters Date Type Department Care Team (Late st Contact Info) Description 08/10/2025 9:30 AM EDT Office Visit [facility] ADULT D[facility] [address] [place] [address] [place] Scheduled Orders Name Type Priority Associated Diagnoses Orde r Schedule 19 MOD 19 MOD RESIN-BASED COMPOSITE - 3 SURF, POSTERIOR Dental Routine [address] arting 02/05/2025 CONSULTATION - DIAGNOSTIC SERVICE PROVIDED BY DENTIST OR PHYSICIAN OTHER THAN REQUESTING DENTIST OR PHYSICIAN Dental Routine 1 Occurrenc es starting 02/05/2025 PROPHYLAXIS - ADULT Dental Routine 1 Occ urrences starting 02/05/2025 4 O 4 O RESIN-BASED COMPOSITE - 1 SURF, POSTERIOR Dental Routine [address] arting 02/05/2025 4 D 4 D RESIN-BASED COMPOSITE - 1 SURF, POSTERIOR Dental Routine [address] arting 02/05/2025 4 M 4 M RESIN-BASED COMPOSITE - 1 SURF, POSTERIOR Dental Routine [address] arting 02/05/2025 30 MOD 30 MOD RESIN-BASED COMPOSITE - 3 SURF, POSTERIOR Dental Routine [address] arting 02/05/2025 13 DO 13 DO RESIN-BASED COMPOSITE - 2 SURF, POSTERIOR Dental Routine [address] arting 02/05/2025 documented as of this encounter Procedures Procedure Name Priority Date/Time Associated Diagnosis Comments PERIODIC ORAL EVALUATION - ESTABLISHED PATIENT Routine 02/05/2025 11:00 AM EDT documented in this encounter Visit Diagnoses Not on filedocumented in this encounter Additional Health Concerns Assessment Noted Time PHQ-9 Depression Total Score: 1 02/04/20 25 10:32 AM EDT documented as of this encounter Care Teams Rn Pediatric Icu Relationship Specialty Start Date End Date Beauzile, Thevenin, MD [address] [place] [id number] PCP - General Internal Medicine 04/18/17 documented as of this encounter
--- OUTSIDE RECORDS SUMMARY | 2025-02-09 09:30 | XMS_ITS | Encounter Summary ---
Author Organization [employer] Address [address] [place] [address] [place] [address] Care Team Providers Care Specimen Processor Name Role Phone Trina Fang MD Primary Care Provider [phone] Reason for Visit * Reason Onset Date Comments reschedule appt 01/30/2024 Encounter Details Date Type Department Care Team ([facility] st Contact Info) Description 01/30/2024 Telephone [facility] ADULT D[facility] [address] [place] [address] Julito Ortiz [address] [place] [address] reschedule appt Social History Tobacco Use Types [...] 08/10/2025 9:30 AM EDT Office Visit [facility] ADULT D[facility] [address] [place] [address] West Fang documented as of this encounter Visit Diagnoses Not on filedocumented in this encounter Additional Health Concerns Assessment Noted Time PHQ-9 Depression Total Score: 4 01/21/20 24 1:31 PM EDT documented as of this encounter Care Teams Specimen Processor Relationship Specialty Start Date End Date Trina Fang MD [address] [place] [address] PCP - General Internal Medicine 04/18/17 documented as of this encounter
--- OUTSIDE RECORDS SUMMARY | 2025-02-09 09:30 | XMS_ITS | Clinical Summary ---
Author Organization [address] Address [address] [place] [address], [place] [address] Care Team Providers Care Cross Tie Maker Name Role Phone Ruddy Logan MD [...] or Tdap in outside records received from [employer] Thyromegaly 08/19/2014 Overview (09/16/2014): Normal TSH and [...] old. For additional information please refer to [email or web address] (This link is being provided for informational/ educational purposes only.) 09/14/2014 11:3 4 AM EDT 09/14/2014 11:34 AM EDT Narrative Resulting Agency Comment Performing Organization Information: Site ID: [id number] Name: [employer] Address: [address] [place] [address], [place] [address] Director: Laura Puga MD Edel Berkley [facility] LAB BLOOD ORDERABLES Final Re sult Performing Organization Address [facility] Co de Phone Number [facility] [address] [place] [address] * Hepatitis C antibody (09/14/2014 11:34 AM EDT) Hepatitis C Ab NON-REACTI VE NON-REACTI VE [facility] Signal To Cut-Off 0.02 <1.00 [facility] Blood specimen (specimen) 09/14/2014 11:34 AM EDT 09/14/2014 11:34 AM EDT Narrative Resulting Agency Comment Performing Organization Information: Site ID: [id number] Name: [employer] Address: [address] [place] [address], [place] [address] Director: Laura Puga MD Edel Berkley [facility] LAB BLOOD ORDERABLES Final Re sult Performing Organization Address [facility] de Phone Number [facility] [address] [place] [address] * Thinprep TIS PAP (Q) (09/09/2014 4:23 PM EDT) Pathologist [facility] Clinical Information NONE GIVEN [facility] Lmp: [...] has been evaluated with computer assisted technology. Fixed Capital Clerk: [facility] Comment:MXD, CT (ASCP) Specimen of unknown material (specimen) 09/09/2014 4:23 PM EDT 09/10/2014 8:59 AM EDT Narrative Resulting Agency Comment Performing Organization Information: Site ID: [id number] Name: [employer] Address: [address] [place] [address], [facility] [place] [address] Director: Laura Puga MD Edel Berkley [facility] ORDERA BLES Final Result [address] from Last 3 Months or Most Recently Relevant to Health Maintenance Insurance [place] Care Teams Cross Tie Maker Relationship Specialty Start Date End Date Ruddy Logan MD [address] [place] [address] PCP - General 03/03/20
--- OUTSIDE RECORDS SUMMARY | 2025-02-09 09:30 | XMS_ITS | Encounter Summary ---
Author Organization [employer] Address [address] [facility] 7t [place] [address] Care Team Providers Care Shaper Hand Name Role Phone Trina Fang MD Primary Care Provider [phone] Encounter Details Date Type Department Care Team (Latest Contact Info) Description 02/08/2025 Results Follow-Up [facility] MED & PEDS [address] [place], [place] [phone] Emma Jordan RN [address] [place] [address] CBC auto differential, Comprehensive Metabolic Panel, Lipid Panel, Standard, TSH with Reflex to Free T4 Social History Tobacco Use Types Packs/Day Years [...] 9:30 AM EDT Office Visit [facility] ADULT DENTAL [address] [place] [address] West Fang documented as of this encounter Visit Diagnoses Not on filedocumented in this encounter Additional Health Concerns Assessment Noted Time PHQ-9 Depression Total Score: 1 02/04/20 25 10:32 AM EDT documented as of this encounter Care Teams Shaper Hand Relationship Specialty Start Date End Date Trina Fang MD [address] [place] [address] PCP - General Internal Medicine 04/18/17 documented as of this encounter
--- OUTSIDE RECORDS SUMMARY | 2025-02-09 09:30 | XMS_ITS | Encounter Summary ---
Author Organization [employer] Address [address] [place] [address] Care Team Providers Care Exterminator Helper Name Role Phone Trina Fang MD Primary Care Provider [phone] Reason for Referral * Imaging (Routine) - Authorized Specialty Diagnoses / Procedures Referred By Contac t Referred To Contact Radiology Diagnoses Transaminitis Procedures US Abdomen Comp w elastography Trina Fang MD [address] [place] [address] Phone: tel: fax: [address] Phone: tel: fax: Referral ID Status Reason Start Date Expiration Date V isits Requested Visits Authorized [id number] Authorized 02/07/2025 02/07/2026 1 1 Encounter Details Date Type Department Care Team (Late st Contact Info) Description 02/07/2025 Orders Only [facility] MED & PEDS [address] [place], [place] [phone] Trina Fang MD [address] [place], [place] [phone] Transaminitis (Primary Dx) Social History Tobacco Use Types [...] Description 08/10/2025 9:30 AM EDT Office Visit [facility] ADULT DENTAL [address] [place] [address] [place] Fang Scheduled Orders Name Type Priority Associated Diagnoses Orde r Schedule Hepatitis Panel, General Lab Routine Transaminitis Expected: 02/07/2025, Expires: 02/07/2026 Hepatitis B Surface Antibody, Qualitative Lab Routine Transaminitis Expected: 02/07/2025 (Approximate), Expires: 02/07/2026 US Abdomen Comp w elastography Imaging Routine Transaminitis Expected: 02/07/2025, Expires: 02/07/2026 Smooth Muscle Antibody with Reflex to Titer Lab Routine Transaminitis Expected: 02/07/2025 (Approximate), Expires: 02/07/2026 Immunoglobulins, Quantitative, IgA, IgG, IgM Lab Routine Transaminitis Expected: 02/07/2025 (Approximate), Expires: 02/07/2026 Prothrombin Time-INR Lab Routine Transaminitis Expected: 02/07/2025, Expires: 02/07/2026 Ferritin Lab Routine Transaminitis Expected: 02/07/2025, Expires: 02/07/2026 Iron And Total Iron Binding Capacity Lab Routine Transaminitis Expected: 02/07/2025, Expires: 02/07/2026 Alpha 1 Antitrypsin Lab Routine Transaminitis Expected: 02/07/2025 (Approximate), Expires: 02/07/2026 documented as of this encounter Visit Diagnoses Diagnosis Transaminitis- Primary Nonspecific elevation of levels of transaminase or lactic acid dehydrogenase (LDH) documented in this encounter Additional Health Concerns Assessment Noted Time PHQ-9 Depression Total Score: 1 02/04/20 25 10:32 AM EDT documented as of this encounter Care Teams Exterminator Helper Relationship Specialty Start Date End Date Trina Fang MD [address] [place] [address] PCP - General Internal Medicine 04/18/17 documented as of this encounter
--- OUTSIDE RECORDS SUMMARY | 2025-02-09 09:30 | XMS_ITS | Encounter Summary ---
Author Organization [employer] Address [address] [facility] 7 [place] [address] Care Team Providers Care Liquor Grinder Mill Operator Name Role Phone Trina Fang MD Primary Care Provider [phone] Reason for Visit * Reason Comments Med Refill Encounter Details Date Type Department Care Team ([facility] Contact Info) Description 05/26/2024 Refill [facility] MED & PEDS [address] [place] [address] Jasper Alvarez MD [address] [place] [address] Social History Tobacco Use Types Packs/Day Years [...] 08/10/2025 9:30 AM EDT Office Visit [facility] ADULT DENTAL [address] [place] [address] West Fang documented as of this encounter Visit Diagnoses Not on filedocumented in this encounter Additional Health Concerns Assessment Noted Time PHQ-9 Depression Total Score: 4 01/21/20 24 1:31 PM EDT documented as of this encounter Care Teams Liquor Grinder Mill Operator Relationship Specialty Start Date End Date Trina Fang MD [address] [place] [address] PCP - General Internal Medicine 04/18/17 documented as of this encounter
--- OUTSIDE RECORDS SUMMARY | 2025-02-09 09:30 | XMS_ITS | Encounter Summary ---
Author Organization [employer] Address [address] [facility] 7 [place] [address] Care Team Providers Care Sound Engineer Audio Control Name Role Phone Trina Fang MD Primary Care Provider [phone] Reason for Visit * Reason Comments Med Refill Encounter Details Date Type Department Care Team ([facility] Contact Info) Description 07/28/2024 Refill [facility] MED & PEDS [address] [place] [address] Trina Fang MD [address] [place] [address] Social History Tobacco Use Types Packs/Day Years [...] Description 08/10/2025 9:30 AM EDT Office Visit [facility] ADULT DENTAL [address] [place] [address] [place] Fang documented as of this encounter Visit Diagnoses Not on filedocumented in this encounter Additional Health Concerns Assessment Noted Time PHQ-9 Depression Total Score: 4 01/21/20 24 1:31 PM EDT documented as of this encounter Care Teams Sound Engineer Audio Control Relationship Specialty Start Date End Date Trina Fang MD [address] [place] [address] PCP - General Internal Medicine 04/18/17 documented as of this encounter
--- OUTSIDE RECORDS SUMMARY | 2025-02-09 09:30 | XMS_ITS | Clinical Summary ---
Author Organization [email or web address] Address [address] [facility] 7t [place] [address] Care Team Providers Care Learning And Development Administrator Name Role Phone Trina Fang MD Primary Care Provider [phone] Allergies Active Allergy Reactions Criticality Noted Date [...] 25 Active Sodium Fluoride 1.1 % cream [place] teeth for 2 minutes, morning and night. [...] tablet Take 1 tablet by mouth. 10/23/19 025 Discontin ued(Thera py completed ) Active Problems Problem Noted Date Diagnosed Date Acute pain of right knee 11/08/2022 Assessment & Plan (11/08/2022 10:01 AM EDT): Apply ice elevate knee and rest Hypothyroid 08/07/2022 Encounters Date Type Department Care Team Description 02/08/2025 Results Follow-Up [facility] MED & PEDS [address] [place] [address] Emma Jordan RN CBC auto differential, Comprehensive Metabolic Panel, Lipid Panel, Standard, TSH with Reflex to Free T4 02/07/[address] [facility] MED & PED[facility] [address] [place] [address] Trina Fang MD Transaminitis (Primary Dx) 02/05/2025 11:00 AM EDT Office Visit [facility] ADULT DENTAL [address] [place] [address] [place] Fang 02/03/2025 10:00 AM EDT Office Visit [facility] PED[facility] [address] [place] [address] Trina Fang MD Annual physical exam (Primary Dx); Other specified hypothyroidism; Psoriasis; Status post laparoscopic cholecystectomy; Other constipation 02/03/2025 Travel 02/02/[address] [facility] PED[facility] [address] [place] [address] Trina Fang MD Chart Prep 01/27/2025 Patient Outreach [facility] [address] [place], [place] [phone] Trina Fang MD Pre-visit Planning (Pre visit planning LVM ) 12/31/2024 Orders Only [facility] External Provider, [facility] 12/04/[address] [facility] [address] [place] [address] Trina Fang MD Psoriasis from Last 3 [...] 08/10/2025 9:30 AM EDT Office Visit [facility] ADULT DENTAL [address] [place] [address] West Fang Health Maintenance Due Date Last Done Comments Family Planning (PISQ) 07/22/2006 Hepatitis A Vaccines (1 of 2 - Risk 2-dose series) 07/22/2010 HPV Vaccines (3 - 3-dose series) 02/04/2014 11/12/2013, 10/09/2013, 03/04/2013 COVID-19 Vaccine (3 - 2025-26 season) 2024 11/08/2020, 10/18/2020 Influenza Vaccine (#1) 2024 02/10/2015 Dental X-Ray: Bitewings 12/26/2024 12/26/19 24, 05/21/2022, 05/21/2022 Dental Prophylaxis 01/24/2025 07/24/2024, 0 12/26/2023, 11/21/2022, Additional history exists Dental X-Ray: Full Mouth 05/22/2025 05/21/2022, 04/24 Dental Oral Exam 08/07/2025 02/05/2025, 07/2024, 12/26/2023, Additional history exists Alcohol/Substance Use Screening 02/03/2026 02/03/2025 Depression Screening 02/03/2026 02/03/2025, 02/04/20 25 Disability Screening 02/03/2026 02/03/2025 SDOH Screening 02/03/2026 [...] ESTABLISHED PATIENT Routine 02/05/2025 11:00 AM EDT TSH W/REFLEX TO FT4 Routine 02/05/2025 1 0:48 AM EDT Annual physical exam Other specified hypothyroidism Other constipation LIPID PANEL, STANDARD Routine 02/05/2025 10:48 AM EDT Annual physical exam COMPREHENSIVE METABOLIC PANEL Routine 02/05/2025 10:48 AM EDT Annual physical exam CBC WITH AUTO DIFFERENTIAL Routine 02/05/2025 10:48 AM EDT Annual physical exam Other constipation CT ABDOMEN PELVIS W CONTRAST Routine 12/31/2024 [...] Recently Relevant to Health Maintenance Results * TSH with Reflex to Free T4 (02/05/2025 10:48 AM EDT) TSH reflex Free T4 2.94 0.32 - 4.0 uIU/mL [facility] Blood Venous blood specimen / Unknown 02/05/2025 10:48 AM EDT 02/05/2025 2:38 PM EDT us Trina Fang MD LAB BLOOD ORDERABLES Final Result [facility] [address] [place] [address] [phone] * (ABNORMAL) CBC auto differential (02/05/2025 10:48 AM EDT) White Blood Count 6.7 4.8 - 10.8 X10*3/uL [facility] Red Blood Count 4.71 4.20 - 5.50 X10*6/uL [facility] Hemoglobin 13.2 12.0 - 16.0 g/dl [facility] Hematocrit 41.6 37.0 - 47.0 % [facility] Mean Corpuscular Volume 88.3 80.0 - 98.0 fL [facility] Mean Corpuscular Hemoglobin 28.0 27.0 - 33.0 pg [facility] Mean Corpuscular HGB Conc 31.7 31.0 - 35.0 g/dl [facility] Red Cell Distribution Width 15.1 11.0 - 16.0 % [facility] Platelet Count 180 160 - 400 X10*3/uL [facility] Mean Platelet Volume 13.0(H) 9.4 - 12.3 fL [facility] Neutrophils Percent Auto 66.0 45 - 73 % [facility] Imm Gran Pct Auto 0.3 0.0 - 0.4 % [facility] Lymphocytes Percent Auto 26.6 20 - 40 % [facility] Monocytes Percent Auto 5.4 2 - 11 % [facility] Eosinophils Percent Auto 1.2 0 - 4 % [facility] Basophils Percent Auto 0.5 0 - 2 % [facility] NRBC Pct Auto 0.0 0.0 - 0.2 /100WBC [facility] Neutrophils Absolute Auto 4.4 2.0 - 8.3 x10*3/uL [facility] Imm Gran Abs Auto 0.02 0.00 - 0.03 X10*3/uL [facility] Lymphocytes Absolute Auto 1.8 1.2 - 4.9 X10*3/uL [facility] Monocytes Absolute Auto 0.4 0.1 - 1.2 X10*3/uL [facility] Eosinophils Absolute Auto 0.1 0.0 - 0.4 X10*3/uL [facility] Basophils Absolute Auto 0.0 0.0 - 0.2 X10*3/uL [facility] NRBC Abs Auto 0.000 0.0 - 0.012 X10*3/uL [facility] Blood Venous blood specimen / Unknown 02/05/2025 10:48 AM EDT 02/05/2025 2:38 PM EDT us Trina Fang MD LAB BLOOD ORDERABLES Final Result [facility] [address] [place] [address] [phone] * (ABNORMAL) Lipid Panel, Standard (02/05/2025 10:48 AM EDT) Triglycerides 108 <150 mg/dL [facility] Comment:Desirable Triglyceri de: less than 150 mg/dLBorderline High Triglyceride 150-199 mg/dLHigh Triglyceride: 200-499 mg/dLVery High Triglyceride: greater than or equal to 5OO mg/dL Cholesterol 135 <200 mg/dL [facility] Comment:Desirable Cholestero l: less than 200 mg/dLBorderline High Cholesterol: 200-239 mg/dLHigh Cholesterol: greater than 239 mg/dL LDL Cholesterol Calculated 79 <100 mg/dL [facility] Comment:Desirable LDL: less than 100 mg/dLNear Optimal/Above Optimal LDL: 110- 129 mg/dLBorderline High LDL: 130-159 mg/dLHigh LDL: 160-189 mg/dLVery High LDL: greater than or equal to 190 mg/dL HDL Cholesterol 35(L) >40 mg/dL [facility] Comment:Desirable HDL: great er than 40 mg/dL Note: This HDL assay may give artificially low results in patients with liver disease. Blood Venous blood specimen / Unknown 02/05/2025 10:48 AM EDT 02/05/2025 2:38 PM EDT us Trina Fang MD LAB BLOOD ORDERABLES Final Result [facility] [address] [place] [address] [phone] * (ABNORMAL) Comprehensive Metabolic Panel (02/05/2025 10:48 AM EDT) Sodium 140 135 - 145 mmol/L [facility] Potassium 3.9 3.3 - 5.1 mmol/L [facility] Chloride 107 96 - 108 mmol/L [facility] Carbon Dioxide 27 22 - 29 mmol/L [facility] Anion Gap 10(L) 12 - 20 [facility] Urea Nitrogen (BUN) 14 9 - 16 mg/dL [facility] Creatinine, Serum 0.66 0.5 - 1.4 mg/dL [facility] Estimated Glomerular Filt Rate >60 [facility] Comment:Chronic Kidney Disea se: Estimated GFR < 60 mL/min/[id number] Kidney Disease: Estimated GFR < 15 mL/min/1.73m2 Glucose 84 60 - 115 mg/dL [facility] Calcium 9.1 8.4 - 10.2 mg/dL [facility] Bilirubin, Total 1.6(H) 0.0 - 1.0 mg/dL [facility] Aspartate Amino Transferase 29 5 - 31 U/L [facility] Alanine Aminotransferase 35(H) 0 - 31 U/L [facility] Total Protein 7.4 6.5 - 8.0 g/dL [facility] Albumin Level 4.3 3.5 - 5.0 g/dL [facility] Alkaline Phosphatase 96 39 - 117 U/L [facility] Blood Venous blood specimen / Unknown 02/05/2025 10:48 AM EDT 02/05/2025 2:38 PM EDT us Trina Fang MD LAB BLOOD ORDERABLES Final Result [facility] [address] [place] [phone] * CT Abdomen Pelvis w/ Contrast (12/31/2024 1:11 PM EDT) Anatomical Region Laterality Modality Body, Pelvis, Abdomen Computed T omography 12/31/2024 1:11 PM EDT Narrative 12/31/2024 1:46 PM EDT [address] [address] [address] Scan Report Signed Patient: Dominique Burger MR#: [id number] 88 : 1990 Acct:[id number] Age/Sex: 34 / F ADM Date: 12/31/24 Loc: HO.CT Attending Dr: Minor Florentino PA-C Ordering Physician: Minor Florentino PA-C Date of Service: 12/31/24 Procedure(s): CT abdomen pelvis w IV con Accession Number(s): [id number] cc: Trina Fang MD; Minor Florentino PA-C Report Number: [id number]: Total DLP = 503.00 mGy-cm Reason for [...] 12/31/24 1343 DD/ 1311 TD/TT: 12/31/24 1330 Offal Separator: Procedure Note Donotuseinterpreter, Image - 12/31/[address] [address] [address] Scan Report Signed Patient: Duke Burger#: [id number] [birth year] : 1990Acct:[id number] Age/Sex: 34 / FADM Date: 12/31/24 Loc: HO.CT Attending Dr: Minor Florentino PA-C Ordering Physician: Minor Florentino PA-C Date of Service: 12/31/24 Procedure(s): CT abdomen pelvis w IV con Accession Number(s): [id number] cc: Trina Fang MD; Minor Florentino PA-C Report Number: [id number]: Total DLP = 503.00 mGy-cm Reason for [...] 12/31/24 1343 DD/ 1311 TD/TT: 12/31/24 1330 Offal Separator: [facility] External Provider IMG CT PROCEDURES Final Result * Hepatitis C Antibody with Reflex to HCV, RNA, Quantitative, Real-Time PCR (01/22/2024 9:13 AM EDT) Hepatitis C Antibody Nonreactive Nonreactive [facility] Comment:Antibodies to HCV no t detected; does not exclude early acuteHCV infection. Blood Venous blood specimen / Unknown 01/22/2024 9:13 AM EDT 01/22/2024 2:37 PM EDT Trina Fang MD LAB BLOOD ORDERABLES Final Result [facility] [address] [place] [phone] * HIV-1/2 Antigen and Antibodies, Fourth Generation, with Reflexes (01/22/2024 9:13 AM EDT) HIV AB/AG Nonreactive Nonreactive [facility] Comment:HIV-1 p24 Ag and/or HIV-1/HIV-2 Ab not detected.A test result that is nonreactive does not exclude thepossibility of exposure to or infection with HIV-1 and/orHIV-2. Nonreactive results in this assay for individualswith prior exposure to HIV-1 and/or HIV-2 may be due toantigen and antibody levels that are below the limit ofdetection of this assay.The [employer] AliniSMX HIV Ag/Ab Combo assay result andsupplemental assay results should be interpreted inconjunction with the patient's clinical presentation,history and other laboratory results. If the results areinconsistent with clinical evidence, additional testing issuggested to confirm the result. Blood Venous blood specimen / Unknown 01/22/2024 9:13 AM EDT 01/22/2024 2:37 PM EDT us Trina Fang MD LAB BLOOD ORDERABLES Final Result [facility] [address] [place] [address] [phone] * Pap Smear (09/21/2022) Pap Negative for intraephithelial lesion or malignancy Negative for intraephithelial lesion or malignancy, Other HPV Undetected Undetected, Indeterminate, Quantitative, Not Detected us Historical Provider HEALTH MAINTENANCE Final Result from Last 3 Months or Most Recently Relevant to Health Maintenance Insurance [facility] STAND ADULT Care Teams Learning And Development Administrator Relationship Specialty Start Date End Date Trina Fang MD [address] [place] [address] PCP - General Internal Medicine 04/18/17
--- OUTSIDE RECORDS SUMMARY | 2025-02-09 09:30 | XMS_ITS | Encounter Summary ---
Author Organization [employer] Address [address] [facility] 7t [place] [address] Care Team Providers Care Stonecutter Assistant Name Role Phone Trina Fang MD Primary Care Provider [phone] Encounter Details Date Type Department Care Team ([facility] st Contact Info) Description 09/09/2024 Orders Only [facility] MED & PEDS [address] [place], [place] [phone] Trina Fang MD [address] [place] [address] Social History Tobacco Use Types Packs/Day Years [...] Upcoming Encounters Date Type Department Care Team ([facility] st Contact Info) Description 08/10/2025 9:30 AM EDT Office Visit [facility] ADULT DENTAL [address] [place] [address] West Fang documented as of this encounter Visit Diagnoses Not on filedocumented in this encounter Additional Health Concerns Assessment Noted Time PHQ-9 Depression Total Score: 4 01/21/20 24 1:31 PM EDT documented as of this encounter Care Teams Stonecutter Assistant Relationship Specialty Start Date End Date Trina Fang MD [address] [place] [address] PCP - General Internal Medicine 04/18/17 documented as of this encounter
--- OUTSIDE RECORDS SUMMARY | 2025-02-09 09:30 | XMS_ITS | Encounter Summary ---
Author Organization [facility] Address [address] [place] [address] Care Team Providers Care Slasher Name Role Phone Trina Fang MD Primary Care Provider [phone] Encounter Details Date Type Department Care Team (Latest Contact Info) Description 09/08/2018 Abstract [facility] Dental, Provider, DDS Social History [...] Description 08/10/2025 9:30 AM EDT Office Visit [facility] ADULT DENTAL [address] [place] [address] West Fang documented as of this encounter Visit Diagnoses Not on filedocumented in this encounter Care Teams Slasher Relationship Specialty Start Date End Date Trina Fang MD [address] [place] [address] PCP - General Internal Medicine 04/18/17 documented as of this encounter
--- OUTSIDE RECORDS SUMMARY | 2025-02-09 09:30 | XMS_ITS | Encounter Summary ---
Author Organization [facility] Address [address] [place] [address] Care Team Providers Care Sleep Medicine Physician Name Role Phone Ruddy Logan MD Primary Care Prov ider Reason for Referral * Physical Medicine (Routine) - Closed Specialty Diagnoses / Procedures Referred By Contac t Referred To Contact Rehabilitation Diagnoses Backache, unspecified Jade Aguillon MD Phone: tel: [phone] fax: [facility] [address] Phone: tel: fax: Referral ID Status Reason Start Date Expiration Date V isits Requested Visits Authorized [id number] Closed Specialty Services Required 01/05/2014 01/05/2015 1 1 Encounter Details Date Type Department Care Team (Latest Contact Info) Description 01/05/2014 Transcribed Orders [address] [address] Jade Aguillon MD [address] [place] [phone] (Work) Backache, unspecified (Primary [...] Primary documented in this encounter Care Teams Sleep Medicine Physician Relationship Specialty Start Date End Date Ruddy Logan MD [address] [place] [phone] PCP - General 03/03/20 documented as of this encounter
[2025-02-09 14:55] LABS: INTERNATIONAL NORM RATIO 1.0 (0.9-1.1); Prothrombin Time 11.7 SEC (10.9-12.4)
[2025-02-09 15:08] LABS: Iron 84 mcg/dL (30-160); Percent Iron Saturation 36 % (15-50); Total Iron Binding Capacity 231 mcg/dL (228-428); Unsaturated Iron Binding 147 ug/dL
[2025-02-09 15:24] LABS: Ferritin 214 ng/mL (10-122)
[2025-02-10 03:31] LABS: HBS Num1 240.59 mIU/mL (0-7.99); HBc Num1 0.18 S/CO (0.00-0.79); HBsAGNum1 0.66 S/CO (0.00-0.99); Hepatitis A Antibody IgM 0.13 Index (0-0.79); Hepatitis B Surface Antigen Negative (Negative); ~HepC Num1 0.10 S/CO (0.00-0.79); ~Hepatitis A Antibody IgM Nonreactive (Nonreactive); ~Hepatitis B Surface Antibody REACTIVE (Nonreactive); ~Hepatitis C Antibody Nonreactive (Nonreactive)
== END 2025-02-09 08:47 | disposition home or self-care (01) ==
LOC: HO.CHCLDS 08:46
PROVIDERS: Visit Provider Internal Medicine
DX: Z11.59 Encounter for screening for other viral diseases (principal); R74.01 Elevation of levels of liver transaminase levels
CPT/HCPCS: 36415; 82728; 82784; 83540; 85610; 86704; 86706; 86709; 86803; 87340